=== PATIENT | male | born 1990 ===

== ENCOUNTER 2020-05-16 17:12 | Emergency (ER) | payer OTHER, MEDICAID, SELFPAY ==
[2020-05-16 18:59] VITALS: BP 130/73; PULSE 81; RESP 16; TEMP 37.1; O2SAT 98; BMI 21.0
--- NOTE | 2020-05-16 19:00 | XR_ITS ---
EXAMINATION: XR FOOT, RIGHT CLINICAL INFORMATION: Pain, injury COMPARISON: None TECHNIQUE: AP, lateral, and oblique views of the right foot. FINDINGS: No evidence for an acute fracture or dislocation. Alignment is within normal limits. XR/XR foot RT min 3V IMPRESSION: No acute fracture or dislocation.
--- NOTE | 2020-05-16 19:38 | PC.NURSE ---
patient a&ox3, rle 11/16 pain, + csm/pulses, will continue to monitor.
[2020-05-16 20:26] VITALS: BP 128/72; PULSE 83; RESP 17; TEMP 36.8; O2SAT 98
--- NOTE | 2020-05-16 20:30 | ED_ITS ---
HPI - Extremity Injury (Lower) General Chief Complaint: Extremity Injury, Lower Stated Complaint: LEG PAIN Time Seen by Provider: 05/16/20 19:00 Source: patient Mode of arrival: ambulatory Limitations: no limitations History of Present Illness HPI Narrative: States was helping another colleague at work and lifted got dropped on his right foot. He did have work boots on. States 7 pain to the dorsum of the distal right foot. Date of injury 05/16/2020 Occurred at work from [employer] Up-to-date on tetanus vaccination Walking with slight limp Onset (ago): minute(s) Type of Injury: other (Crushing like injury) Place: work Severity: mild Exacerbating factors: weight bearing Context: direct blow Associated symptoms: ambulatory Other symptoms: none Related Data Allergies Allergy/AdvReac Type Severity Reaction Status Date / Time No Known Allergies Allergy Unverified 01/25/20 19:48 [No Known Allergies*] Review of Systems Review of Systems: Constitutional: No Weight loss, No Fever, No Chills, No Night Sweats, No Fatigue, No Malaise ENT/Mouth: No Hearing loss, No Ear Pain, No Nasal Congestion, No Sinus Pain, No Hoarseness, No sore throat, No Rhinorrhea, No Swallowing Difficulty Eyes: No Eye Pain Cardiovascular: No Chest Pain Respiratory: No Cough Gastrointestinal: No abdominal pain Musculoskeletal: No joint pain, No Myalgias, No Joint Swelling, positive right foot pain Skin: No Skin Lesions, No rash Neuro: No Weakness, No Numbness, No Paresthesias, No Loss of Consciousness, No Dizziness, No Headache Psych: No Social Issues Heme/Lymph: No Bruising, No Bleeding,No Lymphadenopathy Endocrine: No Polyuria, No Polydipsia, No Temperature Intolerance Yes all other systems are reviewed and are negative [facility] Past Medical History Medical History (Updated 05/16/20 @ 20:32 by Joaquín Salcido NP) Anxiety Asthma Social History Social History Smoking Status: Current every day smoker Use of substances other than those prescribed or required for medical reasons: No Advance Directives: No Physical Exam Vital Signs: Vital Signs: Last Vital Signs Temp 98.3 F 05/16/20 20:26 Pulse 83 05/16/20 20:26 Resp 17 05/16/20 20:26 BP 128/72 05/16/20 20:26 Pulse Ox 98 05/16/20 20:26 Body Mass Index 21.0 Reviewed Const: General: cooperative and healthy appearing; No acute distress or intoxicated appearing Nutritional Appearance: average body habitus Orientation/consciousness: patient oriented x3 Resp: Effort & Inspection: normal respiratory effort Cardio: Jugular venous distension: no JVD Skin: General skin exam: no rashes or lesions noted Neuro: General: patient oriented x3 Extrem: Other: Dorsum right foot without any obvious ecchymoses, swelling, erythema or injury. Mild tender palpation over the distal dorsal aspect of the foot. General: Yes normal to inspection Course Course Course Narrative: X-ray no acute fracture. Willie wrap, comfort care and will follow-up with [facility]. Ambulatory steady gait with Willie wrap. MDM - Extremity Injury (Lower) Medical Records Attestation: I reviewed the patient's medical records. Lab Data Attestation: I reviewed the patient's lab results. Imaging Data Right foot x-ray: Radiologist's impression: [place] [id number] XRay Report Signed Patient: Yash Almaraz#: [id number] : 1990Acct:[id number] Age/Sex: 29 / MADM Date: 05/16/20 Loc: HO.ED Attending Dr: Ordering Physician: Joaquín Salcido NP Date of Service: 05/16/20 Procedure(s): XR foot RT min 3V Accession Number(s): [id number] cc: Joaquín Salcido NP~ EXAMINATION: XR FOOT, RIGHT CLINICAL INFORMATION: Pain, injury COMPARISON: None TECHNIQUE: AP, lateral, and oblique views of the right foot. FINDINGS: No evidence for an acute fracture or dislocation. Alignment is within normal limits. XR/XR foot RT min 3V IMPRESSION: No acute fracture or dislocation. Dictated By:GEORGI GARCIA MD Signed By:<Electronically signed by GEORGI GARCIA MD in OV>05/16/201956 DD/ 99 TD/TT: List Of First Job Ideas: GT Discharge Plan Discharge Clinical Impression: Contusion of foot, right Patient Disposition: Home, Self-Care Instructions: Foot Contusion (ED) Additional Instructions: You suffered a foot bruise The x-ray of your foot does not show any evidence of broken bones Ice, elevate, rest Willie wrap for comfort Tylenol or Motrin [id number] for pain discomfort Return if any concerns or worsening symptoms otherwise follow-[facility] as needed as this injury occurred at work Thank you Referrals: [facility] [Provider Group] - 2 days Stand Alone Forms: Work/School Release
== END 2020-05-16 20:55 | disposition home or self-care (01) ==
PROVIDERS: Emergency Provider Internal Medicine
DX: S90.32XA Contusion of left foot, initial encounter (principal); W20.8XXA Other cause of strike by thrown, projected or falling object, initial encounter; Y93.89 Activity, other specified; Y92.9 Unspecified place or not applicable; Y99.0 Civilian activity done for income or pay
CPT/HCPCS: 73630; 99283; 99284

== ENCOUNTER 2020-09-11 10:02 | Outpatient (REF) | payer MEDICAID, SELFPAY ==
--- NOTE | 2020-09-11 13:43 | MHC.AU.ANO ---
Adult Audiological Evaluation Date of Visit: 09/11/20 Import Specialist Used: Estonian- In Person Reason for Appointment: Patient recently had a hearing screening at his place of employment. He was found to have high frequency hearing loss, and a full evaluation was recommended. He reports that at his previous job, he was in loud noise for a majority of the day and used ear plugs. At his current job, he is in noise less often. He reports that occasionally, he will need to enter a room where loud machinery is still running, but it is not for long stretches of time. Patient reports that it is difficult to hear people who are behind him. It is also difficult to understand people when there is a lot of background noise. Patient has also been experiencing pain in his right ear. Hearing Handicap Inventory: HHIE SCORE: 8 Based on HHIE score, patient has: No perceived hearing handicap Ear History: Recent Ear Drainage: None Reported Recent Ear Pain: Right Ear Family History of Hearing Loss?: No Recent Ear Infections: None Reported History of Ear Wax Buildup: None Reported Previous Ear Surgery: None Reported Bothersome Tinnitus/Ringing/Noises in Ears: Both Ears Ear used on the phone: Both Ears Blocked/Full Sensation in Ear(s): None Reported History of occupational noise exposure?: Yes History: No Medical History: Medical History: Headache, High Blood Pressure, Tobacco Use, Asthma Otoscopy: Right Ear: Unremarkable Left Ear: Unremarkable Tympanometry: Tympanometry performed due to: To assess integrity of the middle ear system Right Ear: Normal Middle Ear System (Type A) Left Ear: Normal Middle Ear System (Type A) Otoacoustic Emissions Frequency Range Used: 1.6-8 kHz Right Ear Results: Present 1.6-3 kHz, Absent 4-8 kHz Analysis: Reduced/Absent emissions suggest cochlear dysfunction Results are consistent with degree and configuration of hearing loss Left Ear Results: Present 1.6-3 kHz, Absent 4-8 kHz Analysis: Reduced/Absent emissions suggest cochlear dysfunction Results are consistent with degree and configuration of hearing loss Hearing Evaluation: Transducer(s) Used: Insert Earphones Method: Conventional Audiometry Stimuli Used: Pure Tones Right Ear: Description of Hearing: Normal 250-4000 Hz, sloping to moderate sensorineural hearing loss at 6000 Hz and rising to mild at 8000 Hz Left Ear: Description of Hearing: Normal 250-3000 Hz, sloping to moderate sensorineural hearing loss at 1275-0707 Hz and rising to mild at 8000 Hz Speech Recognition Threshold (SRT): Method Used: Recorded Lists Right Ear: 20 dBHL Left Ear: 25 dBHL Word Discrimination: Method: Recorded Lists Word Lists Used: Lista Bisil?bica (Estonian) Right Ear: 96% at 60 dBHL Left Ear: 96% at 65 dBHL Interpretation of Results: Patient presents with normal low and mid frequency hearing. In both ears (worse in the left), there is a notch to moderate hearing loss around 6000 Hz that rises back to mild at 8000 Hz. In a quiet environment, it is likely that the patient is able to follow along well in conversation. If the speaker is not directly in front of him, or if he is in a noisy environment, he likely has increased difficulty understanding speech. Hearing aids are not warranted at this time. Recommendations: Audiological re-evaluation in one year. Hearing protection should be used when around loud noise. Hearing aids are not yet warranted. Follow-up with PCP or referral to Ear, Nose, and Throat may be warranted to discuss pain in right ear, as well as asymmetry at 4000 Hz (left ear worse). To help optimize the patient's hearing: -Minimize background noise whenever possible. -Speak in a clear voice, from a close distance, and [id number]. -Gain the patient's full attention before talking. -Patient may benefit from use of headphones, such as the Maria Esther Hearphones, that provide slight amplification while reducing background noise. These types of products would be most practical for situations where external noise cannot be controlled, such as a busy restaurant or at a gathering. They are not intended for use all day, and are not intended to be used as a hearing aid. Diagnosis: Primary Diagnosis: H90.3 Bilateral Sensorineural Hearing Loss Services Performed: Comprehensive Audiological Evaluation (CPT 92297), Limited Otoacoustic Emissions (CPT 04420), Tympanometry (CPT 64310) Signature: Provider: Eloise Arriola, [facility]
== END 2020-09-11 10:03 | disposition home or self-care (01) ==
LOC: HO.SH 10:02
PROVIDERS: Visit Provider Registered Nurse
DX: H90.3 Sensorineural hearing loss, bilateral (principal)
CPT/HCPCS: 92557; 92567; 92587

== ENCOUNTER 2020-11-10 04:14 | Emergency (ER) | payer MEDICAID, SELFPAY ==
[2020-11-10 04:30] VITALS: BP 126/70; PULSE 76; RESP 18; TEMP 36.8; O2SAT 97; BMI 24.4
--- NOTE | 2020-11-10 05:22 | ED.GENADULT ---
HPI - General Adult General Chief complaint: General Medical Stated complaint: multiple complaints Time Seen by Provider: 11/10/20 05:22 Source: patient and deaf interpreter Mode of arrival: ambulatory History of Present Illness HPI narrative: 29-year-old male with presentation for posterior left knee pain for 1 week that he states has worsened over time and associated with some mild pain when going up and down stairs. In addition, he states that he feels like his albuterol inhaler has not been working as well as usual. Otherwise, he denies any fevers, chills, cough, sore throat. Related Data Previous Rx's Medication Instructions Recorded cephalexin 500 mg PO Q12H 5 Days #10 cap 11/10/20 prednisone 40 mg PO DAILY 4 Days #8 tab 11/10/20 Allergies Allergy/AdvReac Type Severity Reaction Status Date / Time seafood Allergy Anaphylaxis Verified 11/10/20 04:36 Review of Systems Review of Systems: Pertinent positives and negatives as stated in HPI 10 point review of systems otherwise negative. [facility] Past Medical History Source: nursing notes reviewed Medical History Anxiety Asthma Depression Social History Social History Advance Directives: No Advance Directives Information Provided: No Physical Exam Vital Signs: Vital Signs: Last Vital Signs Temp 98.2 F 11/10/20 04:30 Pulse 66 11/10/20 05:59 Resp 18 11/10/20 04:30 BP 126/70 11/10/20 04:30 Pulse Ox 97 11/10/20 04:30 Body Mass Index 24.4 VITAL SIGNS: Reviewed. GENERAL: Well developed, well nourished, in no acute distress. HEAD: Normocephalic/atraumatic EYES: PERRLA, EOMI OROPHARYNX: no oral lesions noted, posterior pharynx clear NECK: Supple, no adenopathy LUNGS: Normal breath sounds , no tachypnea, no increased work of breathing, able to speak in full sentences. SpO2<97> CARDIOVASCULAR: Regular rate and rhythm without noted murmurs ABDOMEN: Soft, non-tender, non-distended with bowel sounds. MUSCULOSKELETAL: No tenderness, deformities, but mild swelling noted at the left posterior knee with surrounding erythema and apparent rash over this area EXTREMITIES: No cyanosis, clubbing or edema. SKIN: Inspection of the skin reveals but papular rash noted to the left posterior knee NEUROLOGIC: Alert and oriented x 4. Strength and sensation to light touch were grossly intact x 4. Course Course Course Narrative: 29-year-old male with history and clinical presentation suggestive of possible Matthews cyst to left posterior knee and will provide patient with an albuterol treatment and initiate a short course oral steroids. On re-evaluation patient states that he is feeling better after receiving the albuterol treatment and he will be discharged in stable condition with remaining course of antibiotics. Discharge Plan Discharge Clinical Impression: Asthma, Matthews's cyst of knee, Cellulitis Patient Disposition: Home, Self-Care Instructions: Asthma (ED), Bakers Cyst (ED) Additional Instructions: 1. Mantenga la envoltura Willie en [place] lugar siempre que est? caminando. 2. Complete todo el ciclo de antibi?ticos y elizabeth un seguimiento con lakhani proveedor de atenci?n primaria para serafin reevaluaci?n en 2-3 d?as. Regrese a la omid de emergencias si krsitel s?ntomas empeoran. Prescriptions: New cephalexin 500 mg capsule 500 mg PO Q12H 5 Days Qty: 10 RF: 0 prednisone 20 mg tablet 40 mg PO DAILY 4 Days Qty: 8 RF: 0 Referrals: [facility] [Primary Care Provider] - 2 days Print Language: Vincentian
[2020-11-10] MEDS: cephALEXin 500 MG CAPSULE PO (05:45)
[2020-11-10] MEDS: predniSONE 20 MG TABLET 40 MG PO (05:46)
[2020-11-10] MEDS: Albuterol Sulfate (0.083%) 2.5 MG/3 ML VIAL.NEB 5 MG INHALE (05:56)
[2020-11-10 05:59] VITALS: PULSE 66; O2SAT 100
== END 2020-11-10 07:08 | disposition home or self-care (01) ==
PROVIDERS: Emergency Provider Student in an Organized Health Care Education/Training Program
DX: L03.116 Cellulitis of left lower limb (principal); M71.22 Synovial cyst of popliteal space [Baker], left knee; J45.909 Unspecified asthma, uncomplicated
CPT/HCPCS: 94640; 99283; 99284

== ENCOUNTER 2022-07-14 14:28 | Emergency (ER) | payer MEDICAID, SELFPAY ==
--- NOTE | ~2022-07-14 | XR_ITS ---
EXAMINATION: XR CHEST CLINICAL INFORMATION: Left flank tenderness COMPARISON: None TECHNIQUE: 2 views of the chest were obtained. FINDINGS: No significant abnormality is noted involving the heart, lungs, mediastinum, bony thorax or soft tissues. XR/XR chest 2V IMPRESSION: Unremarkable examination.
--- NOTE | 2022-07-14 14:51 | ED_ITS ---
HPI - Abdominal Pain General Chief Complaint: Back Pain/Injury <Yaquelin Bahena CNP - Last Filed: 07/14/22 14:58> Stated Complaint: Lower back pain/LLQ pain <Yaquelin Bahena CNP - Last Filed: 07/14/22 14:58> Time Seen by Provider: 07/14/22 16:11 <Yaquelin Bahena CNP - Last Filed: 07/14/22 14:58> Source: patient <ALIREZA Pompa - Last Filed: 07/14/22 18:57> Mode of arrival: ambulatory <ALIREZA Pompa Last Filed: 07/14/22 18:57> History of Present Illness HPI narrative: 31-year-old male with a past medical history of anxiety, asthma, depression, presenting to the ED complaining of left sided back pain radiating to LLQ x4 days. Reports pain is intermittent, worse with deep breathing and movement. Admits to similar symptoms in the past with MSK strain. Also reports left calf pain last night which is resolved at present. Denies fever, chills, cough, SOB/CP, nausea, vomiting, dysuria/hematuria, testicular pain, recent travel, history of clots <ALIREZA Pompa Last Filed: 07/14/22 18:57> MD elicited complaint: abdominal pain and flank pain <ALIREZA Pompa Last Filed: 07/14/22 18:57> Related Data Home Medications: Previous Rx's Medication Instructions Recorded cephalexin 500 mg capsule 500 mg PO Q12H 5 days #10 caps 11/10/20 prednisone 20 mg tablet 40 mg PO DAILY 4 days #8 tabs 11/10/20 acetaminophen 500 mg tablet 500 mg PO Q6H PRN fever or pain 07/14/22 (Tylenol Extra Strength) #14 tabs cyclobenzaprine 5 mg tablet 5 mg PO Q8H PRN pain (scale score 07/14/22 7-10) 5 days #14 tabs lidocaine 5 % topical patch 1 patch topical DAILY PRN pain #30 07/14/22 (Lidoderm) ea naproxen 500 mg tablet 500 mg PO BID PRN pain 10 days #20 07/14/22 tabs <Yaquelin Bahena CNP - Last Filed: 07/14/22 14:58> Allergies/Adverse Reactions: Allergies Allergy/AdvReac Type Severity Reaction Status Date / Time seafood Allergy Anaphylaxis Verified 11/10/20 04:36 <Yaquelin Bahena CNP - Last Filed: 07/14/22 14:58> Review of Systems Review of Systems Constitutional: No Fever, No Chills, No Fatigue, No Malaise ENT/Mouth: No Ear Pain, No Hoarseness, No sore throat, No Rhinorrhea, No Swallowing Difficulty Eyes: No Eye Pain, No Swelling, No Redness Cardiovascular: No Chest Pain, No SOB, No Edema, No Palpitations Respiratory: No Cough, No Sputum, No Dyspnea Gastrointestinal: No Nausea, No Vomiting, No Diarrhea, No Constipation, + Abdominal pain Genitourinary: No irregular bleeding, No Dysuria, No Urinary Frequency, No Hematuria, No Urinary Incontinence/retention, No Urgency, +Flank Pain Musculoskeletal: +L calf pain, No Myalgias, No Joint Swelling Skin: No Skin Lesions, No rash Neuro: No Weakness, No Numbness, No Paresthesias, No Headache <ALIREZA Pompa - Last Filed: 07/14/22 18:57> Yes all other systems are reviewed and are negative <ALIREZA Pompa Last Filed: 07/14/22 18:57> Constitutional: Reports as per HPI <ALIREZA Pompa - Last Filed: 07/14/22 18:57> PMFSH Past Medical History Attestation statement: The following information was validated with the patient. <ALIREZA Pompa - Last Filed: 07/14/22 18:57> Medical History: Medical History Anxiety Asthma Depression <Yaquelin Bahena CNP - Last Filed: 07/14/22 14:58> Social History Social History: Social History Advance Directives: No Advance Directives Information Provided: No <Yaquelin Bahena CNP - Last Filed: 07/14/22 14:58> Physical Exam ED Vital Signs: Vital Signs - 24 hr 07/14/22 14:56 Temperature 98 F Pulse Rate 74 Respiratory Rate 18 Blood Pressure 109/79 Pulse Oximetry 99 Oxygen Delivery Method Room Air BMI result Body Mass Index 25.1 <Yaquelin Bahena CNP - Last Filed: 07/14/22 14:58> Vital Signs - 24 hr 07/14/22 14:56 Temperature 98 F Pulse Rate 74 Respiratory Rate 18 Blood Pressure 109/79 Pulse Oximetry 99 Oxygen Delivery Method Room Air BMI result Body Mass Index 25.1 <ALIREZA Pompa - Last Filed: 07/14/22 18:57> Const General: cooperative, healthy appearing and no acute distress <ALIREZA Pompa - Last Filed: 07/14/22 18:57> Orientation/consciousness: patient oriented x3 <ALIREZA Pompa - Last Filed: 07/14/22 18:57> Limitations: no limitations <ALIREZA Pompa - Last Filed: 07/14/22 18:57> HENMT Head: Yes normal to inspection and Yes atraumatic <ALIREZA Pompa - Last Filed: 07/14/22 18:57> Ears: hearing grossly normal bilaterally <ALIREZA Pompa - Last Filed: 07/14/22 18:57> General nose exam: Normal external nose present <ALIREZA Pompa Last Filed: 07/14/22 18:57> Face and sinus: Yes normal facial exam <ALIREZA Pompa - Last Filed: 07/14/22 18:57> Eyes General: appearance normal, both eyes and all related structures <ALIREZA Pompa - Last Filed: 07/14/22 18:57> EOM: EOMs intact bilaterally <ALIREZA Pompa - Last Filed: 07/14/22 18:57> Neck Neck: Yes normal visual inspection and Yes no meningeal signs <ALIREZA Pompa Last Filed: 07/14/22 18:57> Chest Chest palpation & inspection: normal inspection of the chest, no crepitus and tenderness (Left posterior lateral ribs. No flail chest) <ALIREZA Pompa Last Filed: 07/14/22 18:57> Resp Effort & Inspection: normal respiratory effort and no respiratory distress <ALIREZA Pompa Last Filed: 07/14/22 18:57> Auscultation: clear to auscultation bilaterally, no crackles, no rales and no rhonchi <Emerita Lezama PA - Last Filed: 07/14/22 18:57> Cardio Rate: regular rate <Emerita Lezama PA - Last Filed: 07/14/22 18:57> Heart sounds: S1 normal heart sound present and S2 normal heart sound present <Emerita Lezama PA - Last Filed: 07/14/22 18:57> GI Inspection: Yes normal to inspection <Emerita Lezama PA - Last Filed: 07/14/22 18:57> Palpation (GI): Soft to palpation, nontender, no guarding and not rigid <Emerita Lezama PA - Last Filed: 07/14/22 18:57> General: Yes CVA tenderness on the left <Emerita Lezama PA - Last Filed: 07/14/22 18:57> Back/Spine/Pelvis Other: No midline thoracic/lumbar spinous tenderness/step-off or deformity <Emerita Lezama PA - Last Filed: 07/14/22 18:57> Back: CVA tenderness <Emerita Lezama PA - Last Filed: 07/14/22 18:57> Skin Rashes: no rashes <Emerita Lezama PA - Last Filed: 07/14/22 18:57> Wounds: no wounds <Emerita Lezama PA - Last Filed: 07/14/22 18:57> Neuro General: patient oriented x3, tone normal and no meningeal signs <Emerita Lezama PA - Last Filed: 07/14/22 18:57> Gait exam (Neuro): Normal gait present <Emerita Lezama PA - Last Filed: 07/14/22 18:57> Extrem Other: Strength intact throughout. No saddle anesthesia. Sensation intact to light touch. Neurovascular intact distally <Emerita Lezama PA - Last Filed: 07/14/22 18:57> General: Yes normal to inspection, Yes no pedal edema and Yes no calf tenderness <Emerita Lezama PA - Last Filed: 07/14/22 18:57> Course Course Course Narrative: This is an RME: Additional HPI, ROS, PE not included below will be deferred to primary provider. Patient is a 31-year-old male presents emergency department for evaluation. He is reporting left lower back pain radiating into the left abdomen, pain intermittent with onset 3 days ago. Has trialed Advil and Tylenol without any improvement. Denies dysuria, hematuria, urinary frequency, nausea, vomiting, diarrhea. Pain is exacerbated with particular movements such as forward bending or twisting. Reports an episode of heavy lifting while at work 2-3 months ago but did not have any pain afterwards. Plan: Urinalysis. placed back in waiting room pending bed availability <Yaquelin Bahena CNP - Last Filed: 07/14/22 14:58> This is an RME: Additional HPI, ROS, PE not included below will be deferred to primary provider. Patient is a 31-year-old male presents emergency department for evaluation. He is reporting left lower back pain radiating into the left abdomen, pain intermittent with onset 3 days ago. Has trialed Advil and Tylenol without any improvement. Denies dysuria, hematuria, urinary frequency, nausea, vomiting, diarrhea. Pain is exacerbated with particular movements such as forward bending or twisting. Reports an episode of heavy lifting while at work 2-3 months ago but did not have any pain afterwards. Plan: Urinalysis. placed back in waiting room pending bed availability -UA without blood. Trace protein and ketones XR chest 2V IMPRESSION: Unremarkable examination. >1834--D-dimer negative. Results discussed with patient including worrisome signs and symptoms and strict return precautions, and when to return to the emergency department. They verbalized understanding and feel safe for discharge at this time. <ALIREZA Pompa - Last Filed: 07/14/22 18:57> Medical Decision Making Medical Decision Making MDM Narrative: 31-year-old male with a past medical history of anxiety, asthma, depression, presenting to the ED complaining of left sided back pain radiating to LLQ x4 days. On exam vital signs stable, NAD, nontoxic appearing, abdomen soft and nontender, no midline spinous tenderness to or red flag symptoms. Left posterior lateral rib tenderness/left CVA tenderness noted. Ambulating with steady gait. Concern for PE vs pneumonia vs pyelo/renal stone. Lower suspicion for diverticulitis/pancreatitis/cholecystitis or appendicitis. Unlikely testicular torsion Plan: CXR, UA, D-dimer Please refer to course for remaining clinical decision making, interpretation of labs/imaging results, and discussions with consultants and/or family members. <ALIREZA Pompa - Last Filed: 07/14/22 18:57> Differential Diagnosis Differential Diagnoses: The differential diagnosis associated with the presentation includes <ALIREZA Pompa - Last Filed: 07/14/22 18:57> as above <ALIREZA Pompa - Last Filed: 07/14/22 18:57> Admission/Observation Consideration of admission/observation: Escalation of care including admission/observation considered <ALIREZA Pompa - Last Filed: 07/14/22 18:57> Lab Data MDM Lab Attestation statement: I reviewed the patient's lab results. <ALIREZA Pompa - Last Filed: 07/14/22 18:57> Labs: Lab Results 07/14/22 07/14/22 Range/Units 15:10 17:35 D-Dimer High Sensitivty < 150 NG/ML Urine Color Dark Yellow Urine Appearance Clear Urine pH 5.5 (5.0-9.0) Ur Specific [place] >= 1.030 H (1.005-1.025) Urine Protein Trace (Neg-Trace) mg/dL Urine Glucose (UA) Negative (Negative) mg/dL Urine Ketones Trace (Negative) mg/dL Urine Blood Negative (Negative) Urine Nitrite Negative (Negative) Ur Leukocyte Esterase Negative (Negative) <Yaquelin Bahena CNP - Last Filed: 07/14/22 14:58> Lab Results 07/14/22 07/14/22 Range/Units 15:10 17:35 D-Dimer High Sensitivty < 150 NG/ML Urine Color Dark Yellow Urine Appearance Clear Urine pH 5.5 (5.0-9.0) Ur Specific [place] >= 1.030 H (1.005-1.025) Urine Protein Trace (Neg-Trace) mg/dL Urine Glucose (UA) Negative (Negative) mg/dL Urine Ketones Trace (Negative) mg/dL Urine Blood Negative (Negative) Urine Nitrite Negative (Negative) Ur Leukocyte Esterase Negative (Negative) <ALIREZA Pompa - Last Filed: 07/14/22 18:57> Radiology Impression Discussion of test interpretation with radiology: I have reviewed the radiologist's reading. <ALIREZA Pompa - Last Filed: 07/14/22 18:57> External Record Review External record reviewed: Office record, Outpatient record and Primary care record <ALIREZA Pompa - Last Filed: 07/14/22 18:57> Prescription Management I considered prescription management with: Pain Medication <ALIREZA Pompa - Last Filed: 07/14/22 18:57> Discharge Plan Discharge Clinical Impression: Thoracic back pain <Yaquelin Bahena CNP - Last Filed: 07/14/22 14:58> Patient Disposition: Home, Self-Care <Yaquelin Bahena CNP - Last Filed: 07/14/22 14:58> Instructions: Thoracic Pain (ED) <Yaquelin Bahena CNP - Last Filed: 07/14/22 14:58> Additional Instructions: Your pain is likely musculoskeletal Flexeril is a muscle relaxer, take at night as it makes you drowsy, do not drive, drink alcohol, or operate machinery while taking it Naproxen as an anti-inflammatory / pain medication, take with food Lidoderm patches are numbing patches, apply to painful area In addition take Tylenol at home If symptoms persist or worsen, pain becomes unbearable, you developed urinary retention or incontinence, or weakness return to the ED <Yaquelin Bahena CNP - Last Filed: 07/14/22 14:58> Prescriptions: New acetaminophen [Tylenol Extra Strength] 500 mg tablet 500 mg PO Q6H PRN (Reason: fever or pain) Qty: 14 0RF lidocaine [Lidoderm] 5 % adhesive patch,medicated 1 patch topical DAILY MDD remove after 12 hours PRN (Reason: pain) Qty: 30 0RF Rx Instructions: leave on most painful area for up to 12 hrs naproxen 500 mg tablet 500 mg PO BID PRN (Reason: pain) 10 Days Qty: 20 0RF cyclobenzaprine 5 mg tablet 5 mg PO Q8H PRN (Reason: pain (scale score 7-10)) 5 Days Qty: 14 0RF No Action cephalexin 500 mg capsule 500 mg PO Q12H 5 Days Qty: 10 0RF prednisone 20 mg tablet 40 mg PO DAILY 4 Days Qty: 8 0RF <Yaquelin Bahena CNP - Last Filed: 07/14/22 14:58> Referrals: [facility] [Primary Care Provider] - 5 days <Yaquelin Bahena CNP - Last Filed: 07/14/22 14:58> Stand Alone Forms: Work/School Release <Yaquelin Bahena CNP - Last Filed: 07/14/22 14:58>
[2022-07-14 14:56] VITALS: BP 109/79; PULSE 74; RESP 18; TEMP 36.6; O2SAT 99; BMI 25.1
[2022-07-14 15:17] LABS: Appearance Urine Clear; Color Urine Dark Yellow; Glucose Urine UA Negative (Negative); Leukocyte Esterase Urine Negative (Negative); Nitrite Urine Negative (Negative); PH 5.5 (5.0-9.0); Specific Gravity - Urine >= 1.030 (1.005-1.025); Urine Blood Negative (Negative); Urine Ketones Trace mg/dL (Negative); Urine Protein Trace mg/dL (Neg-Trace)
[2022-07-14 18:09] LABS: D Dimer High Sensitivity < 150 NG/ML
== END 2022-07-14 19:06 | disposition home or self-care (01) ==
PROVIDERS: Nurse Practitioner Family; Physician Assistant; Emergency Provider Emergency Medicine
DX: M54.50 Low back pain, unspecified (principal); R10.32 Left lower quadrant pain; M54.6 Pain in thoracic spine; R07.81 Pleurodynia; Z79.899 Other long term (current) drug therapy
CPT/HCPCS: 36415; 71046; 81003; 85379; 99282; 99283

== ENCOUNTER 2022-08-10 17:08 | Emergency (ER) | payer MEDICAID, SELFPAY ==
[2022-08-10 17:31] VITALS: BP 152/79; PULSE 85; RESP 18; TEMP 37.1; O2SAT 98; BMI 24.4
--- NOTE | 2022-08-10 17:32 | ED.ABDPAIN ---
HPI - Abdominal Pain General Chief Complaint: Abdominal Pain <ALIREZA Díaz - Last Filed: 08/10/22 17:34> Stated Complaint: abd pain/ diarrhea <ALIREZA Díaz - Last Filed: 08/10/22 17:34> Time Seen by Provider: 08/10/22 18:14 <ALIREZA Díaz - Last Filed: 08/10/22 17:34> Source: patient, RN notes reviewed and old records reviewed <Sarthak Peace - Last Filed: 08/10/22 19:04> Mode of arrival: ambulatory <Sarthak Peace - Last Filed: 08/10/22 19:04> Limitations: no limitations <Sarthak Peace - Last Filed: 08/10/22 19:04> History of Present Illness HPI narrative: 30-year-old male presents for evaluation of abdominal pain. patient reports that he vomited once 3 days ago on Wednesday. He has not vomited since. However he has had mid upper abdominal pain for last 3 days. Also had diarrhea several times per day denies any blood in the stool rates discomfort as 6/10. Denies any fevers, chills. Denies any history of abdominal surgeries Denies any burning urination or urinary complaints <Sarthak Peace - Last Filed: 08/10/22 19:04> Related Data Home Medications: Previous Rx's Medication Instructions Recorded cephalexin 500 mg capsule 500 mg PO Q12H 5 days #10 caps 11/10/20 prednisone 20 mg tablet 40 mg PO DAILY 4 days #8 tabs 11/10/20 acetaminophen 500 mg tablet 500 mg PO Q6H PRN fever or pain 07/14/22 (Tylenol Extra Strength) #14 tabs cyclobenzaprine 5 mg tablet 5 mg PO Q8H PRN pain (scale score 07/14/22 7-10) 5 days #14 tabs lidocaine 5 % topical patch 1 patch topical DAILY PRN pain #30 07/14/22 (Lidoderm) ea naproxen 500 mg tablet 500 mg PO BID PRN pain 10 days #20 07/14/22 tabs loperamide 2 mg capsule (Imodium 2 mg PO Q4H PRN loose stool #20 08/10/22 A-D) caps ondansetron 4 mg disintegrating 4 mg PO Q8H PRN nausea and 08/10/22 tablet vomiting #20 tabs <ALIREZA Díaz - Last Filed: 08/10/22 17:34> Allergies/Adverse Reactions: Allergies Allergy/AdvReac Type Severity Reaction Status Date / Time seafood Allergy Anaphylaxis Verified 11/10/20 04:36 <ALIREZA Díaz - Last Filed: 08/10/22 17:34> Review of Systems Constitutional: Reports as per HPI, Denies chills, Denies fatigue, Denies fever(s) and Denies headache(s) <Sarthak Peace - Last Filed: 08/10/22 19:04> Denies headache(s) <Sarthak Peace - Last Filed: 08/10/22 19:04> Cardiovascular: Denies chest pain and Denies dyspnea <Sarthak Peace - Last Filed: 08/10/22 19:04> Respiratory: Denies cough and Denies dyspnea <Sarthak Peace - Last Filed: 08/10/22 19:04> Gastrointestinal: Reports abdominal pain, Denies constipation and Reports diarrhea <Sarthak Peace - Last Filed: 08/10/22 19:04> Genitourinary: Denies difficulty urinating and Denies dysuria <Sarthak Peace - Last Filed: 08/10/22 19:04> Denies headache(s) and Denies focal weakness <Sarthak Peace - Last Filed: 08/10/22 19:04> Endocrine: Denies fatigue <Sarthak Peace - Last Filed: 08/10/22 19:04> [facility] Past Medical History Medical History: Medical History Anxiety Asthma Depression <ALIREZA Díaz - Last Filed: 08/10/22 17:34> Social History Social History: Social History Advance Directives: No Advance Directives Information Provided: No <ALIREZA Díaz - Last Filed: 08/10/22 17:34> Physical Exam ED Vital Signs: Vital Signs - 24 hr 08/10/22 17:31 Temperature 98.8 F Pulse Rate 85 Respiratory Rate 18 Blood Pressure 152/79 H Pulse Oximetry 98 Oxygen Delivery Method Room Air BMI result Body Mass Index 24.4 <ALIREZA Díaz - Last Filed: 08/10/22 17:34> Vital Signs - 24 hr 08/10/22 17:31 Temperature 98.8 F Pulse Rate 85 Respiratory Rate 18 Blood Pressure 152/79 H Pulse Oximetry 98 Oxygen Delivery Method Room Air BMI result Body Mass Index 24.4 <Sarthak FooteLafitte - Last Filed: 08/10/22 19:04> Const General: healthy appearing, comfortable, no acute distress, alert and awake <Sarthak O - Last Filed: 08/10/22 19:04> Nutritional Appearance: well nourished <Sarthak Last Filed: 08/10/22 19:04> Orientation/consciousness: patient oriented x3 <Sarthak - Last Filed: 08/10/22 19:04> HENMT Head: Yes normocephalic and Yes atraumatic <Sarthak - Last Filed: 08/10/22 19:04> Throat: Yes posterior oropharynx normal <Sarthak Last Filed: 08/10/22 19:04> Eyes Eyelids: Yes eyelids normal <Sarthak Last Filed: 08/10/22 19:04> Conjunctivae: conjunctivae normal <Sarthak - Last Filed: 08/10/22 19:04> Sclerae: sclerae normal <Sarthak Qamar Last Filed: 08/10/22 19:04> Corneas: corneas normal < - Last Filed: 08/10/22 19:04> Pupils: Equal, round and reactive pupils present <Sarthak Last Filed: 08/10/22 19:04> EOM: EOMs intact bilaterally <Sarthak Last Filed: 08/10/22 19:04> Neck Neck: Yes full ROM <Sarthak O Last Filed: 08/10/22 19:04> Resp Effort & Inspection: normal respiratory effort, able to speak in complete sentences, no audible wheezes and not labored <Sarthak Somersy - Last Filed: 08/10/22 19:04> Auscultation: clear to auscultation bilaterally <Sarthak FooteLafitte - Last Filed: 08/10/22 19:04> Cardio Rate: regular rate <Sarthak OLafitte - Last Filed: 08/10/22 19:04> Rhythm: regular rhythm <Sarthak OLafitte - Last Filed: 08/10/22 19:04> GI Inspection: No distended <Sarthak OLafitte - Last Filed: 08/10/22 19:04> Palpation (GI): Soft to palpation, not firm, Tenderness to palpation present (GI) in the epigastrum and in the LUQ; not in the LLQ, not in the RLQ and not in the RUQ, no guarding and not rigid <Sarthak FooteLafitte - Last Filed: 08/10/22 19:04> Auscultation: normoactive bowel sounds <Sarthak OLafitte - Last Filed: 08/10/22 19:04> Skin General skin exam: no rashes or lesions noted and elasticity normal <Sarthak OLafitte - Last Filed: 08/10/22 19:04> Neuro General: patient oriented x3 <Sarthak OEleazar - Last Filed: 08/10/22 19:04> Cranial nerves: Yes CN's II-XII intact bilaterally, Yes Equal, round and reactive pupils present and Yes Bilaterally intact EOM present <Sarthak FooteLafitte - Last Filed: 08/10/22 19:04> Cognition (Neuro): normal cognition <Sarthak Somersy - Last Filed: 08/10/22 19:04> Extrem Other: Moving all extremities well without any obvious deformities <Sarthakoscar Somersy - Last Filed: 08/10/22 19:04> Course Course Course Narrative: RME - 31 yo [place] speaking male presents to the ER for evaluation of 3 days of epigastric abdominal pain and diarrhea, 2-3 episodes per day. Had nausea and vomited once when the pain started 3 days ago. No improvement with Pepto. Only has mild epigastric tenderness on exam, no RUQ tenderness. Plan: lab workup, GI cocktail. hold off on imaging <ALIREZA Díaz - Last Filed: 08/10/22 17:34> Medical Decision Making Medical Decision Making MDM Narrative: 31-year-old male presents for evaluation of abdominal pain with vomiting x1 3 days ago and diarrhea since. He has no right upper quadrant or right lower quadrant tenderness. The symptoms are not related to eating per his report. Vital signs are stable. Symptoms most likely viral in etiology. Will treat with a GI cocktail and await labs. patient has no risk factors for C diff <Sarthak Peace - Last Filed: 08/10/22 19:04> Differential Diagnosis Gastroenteritis Peptic ulcer disease Pancreatitis Cholelithiasis Acute cholecystitis abdominal pain diarrhea <Sarthak Peace - Last Filed: 08/10/22 19:04> Lab Data Result Diagrams: 08/10/22 18:18 08/10/22 18:18 <ALIREZA Díaz - Last Filed: 08/10/22 17:34> Labs: Lab Results 08/10/22 08/10/22 Range/Units 18:18 18:18 WBC 4.3 L (4.8-10.8) X10*3/uL RBC 5.01 (4.60-5.80) X10*6/uL Hgb 15.4 (14.0-18.0) g/dl Hct 44.5 (42.0-52.0) % MCV 88.8 (80.0-98.0) fL MCH 30.7 (27.0-33.0) pg MCHC 34.6 (31.0-36.0) g/dl RDW 11.5 (11.0-16.0) % Plt Count 292 (160-400) X10*3/uL MPV 10.7 (9.4-12.4) fL Immature Gran % (Auto) 0.2 (0.0-0.4) % Neut % (Auto) 40.7 L (45-73) % Lymph % (Auto) 41.9 H (20-40) % [place] % (Auto) 13.5 H (2-11) % Eos % (Auto) 3.0 (0-4) % Baso % (Auto) 0.7 (0-2) % Lymph # (Auto) 1.8 (1.2-4.9) X10*3/uL [place] # (Auto) 0.6 (0.1-1.2) X10*3/uL Eos # (Auto) 0.1 (0.0-0.4) X10*3/uL Baso # (Auto) 0.0 (0.0-0.2) X10*3/uL Abs Immat Gran (auto) 0.01 (0.00-0.03) X10*3/uL Absolute Neuts (auto) 1.8 L (2.0-8.3) x10*3/uL Absolute Nucleated RBC 0.000 (0.0-0.012) X10*3/uL Nucleated RBC % (auto) 0.0 (0.0-0.2) /100WBC Sodium 140 (135-145) mmol/L Potassium 4.2 (3.3-5.1) mmol/L Chloride 105 (96-108) mmol/L Carbon Dioxide 25 (22-29) mmol/L Anion Gap 14 (12-20) BUN 17 H (9-16) mg/dL Creatinine 0.98 (0.5-1.4) mg/dL Estim Creat Clear Calc 114.1 Estimated GFR > 60 Random Glucose 87 (60-115) mg/dL Calcium 9.3 (8.4-10.2) mg/dL Magnesium 2.2 (1.6-2.6) mg/dL Total Bilirubin 0.6 (0.0-1.0) mg/dL Direct Bilirubin 0.2 (0.0-0.5) mg/dL AST 19 (5-37) U/L ALT 30 (0-40) U/L Alkaline Phosphatase 72 (39-117) U/L Total Protein 7.4 (6.5-8.0) g/dL Albumin 4.9 (3.5-5.0) g/dL Lipase 38 (8-78) U/L <ALIREZA Díaz - Last Filed: 08/10/22 17:34> Lab Results 08/10/22 08/10/22 Range/Units 18:18 18:18 WBC 4.3 L (4.8-10.8) X10*3/uL RBC 5.01 (4.60-5.80) X10*6/uL Hgb 15.4 (14.0-18.0) g/dl Hct 44.5 (42.0-52.0) % MCV 88.8 (80.0-98.0) fL MCH 30.7 (27.0-33.0) pg MCHC 34.6 (31.0-36.0) g/dl RDW 11.5 (11.0-16.0) % Plt Count 292 (160-400) X10*3/uL MPV 10.7 (9.4-12.4) fL Immature Gran % (Auto) 0.2 (0.0-0.4) % Neut % (Auto) 40.7 L (45-73) % Lymph % (Auto) 41.9 H (20-40) % [place] % (Auto) 13.5 H (2-11) % Eos % (Auto) 3.0 (0-4) % Baso % (Auto) 0.7 (0-2) % Lymph # (Auto) 1.8 (1.2-4.9) X10*3/uL [place] # (Auto) 0.6 (0.1-1.2) X10*3/uL Eos # (Auto) 0.1 (0.0-0.4) X10*3/uL Baso # (Auto) 0.0 (0.0-0.2) X10*3/uL Abs Immat Gran (auto) 0.01 (0.00-0.03) X10*3/uL Absolute Neuts (auto) 1.8 L (2.0-8.3) x10*3/uL Absolute Nucleated RBC 0.000 (0.0-0.012) X10*3/uL Nucleated RBC % (auto) 0.0 (0.0-0.2) /100WBC Sodium 140 (135-145) mmol/L Potassium 4.2 (3.3-5.1) mmol/L Chloride 105 (96-108) mmol/L Carbon Dioxide 25 (22-29) mmol/L Anion Gap 14 (12-20) BUN 17 H (9-16) mg/dL Creatinine 0.98 (0.5-1.4) mg/dL Estim Creat Clear Calc 114.1 Estimated GFR > 60 Random Glucose 87 (60-115) mg/dL Calcium 9.3 (8.4-10.2) mg/dL Magnesium 2.2 (1.6-2.6) mg/dL Total Bilirubin 0.6 (0.0-1.0) mg/dL Direct Bilirubin 0.2 (0.0-0.5) mg/dL AST 19 (5-37) U/L ALT 30 (0-40) U/L Alkaline Phosphatase 72 (39-117) U/L Total Protein 7.4 (6.5-8.0) g/dL Albumin 4.9 (3.5-5.0) g/dL Lipase 38 (8-78) U/L <Sarthak Peace - Last Filed: 08/10/22 19:04> Medications Administered Discontinued Medications Generic Name Dose Route Start Last Admin Trade Name Freq PRN Reason Stop Dose Admin Al Hydroxide/Mg Hydroxide 30 ml 08/10/22 18:24 08/10/22 18:46 Magnesium Hydrox/Alum Hydrox 30 Ml Oral.Susp PO 08/10/22 18:25 30 ml ONCE ONE Administration Lidocaine HCl 15 ml 08/10/22 18:24 08/10/22 18:46 Lidocaine Hcl Viscous 2 % 15 Ml Solution MUCOUS MEM 08/10/22 18:25 15 ml ONCE ONE Administration Ondansetron HCl 4 mg 08/10/22 18:24 08/10/22 18:46 Ondansetron Odt 4 Mg Tab.Rapdis TRANSLINGU 08/10/22 18:25 4 mg ONCE ONE Administration <ALIREZA Díaz - Last Filed: 08/10/22 17:34> Medications Administered Discontinued Medications Generic Name Dose Route Start Last Admin Trade Name Freq PRN Reason Stop Dose Admin Al Hydroxide/Mg Hydroxide 30 ml 08/10/22 18:24 08/10/22 18:46 Magnesium Hydrox/Alum Hydrox 30 Ml Oral.Susp PO 08/10/22 18:25 30 ml ONCE ONE Administration Lidocaine HCl 15 ml 08/10/22 18:24 08/10/22 18:46 Lidocaine Hcl Viscous 2 % 15 Ml Solution MUCOUS MEM 08/10/22 18:25 15 ml ONCE ONE Administration Ondansetron HCl 4 mg 08/10/22 18:24 08/10/22 18:46 Ondansetron Odt 4 Mg Tab.Rapdis TRANSLINGU 08/10/22 18:25 4 mg ONCE ONE Administration <Sarthak Peace - Last Filed: 08/10/22 19:04> Discharge Plan Discharge Clinical Impression: Abdominal pain <ALIREZA Díaz - Last Filed: 08/10/22 17:34> Patient Disposition: Home, Self-Care <ALIREZA Díaz - Last Filed: 08/10/22 17:34> Instructions: Acute Diarrhea (ED) <ALIREZA Díaz - Last Filed: 08/10/22 17:34> Prescriptions: New ondansetron 4 mg tablet,disintegrating 4 mg PO Q8H PRN (Reason: nausea and vomiting) Qty: 20 0RF loperamide [Imodium A-D] 2 mg capsule 2 mg PO Q4H PRN (Reason: loose stool) Qty: 20 0RF Rx Instructions: administer after each loose stool until symptoms controlled; do not exceed 8 mg per 24 hrs No Action cephalexin 500 mg capsule 500 mg PO Q12H 5 Days Qty: 10 0RF prednisone 20 mg tablet 40 mg PO DAILY 4 Days Qty: 8 0RF acetaminophen [Tylenol Extra Strength] 500 mg tablet 500 mg PO Q6H PRN (Reason: fever or pain) Qty: 14 0RF lidocaine [Lidoderm] 5 % adhesive patch,medicated 1 patch topical DAILY MDD remove after 12 hours PRN (Reason: pain) Qty: 30 0RF Rx Instructions: leave on most painful area for up to 12 hrs naproxen 500 mg tablet 500 mg PO BID PRN (Reason: pain) 10 Days Qty: 20 0RF cyclobenzaprine 5 mg tablet 5 mg PO Q8H PRN (Reason: pain (scale score 7-10)) 5 Days Qty: 14 0RF <ALIREZA Díaz - Last Filed: 08/10/22 17:34> Stand Alone Forms: Work/School Release <ALIREZA Díaz - Last Filed: 08/10/22 17:34>
[2022-08-10 18:23] LABS: MANUAL DIFF FLAG NO
[2022-08-10 18:41] LABS: Basophils Percent Auto 0.7 % (0-2); Eosinophils Absolute Auto 0.1 X10*3/uL (0.0-0.4); Hematocrit 44.5 % (42.0-52.0); Hemoglobin 15.4 g/dl (14.0-18.0); Imm Gran Abs Auto 0.01 X10*3/uL (0.00-0.03); Imm Gran Pct Auto 0.2 % (0.0-0.4); Lymphocytes Absolute Auto 1.8 X10*3/uL (1.2-4.9); Lymphocytes Percent Auto 41.9 % (20-40); Mean Corpuscular HGB Conc 34.6 g/dl (31.0-36.0); Mean Corpuscular Hemoglobin 30.7 pg (27.0-33.0); Mean Corpuscular Volume 88.8 fL (80.0-98.0); Mean Platelet Volume 10.7 fL (9.4-12.4); Monocytes Absolute Auto 0.6 X10*3/uL (0.1-1.2); Monocytes Percent Auto 13.5 % (2-11); Neutrophils Absolute Auto 1.8 x10*3/uL (2.0-8.3); Neutrophils Percent Auto 40.7 % (45-73); Platelet Count 292 X10*3/uL (160-400); Red Blood Count 5.01 X10*6/uL (4.60-5.80); Red Cell Distribution Width 11.5 % (11.0-16.0); White Blood Count 4.3 X10*3/uL (4.8-10.8)
[2022-08-10] MEDS: Lidocaine HCl Viscous 2 % 15 ML SOLUTION MUCOUS MEM (18:46)
[2022-08-10] MEDS: Magnesium Hydrox/Alum Hydrox 30 ML ORAL.SUSP PO (18:46)
[2022-08-10] MEDS: Ondansetron ODT 4 MG TAB.RAPDIS TRANSLINGU (18:46)
[2022-08-10 19:01] LABS: Alanine Aminotransferase 30 U/L (0-40); Albumin Level 4.9 g/dL (3.5-5.0); Alkaline Phosphatase 72 U/L (39-117); Anion Gap 14 (12-20); Aspartate Amino Transferase 19 U/L (5-37); Bilirubin Direct 0.2 mg/dL (0.0-0.5); Bilirubin Total 0.6 mg/dL (0.0-1.0); Blood Urea Nitrogen 17 mg/dL (9-16); Calcium 9.3 mg/dL (8.4-10.2); Carbon Dioxide 25 mmol/L (22-29); Chloride 105 mmol/L (96-108); Creatinine Clr Calc Pharmacy 114.1; Estimated Glomerular Filt Rate > 60; Glucose Random 87 mg/dL (60-115); Lipase 38 U/L (8-78); Magnesium 2.2 mg/dL (1.6-2.6); Potassium 4.2 mmol/L (3.3-5.1); Sodium 140 mmol/L (135-145); Total Protein 7.4 g/dL (6.5-8.0)
== END 2022-08-10 19:12 | disposition home or self-care (01) ==
PROVIDERS: Physician Assistant; Emergency Provider Emergency Medicine
DX: R10.9 Unspecified abdominal pain (principal); R19.7 Diarrhea, unspecified; Z79.899 Other long term (current) drug therapy
CPT/HCPCS: 36415; 80048; 80076; 83690; 83735; 85025; 99283

== ENCOUNTER 2022-11-23 10:01 | Outpatient (REF) | payer MEDICAID, SELFPAY ==
[2022-11-23 11:58] LABS: MANUAL DIFF FLAG NO
[2022-11-23 12:10] LABS: Basophils Absolute Auto 0.1 X10*3/uL (0.0-0.2); Basophils Percent Auto 1.2 % (0-2); Eosinophils Absolute Auto 0.3 X10*3/uL (0.0-0.4); Eosinophils Percent Auto 7.5 % (0-4); Hematocrit 41.7 % (42.0-52.0); Hemoglobin 14.3 g/dl (14.0-18.0); Imm Gran Abs Auto 0.01 X10*3/uL (0.00-0.03); Imm Gran Pct Auto 0.2 % (0.0-0.4); Lymphocytes Absolute Auto 1.6 X10*3/uL (1.2-4.9); Lymphocytes Percent Auto 37.7 % (20-40); Mean Corpuscular HGB Conc 34.3 g/dl (31.0-36.0); Mean Corpuscular Volume 90.5 fL (80.0-98.0); Monocytes Absolute Auto 0.5 X10*3/uL (0.1-1.2); Neutrophils Absolute Auto 1.7 x10*3/uL (2.0-8.3); Neutrophils Percent Auto 40.4 % (45-73); Platelet Count 269 X10*3/uL (160-400); Red Blood Count 4.61 X10*6/uL (4.60-5.80); Red Cell Distribution Width 11.4 % (11.0-16.0); White Blood Count 4.1 X10*3/uL (4.8-10.8)
[2022-11-23 12:28] LABS: Estimated Average Glucose 77 mg/dL; Hemoglobin A1c % 4.3 %
[2022-11-23 12:45] LABS: Alanine Aminotransferase 30 U/L (0-40); Albumin Level 4.7 g/dL (3.5-5.0); Alkaline Phosphatase 75 U/L (39-117); Anion Gap 14 (12-20); Aspartate Amino Transferase 21 U/L (5-37); Bilirubin Total 0.8 mg/dL (0.0-1.0); Blood Urea Nitrogen 13 mg/dL (9-16); Calcium 9.8 mg/dL (8.4-10.2); Carbon Dioxide 28 mmol/L (22-29); Chloride 104 mmol/L (96-108); Cholesterol 188 mg/dL; Estimated Glomerular Filt Rate > 60; Glucose Random 85 mg/dL (60-115); HDL Cholesterol 28 mg/dL; LDL Cholesterol Calculated 133 mg/dl; Potassium 4.1 mmol/L (3.3-5.1); Sodium 142 mmol/L (135-145); Total Protein 7.4 g/dL (6.5-8.0); Triglycerides 138 mg/dL
[2022-11-23 13:04] LABS: HBS Num1 1.58 mIU/mL (0-7.99); HBc Num1 0.12 S/CO (0.00-0.79); HIV AB/AG Nonreactive (Nonreactive); HIV Num 1 0.04 S/CO (0.00-0.99); Hepatitis B Core Antibody Nonreactive (Nonreactive); Hepatitis B Surface Antigen Negative (Negative); Syphilis Screen Nonreactive (Nonreactive); ~Hepatitis B Surface Antibody NONREACTIVE (Nonreactive)
[2022-11-23 13:10] LABS: ~HepC Num1 0.25 S/CO (0.00-0.79); ~Hepatitis C Antibody Nonreactive (Nonreactive)
[2022-11-28 16:59] LABS: VITAMIN D (1,25 OH) D3 39 pg/mL; Vit D (1,25-Dihydroxy) Total 39 pg/mL (18-72); Vitamin D (1,25 OH) D2 <8 pg/mL
== END 2022-11-23 10:02 | disposition home or self-care (01) ==
LOC: HO.HHCL 10:01
PROVIDERS: Visit Provider Student in an Organized Health Care Education/Training Program
DX: Z00.00 Encounter for general adult medical examination without abnormal findings (principal); Z11.4 Encounter for screening for human immunodeficiency virus [HIV]; Z11.3 Encounter for screening for infections with a predominantly sexual mode of transmission
CPT/HCPCS: 36415; 80053; 80061; 82652; 83036; 84443; 85025; 86704; 86706; 86780; 86803; 87340; 87389

== ENCOUNTER 2022-11-24 11:45 | Outpatient (REF) | payer MEDICAID, SELFPAY ==
[2022-11-24 14:50] LABS: CT PCR NOT DETECTED (Not Detect.); NG PCR NOT DETECTED (Not Detect.)
== END 2022-11-24 11:46 | disposition home or self-care (01) ==
LOC: HO.HHCLNP 11:45
PROVIDERS: Visit Provider Student in an Organized Health Care Education/Training Program
DX: Z00.00 Encounter for general adult medical examination without abnormal findings (principal)
CPT/HCPCS: 0353U

== ENCOUNTER 2023-01-19 20:20 | Emergency (ER) | payer MEDICAID, SELFPAY ==
--- NOTE | ~2023-01-19 | XR_ITS ---
EXAMINATION: XR CHEST CLINICAL INFORMATION: Asthma. COMPARISON: Chest radiographs dated 07/14/2022. TECHNIQUE: Frontal and lateral views of the chest were obtained. FINDINGS: The heart, great vessels, pulmonary vasculature and mediastinum are normal. The lungs show no focal infiltrate, effusion or pneumothorax. There is no acute osseous abnormality. XR/XR chest 2V IMPRESSION: No active cardiopulmonary disease.
[2023-01-19 20:30] VITALS: BP 142/70; PULSE 95; RESP 18; TEMP 37.2; O2SAT 96; BMI 23.7
--- NOTE | 2023-01-19 20:30 | ED.URI ---
HPI - URI/Sore Throat General Chief Complaint: General Medical Stated Complaint: asthma/ runny nose Time Seen by Provider: 01/19/23 21:33 Source: patient Mode of arrival: ambulatory Limitations: no limitations History of Present Illness HPI Narrative: Patient comes to the emergency room complaining of headache, runny nose, asthma exacerbation. Patient states that he ran out of his albuterol for neb treatments. Patient still has albuterol on his pump. Patient complaining of nasal congestion Related Data Previous Rx's Medication Instructions Recorded cephalexin 500 mg capsule 500 mg PO Q12H 5 days #10 caps 11/10/20 prednisone 20 mg tablet 40 mg (2 x 20 mg) PO DAILY 4 days 11/10/20 #8 tabs acetaminophen 500 mg tablet 500 mg PO Q6H PRN fever or pain 07/14/22 (Tylenol Extra Strength) #14 tabs cyclobenzaprine 5 mg tablet 5 mg PO Q8H PRN pain (scale score 07/14/22 7-10) 5 days #14 tabs lidocaine 5 % topical patch 1 patch topical DAILY PRN pain #30 07/14/22 (Lidoderm) ea naproxen 500 mg tablet 500 mg PO BID PRN pain 10 days #20 07/14/22 tabs loperamide 2 mg capsule (Imodium 2 mg PO Q4H PRN loose stool #20 08/10/22 A-D) caps ondansetron 4 mg disintegrating 4 mg PO Q8H PRN nausea and 08/10/22 tablet vomiting #20 tabs albuterol sulfate 2.5 mg/3 mL 2.5 mg (3 mL) inhalation Q4-6H PRN 01/19/23 (0.083 %) solution for nebulization shortness of breath or wheezing #75 mL prednisone 50 mg tablet 50 mg PO DAILY #5 tabs 01/19/23 Allergies Allergy/AdvReac Type Severity Reaction Status Date / Time seafood Allergy Anaphylaxis Verified 11/10/20 04:36 Review of Systems Review of Systems: Constitutional : No Weight loss, No Fever, No Chills, No Night Sweats, No Fatigue, No Malaise ENT/Mouth : No Hearing loss, No Ear Pain, complaining of Nasal Congestion, No Sinus Pain, No Hoarseness, No sore throat, No Rhinorrhea, No Swallowing Difficulty Eyes: No Eye Pain, No Swelling, No Redness, No Foreign Body, No Discharge, No Vision Changes Cardiovascular : No Chest Pain, No SOB, No Dyspnea on Exertion, No Orthopnea, No Edema, No Palpitations Respiratory : Denies cough, complaining of wheezing Gastrointestinal : No Nausea, No Vomiting, No Diarrhea, No Constipation, No abdominal Pain, No Hematochezia, No Melena Genitourinary : no irregular bleeding, No Dysuria, No Urinary Frequency, No Hematuria, No Urinary Incontinence, No Urgency, No Flank Pain, No Urinary Flow Changes, No Hesitancy Musculoskeletal : No joint pain, No Myalgias, No Joint Swelling Skin : No Skin Lesions, No rash Neuro : No Weakness, No Numbness, No Paresthesias, No Loss of Consciousness, No Dizziness, No Headache Psych : No Anxiety/Panic, No Depression, No SI/HI/AH/VH, No Social Issues, Heme/Lymph: No Bruising, No Bleeding,No Lymphadenopathy Endocrine : No Polyuria, No Polydipsia, No Temperature Intolerance PMFSH Past Medical History Medical History Depression Anxiety Asthma Social History Social History Advance Directives: No Advance Directives Information Provided: No Physical Exam Vital Signs: Vital Signs: Last Vital Signs Temp 98.9 F 01/19/23 20:30 Pulse 95 01/19/23 20:30 Resp 18 01/19/23 20:30 BP 142/70 H 01/19/23 20:30 Pulse Ox 96 01/19/23 20:30 O2 Del Method Room Air 01/19/23 20:30 BMI result Body Mass Index 23.7 Const: Other: Appearance: Alert. Oriented X3. No acute distress. Eyes: Pupils equal, round and reactive to light. ENT: Pharynx normal. Seems to be congested, no pain with sinus pressure Neck: Normal inspection. Neck supple. No lymph nodes noted. No crepitus CVS: Normal heart rate and rhythm. Pulses normal. Normal S1 and S2 Respiratory: No respiratory distress. Breath sounds normal. No Wheezing. No rales Abdomen: Soft and nontender. No rigidity. No distention. Skin: Skin warm and dry. Normal skin color. Normal skin turgor. Extremities: No lower extremity edema. No Lacerations. No Rash Neuro: Oriented X 3. No motor deficit. No sensory deficit. Moving all extremities. No slurred speech. CN 2 through 12 grossly intact Psych: calm, cooperative, normal affect Course Course Course Narrative: RME: 32yo M w/PMHx asthma c/o cough, nausea, BRANDON, rhinorrhea, w/ asthma exacerbation x today. Denies SOB at present, fever, chills Lungs CTA Viral testing, CXR, albuterol inhaler ordered Full HPI, ROS and PE to be performed by primary ED provider. Medications Administered Discontinued Medications Generic Name Dose Route Start Last Admin Trade Name Freq PRN Reason Stop Dose Admin Albuterol Sulfate 4 puff 01/19/23 20:33 01/19/23 22:00 Albuterol Sulfate 90 Mcg 8 Gm Inhaler INHALE 01/19/23 20:34 4 puff ONCE ONE Administration Medical Decision Making Medical Decision Making [facility] Narrative: -I discussed the physical exam with the patient, patient likely has a viral URI, patient not wheezing. -interpretation of labs: Negative for COVID and influenza. Lab Data Labs: Lab Results 01/19/23 Range/Units 20:49 COVID-19 (MARIN) Negative (Negative) COVID-19 Clin Com See Note Influenza Type A (JILLIAN) Negative (Negative) Influenza Type B (JILLIAN) Negative (Negative) Influenza A & B Note See Note Discharge Plan Discharge Clinical Impression: Viral URI Patient Disposition: Home, Self-Care Instructions: Viral Syndrome (ED) Additional Instructions: Please follow-up with your primary care physician tomorrow. If you have any worsening or new symptoms, please return to the emergency room or call 911 Prescriptions: New albuterol sulfate 2.5 mg /3 mL (0.083 %) solution for nebulization 2.5 mg inhalation Q4-6H PRN (Reason: shortness of breath or wheezing) Qty: 75 0RF prednisone 50 mg tablet 50 mg PO DAILY Qty: 5 0RF No Action cephalexin 500 mg capsule 500 mg PO Q12H 5 Days Qty: 10 0RF prednisone 20 mg tablet 40 mg PO DAILY 4 Days Qty: 8 0RF acetaminophen [Tylenol Extra Strength] 500 mg tablet 500 mg PO Q6H PRN (Reason: fever or pain) Qty: 14 0RF lidocaine [Lidoderm] 5 % adhesive patch,medicated 1 patch topical DAILY MDD remove after 12 hours PRN (Reason: pain) Qty: 30 0RF Rx Instructions: leave on most painful area for up to 12 hrs naproxen 500 mg tablet 500 mg PO BID PRN (Reason: pain) 10 Days Qty: 20 0RF cyclobenzaprine 5 mg tablet 5 mg PO Q8H PRN (Reason: pain (scale score 7-10)) 5 Days Qty: 14 0RF ondansetron 4 mg tablet,disintegrating 4 mg PO Q8H PRN (Reason: nausea and vomiting) Qty: 20 0RF loperamide [Imodium A-D] 2 mg capsule 2 mg PO Q4H PRN (Reason: loose stool) Qty: 20 0RF Rx Instructions: administer after each loose stool until symptoms controlled; do not exceed 8 mg per 24 hrs
[2023-01-19 21:09] LABS: COVID-19 Test Negative (Negative); IDNOW Serial# 08D9AD1C; IDNOW Serial# BCCEAD1C; Influenza A Negative (Negative); Influenza B2 Negative (Negative)
[2023-01-19] MEDS: Albuterol Sulfate 90 MCG 8 GM INHALER 4 PUFF INHALE (22:00)
--- NOTE | 2023-01-19 22:05 | PC.NURSE ---
pt medicated per MAR.
== END 2023-01-19 22:16 | disposition home or self-care (01) ==
PROVIDERS: Physician Assistant; Emergency Provider Emergency Medicine; PCP Student in an Organized Health Care Education/Training Program
DX: J06.9 Acute upper respiratory infection, unspecified (principal); R51.9 Headache, unspecified; Z20.822 Contact with and (suspected) exposure to COVID-19; J45.909 Unspecified asthma, uncomplicated; Z79.899 Other long term (current) drug therapy
CPT/HCPCS: 71046; 87502; 87635; 99282; 99284

== ENCOUNTER 2023-04-03 10:04 | Emergency (ER) | payer MEDICAID, SELFPAY ==
[2023-04-03 10:09] VITALS: BP 131/78; PULSE 72; RESP 16; TEMP 37.2; O2SAT 97; BMI 24.7
--- NOTE | 2023-04-03 10:52 | PC.NURSE ---
swabbed for flu/covid.
[2023-04-03 11:06] LABS: COVID-19 Test Positive (Negative); IDNOW Serial# 08D9AD1C; IDNOW Serial# BCCEAD1C; Influenza A Negative (Negative); Influenza B2 Negative (Negative)
--- NOTE | 2023-04-03 11:09 | ED.URI ---
HPI - URI/Sore Throat General Chief Complaint: Upper Respiratory Symptoms Stated Complaint: cough running nose fever +covid Time Seen by Provider: 04/03/23 10:17 Source: patient, RN notes reviewed and old records reviewed Mode of arrival: ambulatory History of Present Illness HPI Narrative: 32-year-old male with no significant past medical history presenting to the ED complaining of dry cough, intermittent fevers T-max 103.1 degrees, myalgias, nasal congestion x 3 days. Admits to two home COVID tests which were positive today. Reports overall symptoms have improved since onset. Denies taking any antipyretics today or fever today. Denies sore throat, difficulty/inability to swallow, recent travel, CP/SOB. Related Data Previous Rx's Medication Instructions Recorded cephalexin 500 mg capsule 500 mg PO Q12H 5 days #10 caps 11/10/20 prednisone 20 mg tablet 40 mg (2 x 20 mg) PO DAILY 4 days 11/10/20 #8 tabs acetaminophen 500 mg tablet 500 mg PO Q6H PRN fever or pain 07/14/22 (Tylenol Extra Strength) #14 tabs cyclobenzaprine 5 mg tablet 5 mg PO Q8H PRN pain (scale score 07/14/22 7-10) 5 days #14 tabs lidocaine 5 % topical patch 1 patch topical DAILY PRN pain #30 07/14/22 (Lidoderm) ea naproxen 500 mg tablet 500 mg PO BID PRN pain 10 days #20 07/14/22 tabs loperamide 2 mg capsule (Imodium 2 mg PO Q4H PRN loose stool #20 08/10/22 A-D) caps ondansetron 4 mg disintegrating 4 mg PO Q8H PRN nausea and 08/10/22 tablet vomiting #20 tabs albuterol sulfate 2.5 mg/3 mL 2.5 mg (3 mL) inhalation Q4-6H PRN 01/19/23 (0.083 %) solution for nebulization shortness of breath or wheezing #75 mL prednisone 50 mg tablet 50 mg PO DAILY #5 tabs 01/19/23 Allergies Allergy/AdvReac Type Severity Reaction Status Date / Time seafood Allergy Anaphylaxis Verified 04/03/23 10:09 Review of Systems Review of Systems: Constitutional: +Fever, No Chills ENT/Mouth: No Ear Pain, + Nasal Congestion, No Sinus Pain, No Hoarseness, No sore throat, + Rhinorrhea, No Swallowing Difficulty Cardiovascular: No Chest Pain, No SOB Respiratory: + Cough, No Sputum, No Wheezing Gastrointestinal: No Nausea, No Vomiting, No Diarrhea, No Constipation, No Abdominal pain Musculoskeletal: No joint pain, + Myalgias, No Joint Swelling Skin: No Skin Lesions, No rash Neuro: No Weakness Yes all other systems are reviewed and are negative Constitutional: Constitutional: Reports as per [facility] Past Medical History Attestation statement: The following information was validated with the patient. Source: old records reviewed Medical History Depression Anxiety Asthma Social History Advance Directives: No Advance Directives Information Provided: No Physical Exam Vital Signs: Vital Signs: Last Vital Signs Temp 98.9 F 04/03/23 10:09 Pulse 72 04/03/23 10:09 Resp 16 04/03/23 10:09 BP 131/78 04/03/23 10:09 Pulse Ox 97 04/03/23 10:09 O2 Del Method Room Air 04/03/23 10:09 BMI result Body Mass Index 24.7 Const: General: cooperative, healthy appearing and no acute distress Orientation/consciousness: patient oriented x3 Limitations: no limitations HEENT: Head: Yes normal to inspection and Yes atraumatic Ears: hearing grossly normal bilaterally General nose exam: Normal external nose present Face and sinus: Yes normal facial exam Eyes: General: appearance normal, both eyes and all related structures EOM: EOMs intact bilaterally Neck: Neck: Yes normal visual inspection and Yes no meningeal signs Resp: Effort & Inspection: normal respiratory effort, no respiratory distress, no stridor and not tachypneic Cardio: Rate: regular rate Heart sounds: S1 normal heart sound present and S2 normal heart sound present Skin: Rashes: no rashes Wounds: no wounds Neuro: General: patient oriented x3, tone normal and no meningeal signs Cranial nerves: Yes CN's II-XII intact bilaterally Gait exam (Neuro): Normal gait present Extrem: General: Yes normal to inspection Course Course Course Narrative: -COVID positive Results discussed with patient including worrisome signs and symptoms and strict return precautions, and when to return to the emergency department. They verbalized understanding and feel safe for discharge at this time. Medical Decision Making Medical Decision Making [facility] Narrative: 32-year-old male with no significant past medical history presenting to the ED complaining of dry cough, intermittent fevers T-max 103.1 degrees, myalgias, nasal congestion x 3 days. On exam vital signs stable, NAD, nontoxic appearing, physical exam benign. Concern for viral illness including COVID-19. Lower suspicion for pneumonia, ACS/PE Plan: COVID/flu testing Please refer to course for remaining clinical decision making, interpretation of labs/imaging results, and discussions with consultants and/or family members. Differential Diagnosis Differential Diagnoses: The differential diagnosis associated with the presentation includes As above Lab Data [facility] Lab Attestation statement: I reviewed the patient's lab results. Labs: Lab Results 04/03/23 Range/Units 10:44 COVID-19 (MARIN) Positive A (Negative) COVID-19 Clin Com See Note Influenza Type A (JILLIAN) Negative (Negative) Influenza Type B (JILLIAN) Negative (Negative) Influenza A & B Note See Note External Record Review External record reviewed: Inpatient record, Office record, Outpatient record, Prior outpatient labs, Prior outpatient radiology, Primary care record and Outside ED record Tests considered The following testing was considered but not selected: As above Prescription Management I considered prescription management with: Pain Medication Discharge Plan Discharge Clinical Impression: COVID-19 Patient Disposition: Home, Self-Care Instructions: COVID-19 (Coronavirus Disease 2019) (ED) Additional Instructions: You have COVID-19 At this time you will be okay for discharge. Please self isolate for 5 days. Do not expose yourself to others. You may not go to work or school. Please continue to follow cold instructions and wash your hands frequently. You may take Tylenol / Motrin as directed on the bottle for pain or fever. If you have constant or persistent shortness of breath, fever unresolved with medications, chest pain, or your unable to eat or drink please return to the ED CDC Guidelines for home isolation: - Stay away from others - WEAR A MASK if you are sick AND STAY HOME - Cover your mouth and nose with a tissue when you cough or sneeze. Dispose of tissues in a lined trash can and wash your hands immediately with soap and water for at least 20 seconds. If soap and water are not available, clean hands with alcohol-based hand drying machine operator package yarns that contains at least 60% alcohol. - Clean your hands often with soap and water for at least 20 seconds - Avoid touching your eyes, nose and mouth with unwashed hands - Do not share dishes, drinking glasses, cups, eating utensils, towels, or bedding with other people in your home. After using these items, wash them thoroughly with soap and water or put in the board certified arts therapist. - Clean high-touch surfaces in your isolation area ( sick room and bathroom) every day; let a caregiver clean and disinfect high-touch surfaces in other areas of the home. Clean the area or item with soap and water or another detergent if it is dirty. Then, use a household disinfectant. - Limit contact with pets and animals: If you must care for a pet, wash your hands before and after interacting with them) Prescriptions: No Action cephalexin 500 mg capsule 500 mg PO Q12H 5 Days Qty: 10 0RF prednisone 20 mg tablet 40 mg PO DAILY 4 Days Qty: 8 0RF acetaminophen [Tylenol Extra Strength] 500 mg tablet 500 mg PO Q6H PRN (Reason: fever or pain) Qty: 14 0RF lidocaine [Lidoderm] 5 % adhesive patch,medicated 1 patch topical DAILY MDD remove after 12 hours PRN (Reason: pain) Qty: 30 0RF Rx Instructions: leave on most painful area for up to 12 hrs naproxen 500 mg tablet 500 mg PO BID PRN (Reason: pain) 10 Days Qty: 20 0RF cyclobenzaprine 5 mg tablet 5 mg PO Q8H PRN (Reason: pain (scale score 7-10)) 5 Days Qty: 14 0RF ondansetron 4 mg tablet,disintegrating 4 mg PO Q8H PRN (Reason: nausea and vomiting) Qty: 20 0RF loperamide [Imodium A-D] 2 mg capsule 2 mg PO Q4H PRN (Reason: loose stool) Qty: 20 0RF Rx Instructions: administer after each loose stool until symptoms controlled; do not exceed 8 mg per 24 hrs albuterol sulfate 2.5 mg /3 mL (0.083 %) solution for nebulization 2.5 mg inhalation Q4-6H PRN (Reason: shortness of breath or wheezing) Qty: 75 0RF prednisone 50 mg tablet 50 mg PO DAILY Qty: 5 0RF Referrals: Martina Chowdhury MD [Primary Care Provider] - 1 week Stand Alone Forms: Work/School Release Interventions: ED Discharge Assessment Last Done: 04/03/23 11:42 Discharge Date/Time: 04/03/23 11:43
== END 2023-04-03 11:43 | disposition home or self-care (01) ==
PROVIDERS: Physician Assistant; Emergency Provider Emergency Medicine; PCP Student in an Organized Health Care Education/Training Program
DX: U07.1 COVID-19 (principal)
CPT/HCPCS: 87502; 87635; 99282; 99283

== ENCOUNTER 2023-05-07 11:03 | Outpatient (REF) | payer MEDICAID, SELFPAY ==
[2023-05-07 11:34] LABS: MANUAL DIFF FLAG NO
[2023-05-07 11:36] LABS: Basophils Absolute Auto 0.1 X10*3/uL (0.0-0.2); Basophils Percent Auto 1.6 % (0-2); Eosinophils Absolute Auto 0.2 X10*3/uL (0.0-0.4); Eosinophils Percent Auto 4.1 % (0-4); Hematocrit 43.4 % (42.0-52.0); Hemoglobin 14.6 g/dl (14.0-18.0); Imm Gran Abs Auto 0.01 X10*3/uL (0.00-0.03); Imm Gran Pct Auto 0.2 % (0.0-0.4); Lymphocytes Percent Auto 38.9 % (20-40); Mean Corpuscular HGB Conc 33.6 g/dl (31.0-36.0); Mean Corpuscular Hemoglobin 31.1 pg (27.0-33.0); Mean Corpuscular Volume 92.5 fL (80.0-98.0); Mean Platelet Volume 10.6 fL (9.4-12.4); Monocytes Absolute Auto 0.5 X10*3/uL (0.1-1.2); Monocytes Percent Auto 10.5 % (2-11); Neutrophils Absolute Auto 2.3 x10*3/uL (2.0-8.3); Neutrophils Percent Auto 44.7 % (45-73); Platelet Count 248 X10*3/uL (160-400); Red Blood Count 4.69 X10*6/uL (4.60-5.80); Red Cell Distribution Width 11.7 % (11.0-16.0); White Blood Count 5.1 X10*3/uL (4.8-10.8)
== END 2023-05-07 11:04 | disposition home or self-care (01) ==
LOC: HO.HHCL 11:03
PROVIDERS: Visit Provider Student in an Organized Health Care Education/Training Program
DX: D72.819 Decreased white blood cell count, unspecified (principal)
CPT/HCPCS: 36415; 85025

== ENCOUNTER 2023-07-16 08:14 | Outpatient (REF) | payer MEDICAID, SELFPAY | END 2023-07-16 08:15 | disposition home or self-care (01) | LOC: HO.SH 08:14 | PROVIDERS: Visit Provider Student in an Organized Health Care Education/Training Program | DX: Z01.118 Encounter for examination of ears and hearing with other abnormal findings (principal); H91.93 Unspecified hearing loss, bilateral | CPT/HCPCS: 92557; 92567 ==

== ENCOUNTER 2023-12-10 00:17 | Emergency (ER) | payer MEDICAID, SELFPAY ==
--- NOTE | 2023-12-10 | ECG_ITS ---
Test Reason : heart racing Blood Pressure : / mmHG Vent. Rate : 090 BPM Atrial Rate : 090 BPM P-R Int : 134 ms QRS Dur : 080 ms QT Int : 346 ms P-R-T Axes : 064 057 050 degrees QTc Int : 423 ms Normal sinus rhythm Normal ECG When compared with ECG of 09-NOV-2019 10:58, No significant change was found Referred By: Generic ED Physician Electronically Signed By:Nic Gaytan
[2023-12-10 00:20] VITALS: BP 128/92; PULSE 93; RESP 19; TEMP 36.9; O2SAT 98; BMI 24.5
[2023-12-10 00:35] LABS: MANUAL DIFF FLAG NO
[2023-12-10 00:41] LABS: Basophils Absolute Auto 0.1 X10*3/uL (0.0-0.2); Basophils Percent Auto 1.2 % (0-2); Eosinophils Absolute Auto 0.3 X10*3/uL (0.0-0.4); Eosinophils Percent Auto 3.5 % (0-4); Hematocrit 44.5 % (42.0-52.0); Hemoglobin 15.8 g/dl (14.0-18.0); Imm Gran Abs Auto 0.01 X10*3/uL (0.00-0.03); Imm Gran Pct Auto 0.1 % (0.0-0.4); Lymphocytes Absolute Auto 3.8 X10*3/uL (1.2-4.9); Lymphocytes Percent Auto 41.3 % (20-40); Mean Corpuscular HGB Conc 35.5 g/dl (31.0-36.0); Mean Corpuscular Hemoglobin 31.3 pg (27.0-33.0); Mean Corpuscular Volume 88.1 fL (80.0-98.0); Mean Platelet Volume 10.1 fL (9.4-12.4); Monocytes Absolute Auto 1.2 X10*3/uL (0.1-1.2); Monocytes Percent Auto 12.8 % (2-11); Neutrophils Absolute Auto 3.7 x10*3/uL (2.0-8.3); Neutrophils Percent Auto 41.1 % (45-73); Platelet Count 304 X10*3/uL (160-400); Red Blood Count 5.05 X10*6/uL (4.60-5.80); Red Cell Distribution Width 11.4 % (11.0-16.0); White Blood Count 9.1 X10*3/uL (4.8-10.8)
[2023-12-10 00:50] LABS: Alanine Aminotransferase 48 U/L (0-40); Albumin Level 5.2 g/dL (3.5-5.0); Alkaline Phosphatase 91 U/L (39-117); Anion Gap 15 (12-20); Aspartate Amino Transferase 25 U/L (5-37); Bilirubin Total 0.4 mg/dL (0.0-1.0); Blood Urea Nitrogen 18 mg/dL (9-16); Calcium 10.2 mg/dL (8.4-10.2); Carbon Dioxide 26 mmol/L (22-29); Chloride 103 mmol/L (96-108); Estimated Glomerular Filt Rate > 60; Glucose Random 81 mg/dL (60-115); Potassium 3.6 mmol/L (3.3-5.1); Sodium 140 mmol/L (135-145); Total Protein 8.4 g/dL (6.5-8.0)
--- NOTE | 2023-12-10 01:19 | ED_ITS ---
HPI - Anxiety General Chief Complaint: Anxiety Stated Complaint: fast heart rate, bp high, anxiety, no meds Time Seen by Provider: 12/10/23 01:08 Source: patient and old records reviewed Mode of arrival: ambulatory Limitations: no limitations History of Present Illness ED Provider: EDGARD HERNANDEZ narrative: 33 yo male with PMH of anxiety ran out of hydroxyzine tonight 50mg here with anxiety and feels his heart racing. No SI/HI. Just wants his pill. Is going to call his doctor in AM complaint: anxiety Onset (ago): hour(s) (few) Symptoms: palpitations Severity: moderate Quality: intermittent Place: home History of similar episodes: Yes Provoking factors: other Relieving factors: nothing Exacerbating factors: nothing Associated symptoms: denies other symptoms Related Data Previous Rx's ?Medication ?Instructions ?Recorded cephalexin 500 mg capsule 500 mg PO Q12H 5 days #10 caps 11/10/20 prednisone 20 mg tablet 40 mg (2 x 20 mg) PO DAILY 4 days 11/10/20 #8 tabs acetaminophen 500 mg tablet 500 mg PO Q6H PRN fever or pain 07/14/22 (Tylenol Extra Strength) #14 tabs cyclobenzaprine 5 mg tablet 5 mg PO Q8H PRN pain (scale score 07/14/22 7-10) 5 days #14 tabs lidocaine 5 % topical patch 1 patch topical DAILY PRN pain #30 07/14/22 (Lidoderm) ea naproxen 500 mg tablet 500 mg PO BID PRN pain 10 days #20 07/14/22 tabs loperamide 2 mg capsule (Imodium 2 mg PO Q4H PRN loose stool #20 08/10/22 A-D) caps ondansetron 4 mg disintegrating 4 mg PO Q8H PRN nausea and 08/10/22 tablet vomiting #20 tabs albuterol sulfate 2.5 mg/3 mL 2.5 mg (3 mL) inhalation Q4-6H PRN 01/19/23 (0.083 %) solution for nebulization shortness of breath or wheezing #75 mL prednisone 50 mg tablet 50 mg PO DAILY #5 tabs 01/19/23 Allergies Allergy/AdvReac Type Severity Reaction Status Date / Time seafood Allergy Anaphylaxis Verified 12/10/23 00:21 Review of Systems 2 Review of Systems: Constitutional : No Fever, No Chills ENT/Mouth : No Ear Pain, No Nasal Congestion, No sore throat Eyes: No Eye Pain, No Swelling, No Redness Cardiovascular : No Chest Pain, No SOB Respiratory : No Cough, No Sputum, No Dyspnea Gastrointestinal : No Nausea, No Vomiting, No Diarrhea, No Hematochezia, No Melena Genitourinary : No Dysuria, No Urinary Frequency, No Hematuria Musculoskeletal : No Myalgias Skin : No Skin Lesions, No rash Neuro : No Weakness, No Numbness, No Paresthesias, No Dizziness, No Headache Psych : positive Anxiety, no Depression, no SI/HI All other systems reviewed and are negative [facility] Past Medical History Attestation statement: The following information was validated with the patient. Source: old records reviewed Medical History Depression Anxiety Asthma Social History Social History (Updated 12/10/23 @ 01:31 by Patrizia Longoria DO) Patient Tobacco Use Status: Tobacco use Unknown Advance Directives: No Advance Directives Information Provided: Yes Do you have a plan to hurt others: No Plan Physical Exam 2 Vital Signs: Vital Signs: Last Vital Signs Temp 98.4 F 12/10/23 01:28 Pulse 93 12/10/23 01:28 Resp 19 12/10/23 01:28 BP 128/92 H 12/10/23 01:28 Pulse Ox 98 12/10/23 01:28 O2 Del Method Room Air 12/10/23 00:20 BMI result Body Mass Index 24.5 Appearance: Alert. Oriented X3. No acute distress. Eyes: Pupils equal, round and reactive to light. ENT: Pharynx normal. Neck: Normal inspection. Neck supple. CVS: Normal heart rate and rhythm. Pulses normal. Respiratory: No respiratory distress. Breath sounds normal. Abdomen: Soft and nontender. Skin: Skin warm and dry. Normal skin color. Normal skin turgor. Extremities: No lower extremity edema. No calf ttp Neuro: Oriented X 3. No motor deficit. No sensory deficit. Medications Administered Discontinued Medications Generic Name Dose Route Start Last Admin Trade Name Freq PRN Reason Stop Dose Admin Hydroxyzine HCl 50 mg 12/10/23 01:11 12/10/23 01:27 Hydroxyzine Hcl 50 Mg Tablet PO 12/10/23 01:12 50 mg ONCE ONE Administration Medical Decision Making Medical Decision Making [facility] Narrative: 33 yo male with chronic anxiety here with c/o needing his hydroxyzine he denies SI/HI at this time will dose with hydroxyzine - doubt ACS or VTE has had these symptoms multiple times. He is not toxic. Can call PCP in AM Differential Diagnosis Differential Diagnoses: The differential diagnosis associated with the presentation includes anxiety, lack of meds Lab Data [facility] Lab Attestation statement: I reviewed the patient's lab results. 12/10/23 00:31 12/10/23 00:31 Labs: Lab Results 12/10/23 Range/Units 00:31 WBC 9.1 (4.8-10.8) X10*3/uL RBC 5.05 (4.60-5.80) X10*6/uL Hgb 15.8 (14.0-18.0) g/dl Hct 44.5 (42.0-52.0) % MCV 88.1 (80.0-98.0) fL MCH 31.3 (27.0-33.0) pg MCHC 35.5 (31.0-36.0) g/dl RDW 11.4 (11.0-16.0) % Plt Count 304 (160-400) X10*3/uL MPV 10.1 (9.4-12.4) fL Immature Gran % (Auto) 0.1 (0.0-0.4) % Neut % (Auto) 41.1 L (45-73) % Lymph % (Auto) 41.3 H (20-40) % Wilkinson % (Auto) 12.8 H (2-11) % Eos % (Auto) 3.5 (0-4) % Baso % (Auto) 1.2 (0-2) % Lymph # (Auto) 3.8 (1.2-4.9) X10*3/uL Wilkinson # (Auto) 1.2 (0.1-1.2) X10*3/uL Eos # (Auto) 0.3 (0.0-0.4) X10*3/uL Baso # (Auto) 0.1 (0.0-0.2) X10*3/uL Abs Immat Gran (auto) 0.01 (0.00-0.03) X10*3/uL Absolute Neuts (auto) 3.7 (2.0-8.3) x10*3/uL Absolute Nucleated RBC 0.000 (0.0-0.012) X10*3/uL Nucleated RBC % (auto) 0.0 (0.0-0.2) /100WBC Sodium 140 (135-145) mmol/L Potassium 3.6 (3.3-5.1) mmol/L Chloride 103 (96-108) mmol/L Carbon Dioxide 26 (22-29) mmol/L Anion Gap 15 (12-20) BUN 18 H (9-16) mg/dL Creatinine 1.18 (0.5-1.4) mg/dL Estim Creat Clear Calc 93.0 Estimated GFR > 60 Random Glucose 81 (60-115) mg/dL Calcium 10.2 (8.4-10.2) mg/dL Total Bilirubin 0.4 (0.0-1.0) mg/dL AST 25 (5-37) U/L ALT 48 H (0-40) U/L Alkaline Phosphatase 91 (39-117) U/L Total Protein 8.4 H (6.5-8.0) g/dL Albumin 5.2 H (3.5-5.0) g/dL Independent Interpretation I performed an independent interpretation of an: EKG Interpretation: Rate: 90 Rhythm: NSR [place]: normal Normal P waves. Normal ISSA. Normal QRS complex. ST T wave : normal no ASHLEY qTC: 423 prior studies: no acute ischemia The study has been interpreted contemporaneously by me. . External Record Review External record reviewed: Inpatient record Prescription Management I considered prescription management with: Other Discharge Plan Discharge Clinical Impression: Acute anxiety Patient Disposition: Home, Self-Care Instructions: Anxiety (ED) Additional Instructions: follow up with doctor tomorrow return for any worsening symptoms or concerns. Prescriptions: No Action cephalexin 500 mg capsule 500 mg PO Q12H 5 Days Qty: 10 0RF prednisone 20 mg tablet 40 mg PO DAILY 4 Days Qty: 8 0RF acetaminophen [Tylenol Extra Strength] 500 mg tablet 500 mg PO Q6H PRN (Reason: fever or pain) Qty: 14 0RF lidocaine [Lidoderm] 5 % adhesive patch,medicated 1 patch topical DAILY MDD remove after 12 hours PRN (Reason: pain) Qty: 30 0RF Rx Instructions: leave on most painful area for up to 12 hrs naproxen 500 mg tablet 500 mg PO BID PRN (Reason: pain) 10 Days Qty: 20 0RF cyclobenzaprine 5 mg tablet 5 mg PO Q8H PRN (Reason: pain (scale score 7-10)) 5 Days Qty: 14 0RF ondansetron 4 mg tablet,disintegrating 4 mg PO Q8H PRN (Reason: nausea and vomiting) Qty: 20 0RF loperamide [Imodium A-D] 2 mg capsule 2 mg PO Q4H PRN (Reason: loose stool) Qty: 20 0RF Rx Instructions: administer after each loose stool until symptoms controlled; do not exceed 8 mg per 24 hrs albuterol sulfate 2.5 mg /3 mL (0.083 %) solution for nebulization 2.5 mg inhalation Q4-6H PRN (Reason: shortness of breath or wheezing) Qty: 75 0RF prednisone 50 mg tablet 50 mg PO DAILY Qty: 5 0RF Interventions: ED Discharge Assessment Last Done: 12/10/23 01:28 Discharge Date/Time: 12/10/23 01:29 Print Language: Mohawk
[2023-12-10] MEDS: hydrOXYzine HCL 50 MG TABLET PO (01:27)
[2023-12-10 01:28] VITALS: BP 128/92; PULSE 93; RESP 19; TEMP 36.9; O2SAT 98
== END 2023-12-10 01:29 | disposition home or self-care (01) ==
PROVIDERS: Emergency Provider Emergency Medicine; PCP Student in an Organized Health Care Education/Training Program
DX: F41.9 Anxiety disorder, unspecified (principal); J45.909 Unspecified asthma, uncomplicated; Z79.899 Other long term (current) drug therapy
CPT/HCPCS: 36415; 80053; 85025; 93005; 99283

== ENCOUNTER → 2023-12-10 00:22 | Outpatient (BNV) | payer MEDICAID, SELFPAY | PROVIDERS: Emergency Provider Emergency Medicine; PCP Student in an Organized Health Care Education/Training Program; Visit Provider Internal Medicine Cardiovascular Disease | DX: R00.2 Palpitations (principal) | CPT/HCPCS: 93010 ==

== ENCOUNTER 2024-08-08 10:41 | Outpatient (REF) | payer MEDICAID, SELFPAY ==
[2024-08-08 11:35] LABS: Hematocrit 40.8 % (42.0-52.0); Hemoglobin 14.3 g/dl (14.0-18.0); Mean Corpuscular Volume 88.5 fL (80.0-98.0); Mean Platelet Volume 10.6 fL (9.4-12.4); Platelet Count 276 X10*3/uL (160-400); Red Blood Count 4.61 X10*6/uL (4.60-5.80); Red Cell Distribution Width 11.8 % (11.0-16.0); White Blood Count 5.1 X10*3/uL (4.8-10.8)
[2024-08-08 11:44] LABS: Estimated Average Glucose 88 mg/dL; Hemoglobin A1C 103.4044 umol/L; Hemoglobin A1c % 4.7 % (<6.0); Total Hemoglobin (HGBA1C) 3730.8969 umol/L
[2024-08-08 11:59] LABS: Alanine Aminotransferase 60 U/L (0-40); Albumin Level 4.5 g/dL (3.5-5.0); Alkaline Phosphatase 72 U/L (39-117); Anion Gap 7 (12-20); Aspartate Amino Transferase 27 U/L (5-37); Bilirubin Total 0.9 mg/dL (0.0-1.0); Blood Urea Nitrogen 14 mg/dL (9-16); Calcium 9.2 mg/dL (8.4-10.2); Carbon Dioxide 29 mmol/L (22-29); Chloride 108 mmol/L (96-108); Cholesterol 189 mg/dL (<200); Estimated Glomerular Filt Rate > 60; Glucose Random 93 mg/dL (60-115); HDL Cholesterol 26 mg/dL (>40); LDL Cholesterol Calculated 134 mg/dL (<100); Potassium 3.9 mmol/L (3.3-5.1); Sodium 140 mmol/L (135-145); Total Protein 7.2 g/dL (6.5-8.0); Triglycerides 145 mg/dL (<150)
[2024-08-08 12:13] LABS: TSH reflex Free T4 1.84 uIU/mL (0.32-4.0)
[2024-08-08 12:18] LABS: HBS Num1 71.82 mIU/mL (0-7.99); HBc Num1 0.05 S/CO (0.00-0.79); HBsAGNum1 0.32 S/CO (0.00-0.99); HIV AB/AG Nonreactive (Nonreactive); HIV Num 1 0.05 S/CO (0.00-0.99); Hepatitis B Core Antibody Nonreactive (Nonreactive); Hepatitis B Surface Antigen Negative (Negative); ~HepC Num1 0.07 S/CO (0.00-0.79); ~Hepatitis B Surface Antibody REACTIVE (Nonreactive); ~Hepatitis C Antibody Nonreactive (Nonreactive)
[2024-08-08 12:19] LABS: Syphilis Screen Nonreactive (Nonreactive)
--- OUTSIDE RECORDS SUMMARY | 2024-08-08 12:49 | XMS_ITS | Encounter Summary ---
Author Organization [employer] Address [address] [place] [address] Care Team Providers Care [employer]icon[employer] Packages Tester Name Role Phone Martina Chowdhury MD Primary Care Pro vider Reason for Visit * Reason Comments Pre-visit Planning SDOH Screening negat pilar and Tobacco screening positive Encounter Details Date Type Department Care Team ([facility] st Contact Info) Description 08/04/2024 Patient Outreach [facility] [address], [place] [phone] Martina Chowdhury MD [address] [place] [phone] Pre-visit Planning (SDOH Screening negative and Tobacco screening positive) Social History Tobacco Use Types Packs/Day Years Used Date Smoking Tobacco: Every Day Cigarettes Passive Smoke Exposure: Current Smokeless Tobacco: Never Comments:Started smoking sin ce 16 years until now -no daily use ---1PQT a week - aprox 2-3 cigarettes a day- not smoked x 3 years -so far smoking 14 years / PQT year calc 2.1 Alcohol Use Standard Drinks/Week Comments Not Currently 0 (1 standard drink = 0.6 oz pur e alcohol) social Depression Answer Date Recorded Patient Health Questionnaire-9 Score 7 07/17/2024 Patient Health Questionnaire-9 Score 7 07/17/2024 Last PHQ-9: Questionnaire Data Not on file 0 07/17/2024 Housing Stability Answer Date Recorded What is your housing situation today? I have adrian potter 01/17/[address] you li ve. Do you have problems with any of the following? None of the above 01/17/2024 Food Insecurity Answer Date Recorded Within the past 12 months, y ou worried that your food would run out before you got money to buy more: Never True 01/17/2024 Within the past 12 months,th e food you bought just didn't last and you didn't have enough money to get more: Never True 01/2024 Transportation Answer Date Recorded In the past 12 months, has l ack of transportation kept you from medical appts, meetings, work or from getting things needed for daily living? No 01/17/2024 Utilities Answer Date Recorded In the past 12 months, has t he electric, gas, oil or water company threatened to shut off services in your home? No 01/17/2024 Depression Answer Date Recorded Patient Health Questionnaire-2 Score 3 07/17/2024 Internet Access Answer Date Recorded Internet Access Q1 Yes 01/17/2024 Internet Access Q2 Not on file 01/17/2024 Sex and Gender Information Value Date Recorded Sex Assigned at Male 03/09/2022 10:36 AM EDT Legal Sex Male 10:36 AM EDT Gender Identity Male 03/09/2022 10:36 AM EDT Sexual Orientation Straight 03/09/2022 10 :36 AM EDT documented as of this encounter Progress Notes * Kerrie Gonzalez - 08/04/2024 10:28 AM EDT KING Coulter placed successful outbound call to patient for pre-visit planning. Patient name and confirmed. Patient confirms appt date and time, and has transportation arrangements. Biggest concern for appointment at this time is no concerns. Patient advised to bring to appointment a photo id and insurance card. Appropriate screenings completed in anticipation of appointment. Tobacco screening positive. Will need counseling. documented in this encounter Plan of Treatment Upcoming Encounters Date Type Department Care Team (Late st Contact Info) Description 08/15/2024 11:15 AM EDT Office Visit [facility] [address], [place] [phone] Martina Chowdhury MD [address], [place] [phone] documented as of this encounter Goals Goal Patient Goal Type Associated Problems Recent Progress Patient-Stated? Author Smoking cessation General No Federico Dow Note: Utilize NRT to achieve smoking cessation. documented as of this encounter Visit Diagnoses Not on filedocumented in this encounter Additional Health Concerns Assessment Noted Time PHQ-9 Depression Total Score: 7 07/18/19 25 1:53 PM EDT documented as of this encounter Care Teams [employer] Tester Relationship Specialty Start Date End Date Martina Chowdhury MD [address] [place] [phone] PCP - General Internal Medicine 08/25/22 documented as of this encounter
--- OUTSIDE RECORDS SUMMARY | 2024-08-08 12:50 | XMS_ITS | Data Portability ---
Author Organization [place] - [facility], Allergy Address [address] [address] Care Team Providers Care Change Management Lead Name Role Phone KELSIE ELIAS Primary Care Provider Assessment Encounter Date Assessment Date Assessment LastModified by Organization Details LastModified Time 12/24/2023 12/24/2023 33-year-old male presents for evaluation of hearing loss and tinnitus. Updated audiometric testing was obtained today showing sensorineural hearing loss bilaterally which is indeed worse on the left than in the right. His hearing loss is high-frequency in nature. He would not be a candidate for amplification. This is certainly the cause of his tinnitus however. Tinnitus masking techniques and pathophysiology were discussed in detail. Given the asymmetry I would recommend an MRI of the IAC to rule out retrocochlear pathology. He will follow-up after MRI for review and further planning if necessary. All questions were answered. veronica Not available 12/24/2023 11:34:50 02/29/2024 02/29/2024 33-year-old male presents for MRI review. MRI negative for retrocochlear pathology. Recommended continued tinnitus masking techniques and hearing protection in loud environment. Follow-up audiogram scheduled for 6 months from now. Call for sooner evaluation with hearing loss or worsening tinnitus. All questions answered. [email or web address] Not available 02/29/2024 13:50:11 Plan of Treatment Reminders Order Date Submit Date Provider Last Modified By Organization Details Last Modified Time Details Appointments Hearing Test 2024 01:00P M Hearing Test Not available Not available Not available Establish ed 15 2024 01:30P M MATT FRANCISCO PA-C Not available Not available Not available Lab None recorded. Referral None recorded. Procedures None recorded. Surgeries None recorded. Imaging MRI, internal auditory canal, w/wo contrast 2023 024 [facility] ([facility]), [address], [place], [address], 02/02/2024 10:50:15 Medication Orders None recorded. Patient TargetsNo targets recorded. Patient InstructionsNo instructions recorded. Reason for Referral None Reported. Results Created Date Observation Date Name Description Value Unit Range Abnormal Flag Note LastModifiedBy Organization Detail LastModifiedTime 12/27/19 audio gram No observ ation record ed. BARCODE Not Available 2023 14:05:54 02/08/2002/05/2024 [facility] Access ion Number : [id number] Juan neal Name: Yash Solis Record Number : [id number] Date of : 1990 Date of Exam: 2023 Referr ing Physic daniel: Matt Pabon [facility] [address], [address] [facility], [place] [address] Exam: MR Brain (C-/C+ ) CPT 86348 [facility] ([facility]-/C+ ) CPT 32512 INDICA TION / CLINIC AL QUESTI ON: Asymme trical sensor ineura l hearin g loss. Per techno logist interv iew: Juan ángel report s left-s ided hearin g loss. TECHNI QUE: Multip lanar, multis equenc e MRI of the brain was perfor med with and withou t intrav enous contra st. 17 mL Dotare m intrav enous contra st was admini stered . COMPAR NERY: None. FINDIN GS: IAC: There is no mass or abnorm al enhanc ement in the international coordinator al audito ry canals or cerebe llopon oscar angles . Course and calibe r of the 7th and 8th crania l nerves is normal bilate rally. Fluid signal is preser philip in the inner ear struct ures bilate rally. Brains tem demons trates normal signal . BRAIN and EXTRA- AXIAL SPACES : No signif icant abnorm ality of the visual ized portio ns of the brain and extra- axial spaces . EXTRAC RANIAL SOFT TISSUE S: Visual ized portio ns of the extrac ranial soft tissue s are unrema rkable . BONES: Visual ized marrow signal is preser philip. IMPRES DAYNE: No retroc ochlea r abnorm ality to explai n the patien t?s sympto ms. Electr onical ly Signed By: Clair Contreras MD [email or web address] [facility] ([facility]) [address], [place], [address], 02/09/2024 12:48:33 02/08/2002/05/2024 MRI, inter nal audit ory canal , w/wo contr ast No observ ation record ed. [email or web address] [facility] [address], [place], [address], 02/09/2024 12:48:43 02/10/20 24 02/05/2024 MRI, brain + brain stem, w/wo contr [facility] Access ion Number : [id number] Juan neal Name: Yash Solis Record Number : [id number] Date of : 1990 Date of Exam: 2023 Referr ing Physic daniel: Matt Pabon [facility] d [address], [address] [facility], [facility] [place] [address] Exam: MR Brain (C-/C+ ) CPT 16869 Room Descri ption: [facility] 3.0T MR Brain (C-/C+ ) CPT 07468 INDICA TION / CLINIC AL QUESTI ON: Asymme trical sensor ineura l hearin g loss. Per techno logist interv iew: Patien t report s left-s ided hearin g loss. TECHNI QUE: Multip lanar, multis equenc e MRI of the brain was perfor med with and withou t intrav enous contra st. 17 mL Dotare m intrav enous contra st was admini stered . COMPAR NERY: None. FINDIN GS: IAC: There is no mass or abnorm al enhanc ement in the international coordinator al audito ry canals or cerebe llopon oscar angles . Course and calibe r of the 7th and 8th crania l nerves is normal bilate rally. Fluid signal is preser philip in the inner ear struct ures bilate rally. Brains tem demons trates normal signal . BRAIN and EXTRA- AXIAL SPACES : No signif icant abnorm ality of the visual ized portio ns of the brain and extra- axial spaces . EXTRAC RANIAL SOFT TISSUE S: Visual ized portio ns of the extrac ranial soft tissue s are unrema rkable . BONES: Visual ized marrow signal is preser philip. IMPRES DAYNE: No retroc ochlea r abnorm ality to explai n the patien t?s sympto ms. Electr onical ly Signed By: Clair Contreras MD [address] [facility] ([facility]) [address], [place], [address], 02/11/2024 08:49:50 Result Notes None recorded. Problems Name Problem SNOMED Code Status Onset Date Resolution Date Notes Provider Name and Address Organization Details Recorded Time Asymmetrical sensorineural hearing loss 998424741 Active 2023 Safia velarde [place] - [facility] 10:36:52 Problem Notes None recorded. Procedures Surgical History Date Name Laterality Status Provider Name and Address Organization Details Recorded Time 12/24/2023 Comp Audio with Tymps (55239 & 38695) completed Safia Villalobos [place] - [facility] 12/24/2023 10:36:35 Imaging Results Imaging Date Name Status LastModified by Organiz ation Details LastModified Time 12/27/2023 audiogram completed BARCODE Information no t available 12/27/2023 14:05:54 02/05/2024 MRI, brain + brain stem, w/wo contrast completed [address] [facility] ([facility]) [address], [place], [address], 02/09/2024 12:48:33 02/05/2024 MRI, internal auditory canal, w/wo contrast completed [address] [facility] [address], [place], [address], 02/09/2024 12:48:43 02/05/2024 MRI, brain + brain stem, w/wo contrast completed [address] [facility] ([facility]) [address], [place], [address], 02/11/2024 08:49:50 Procedure Notes None recorded. Medical Equipment None Reported. Allergies Allergen ID Allergen Name Allergen Category Reaction Reaction Severity Criticality Documentation Date Start Date Code Code System Note Provider Name and Address Organization Details Recorded Time 021356 shellfish derived food,medi cation Not available Not available Not available 12/24/2023 [id number] ZOFIA velarde [place] - [facility] 10:10:37 Medications Name Sig Start Date Stop Date Status Note LastModified by Organization Details LastModified Time quetiapine 25 mg tablet TAKE 1 TABLET BY MOUTH AT BEDTIME 12/23 completed Not Available Not Available Not Available cetirizine 10 mg tablet TAKE 1 TABLET BY MOUTH EVERY DAY 12/23 completed Not Available Not Available Not Available doxepin 25 mg capsule TAKE 1 CAPSULE BY MOUTH EVERY DAY AT BEDTIME 12/23 completed Not Available Not Available Not Available meloxicam 15 mg tablet TAKE 1 TABLET BY MOUTH EVERY DAY IN THE MORNING FOR 10 DAYS 12/23 completed Not Available Not Available Not Available hydroxyzine pamoate 50 mg capsule TAKE 1 CAPSULE BY MOUTH EVERY DAY AT BEDTIME NEEDED FOR ANXIETY active Not Available Not Available No t Available Deep Sea Nasal 0.65 % spray aerosol INSTILL 1 SPRAY IN EACH NOSTRIL NEEDED FOR NASAL CONGESTIO N active Not Available Not Available No t Available fluoxetine 20 mg capsule TAKE 1 CAPSULE BY MOUTH EVERY MORNING 12/23 completed Not Available Not Available Not Available Ventolin HFA 90 mcg/actuati on aerosol inhaler INHALE 2 PUFFS BY MOUTH EVERY 4 HOURS NEEDED FOR WHEEZING OR SHORTNESS OF BREATH active Not Available Not Available No t Available nicotine (polacrilex ) 2 mg buccal lozenge Dissolve 1 lozenge slowly in mouth every 1-2 hours for 6 weeks, then 1 lozenge every 2-4 hours for 3 weeks, then 1 lozenge every 4-8 hours for 2 weeks DO NOT EXCEED 20 / DAY active Not Available Not Available No t Available duloxetine 30 mg capsule,del ayed release TAKE 1 CAPSULE BY MOUTH EVERY DAY 12/23 completed Not Available Not Available Not Available diclofenac 1 % topical gel APPLY 2 GRAMS TOPICALLY TO AFFECTED AREA(S) EVERY DAY IN THE MORNING 12/23 completed Not Available Not Available Not Available Vitals Date Recorded Body height Body mass index (BMI) Body weight Provider Name and Address Organization Details Last Updated DateTime 12/24/2023 180.34 cm 24.8 kg/m2 56608.44 g Rhiannon Osei [place] - [facility] 12/24/2023 11:10:29 Social History None recorded. Functional Status None recorded. Mental Status None recorded. Family History Nothing Reported. Medical History Condition Response Depression Y Anxiety Y Migraines Y Asthma Y Past Encounters Encounter ID Performer Location Encounter Start Date Encounter Closed Date Diagnosis/Indication Diagnosis SNOMED-CT Code Diagnosis ICD10 Code Diagnosis Note [id number] MATT FRANCISCO PA-C [facility] [address] [address] 12/24/2023 09:33:10 12/24/2023 11:25:56 Asymmetrical sensorineural hearing loss 633753679 H90.5 Audiologic al evaluation results: Right ear: {{Normal* Normal through 2 kHz Mild M oderate Mo derately-s evere Bernice re Profoun d}} {{hearing sloping to a mild* slop ing to a moderate s loping to moderately severe slo ping to severe slo ping to profound f lat high frequency low frequency mid frequency cookie bite nguyen curve}} {{with sen sorineural hearing loss with* cond uctive hearing loss with mixed hearing loss with}} {{excellen t* good fa ir poor no measurable }} word recognitio n. Left ear: {{Normal* Normal through 2 kHz Mild M oderate Mo derately-s evere Bernice re Profoun d}} {{hearing sloping to a mild slopi ng to a moderate* sloping to moderately severe slo ping to severe slo ping to profound f lat high frequency low frequency mid frequency cookie bite nguyen curve}} {{with sen sorineural hearing loss with* cond uctive hearing loss with mixed hearing loss with}} {{excellen t* good fa ir poor no measurable }} word recognitio n. Asymmetric SNHL at 3-6k Hz, or 10-30dB, worst in the left. Tympanomet ry: Right Ear:{{Type A* Type As Type Ad Type C Type C, shallow & rounded Ty pe B Type B with large volume Cou ld not maintain a hermetic seal}} Left Ear:{{Type A* Type As Type Ad Type C Type C, shallow & rounded Ty pe B Type B with large volume Cou ld not maintain a hermetic seal}} [id number] ASHWINI CONCEPCION MD [facility] [address] [address] 02/29/2024 12:58:07 02/29/2024 13:34:02 Asymmetrical sensorineural hearing loss [id number] H90.5 Health Concerns Section Related Observation LastModified by Organization Detai ls LastModified Time None Recorded Concern Status LastModified by Organization Details LastModified Time None Recorded Advance Directives Directive None Recorded Payers Encounter Date Sequence Insurance Name Policy Number Policy Fraser Covered Member ID Fraser Member ID Guarantor Name 12/24/2023 1 [place] [id number] Yashoscar Ribera 02/29/2024 1 [place] [facility] Solis [id number] Yash Will Ribera Notes Date Note Type Note Provider Name and Address Organization Details Recorded Time 12/24/2023 text/html 33-year-old male presents for evaluation of tinnitus and hearing loss. He has been having yearly hearing screening at [facility] and was noted to have increasing gap between the left and the right ear. He does not notice this day today. Does not struggle with his hearing but does struggle with the tinnitus, particularly at night when he is trying to fall asleep when it is worse. He does have depression and anxiety. MATT FRANCISCO PA-C [address], [address], [facility] - [facility] 12/24/2023 11:35:51 02/29/2024 text/html 33-year-old male presents for MRI review. MRI was reviewed for asymmetric sensorineural hearing loss, left greater than right. Hearing loss was in the higher tones 2 months ago according to office testing. He has had persistent tinnitus but no changes in hearing. ASHWINI CONCEPCION MD [address] [place] [address], [phone], [facility] - [facility] 03/01/2024 14:10:27
--- OUTSIDE RECORDS SUMMARY | 2024-08-08 12:50 | XMS_ITS | Encounter Summary ---
Author Organization [employer] Address [address] [place] [address] [address] [place] [address] Care Team Providers Care Regulatory Affairs Consultant Name Role Phone Martina Chowdhury MD Primary Care Pro vider Reason for Visit * Reason Comments Med Refill Encounter Details Date Type Department Care Team ([facility] Contact Info) Description 11/18/2022 Refill [facility] [address] [place] [address] [phone] Martina Chowdhury MD [address], [place] [phone] Social History Tobacco Use Types Packs/Day Years Used Date Smoking Tobacco: Every Day Cigarettes Passive Smoke Exposure: Current Smokeless Tobacco: Never Comments:Started smoking sin ce 16 years until now -no daily use ---1PQT a week - aprox 3 cigarettes a day- not smoked x 3 years -so far smoking 14 years / PQT year calc 2.1 Alcohol Use Standard Drinks/Week Comments Yes 0 (1 standard drink = 0.6 oz pur e alcohol) social Sex and Gender Information Value Date Recorded Sex Assigned at Male 03/09/2022 10:36 AM EDT Legal Sex Male 10:36 AM EDT Gender Identity Male 03/09/2022 10:36 AM EDT Sexual Orientation Straight 03/09/2022 10 :36 AM EDT documented as of this encounter Plan of Treatment Upcoming Encounters Date Type Department Care Team (Late Contact Info) Description 08/15/2024 11:15 AM EDT Office Visit [facility] [address] [place] [address] [phone] Martina Chowdhury MD [address], [place] [phone] documented as of this encounter Visit Diagnoses Not on filedocumented in this encounter Additional Health Concerns Assessment Noted Time PHQ-9 Depression Total Score: 11 023 2:11 PM EDT documented as of this encounter Care Teams Regulatory Affairs Consultant Relationship Specialty Start Date End Date Martina Chowdhury MD [address] [place] [id number] PCP - General Internal Medicine 08/25/22 documented as of this encounter
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
[2024-08-08 14:17] LABS: CT PCR NOT DETECTED (Not Detect.); NG PCR NOT DETECTED (Not Detect.)
== END 2024-08-08 10:42 | disposition home or self-care (01) ==
LOC: HO.HHCL 10:41
PROVIDERS: Visit Provider Student in an Organized Health Care Education/Training Program
DX: Z00.00 Encounter for general adult medical examination without abnormal findings (principal)
CPT/HCPCS: 80053; 80061; 83036; 84443; 85027; 86704; 86706; 86780; 86803; 87340; 87389; 87491; 87591

== ENCOUNTER 2024-08-15 16:48 | Outpatient (REF) | payer MEDICAID, SELFPAY ==
--- OUTSIDE RECORDS SUMMARY | 2024-08-15 19:10 | XMS_ITS | Encounter Summary ---
Author Organization [employer] Address [address] [place] [address] [address] [place] [address] Care Team Providers Care Delimber Operator Name Role Phone Martina Chowdhury MD Primary Care Pro vider Reason for Visit * Reason Comments Med Refill Encounter Details Date Type Department Care Team ([facility] Contact Info) Description 11/18/2022 Refill [facility] [address] [place] [address] [phone] Martina Chowdhury MD [address] [place], [place] [phone] Social History Tobacco Use Types Packs/Day Years [...] Department Care Team (Late Contact Info) Description 11/14/2024 11:15 AM EDT Office Visit [facility] [address] [place] [address] [phone] Martina Chowdhury MD [address] [place], [place] [phone] documented as of this encounter Visit Diagnoses Not on filedocumented in this encounter Additional Health Concerns Assessment Noted Time PHQ-9 Depression Total Score: 11 023 2:11 PM EDT documented as of this encounter Care Teams Delimber Operator Relationship Specialty Start Date End Date Martina Chowdhury MD [address] [place] [phone] PCP - General Internal Medicine 08/25/22 documented as of this encounter
--- OUTSIDE RECORDS SUMMARY | 2024-08-15 19:10 | XMS_ITS | Encounter Summary ---
Author Organization [employer] Address [address] [place] [address] Care Team Providers Care Cleaning Handyman Name Role Phone Martina Chowdhury MD Primary Care Pro vider Encounter Details Date Type Department Care Team (Latest Contact Info) Description 08/15/2024 Travel Social History Tobacco Use Types Packs/Day Years [...] Answer Date Recorded Patient Health Questionnaire-2 Score 0 08/15/2024 Internet Access Answer Date Recorded Internet Access [...] Care Team (Late st Contact Info) Description 11/14/2024 11:15 AM EDT Office Visit [facility] [address] [place] [address] [phone] Martina Chowdhury MD [address] [place] [address] [phone] documented as of this encounter Goals Goal [...] documented as of this encounter Care Teams Cleaning Handyman Relationship Specialty Start Date End Date Martina Chowdhury MD [address] [place] [address] [phone] PCP - General Internal Medicine 08/25/22 documented as of this encounter
--- OUTSIDE RECORDS SUMMARY | 2024-08-15 19:10 | XMS_ITS | Encounter Summary ---
Author Organization [email or web address] Address [address] [facility] [address] [place] [address] Care Team Providers Care Butadiene Converter Utility Operator Name Role Phone Martina Chowdhury MD Primary Care Pro vider Encounter Details Date Type Department Care Team (Late st Contact Info) Description 08/15/2024 11:15 AM EDT Office Visit [facility] [address] [place], [place] [phone] Martina Chowdhury MD [address] [place], [place] [phone] Healthcare maintenance (Primary Dx); Dietary counseling; Exercise counseling; Mild intermittent asthma, uncomplicated; FRANK (generalized anxiety disorder); Tobacco abuse Social History Tobacco Use Types Packs/Day Years [...] AM EDT documented as of this encounter Last Filed Vital Signs Vital Sign Reading Time Taken Comments Blood Pressure 137/86 08/15/2024 11:07 AM EDT Pulse 66 08/15/2024 11:07 AM EDT Temperature 36.8 ??C (98.3 ??F) 08/15/2024 11:07 AM E DT Respiratory Rate 17 08/15/2024 11:07 AM EDT Oxygen Saturation 98% 08/15/2024 11:07 AM EDT Inhaled Oxygen Concentration - - Weight 85.4 kg (188 lb 4.8 oz) 08/15/2024 11:07 AM EDT Height 180.3 cm (5' 11 ) 08/15/2024 11:07 AM EDT Body Mass Index 26.26 08/15/2024 11:07 AM EDT documented in this encounter Plan of Treatment Upcoming Encounters Date Type Department Care Team (Late st Contact Info) Description 11/14/2024 11:15 AM EDT Office Visit [facility] [address] [place] [phone] Martina Chowdhury MD [address] [place] [address] Scheduled Orders Name Type Priority Associated Diagnoses Orde r Schedule Drug Monitoring, Panel 1, Screen, Urine Lab Routine FRANK (generalized anxiety disorder) Expected: 08/15/2024 (Approximate), Expires: 08/15/2025 documented as of this encounter Goals Goal Patient Goal Type Associated Problems Recent Progress Patient-Stated? Author Smoking cessation General No Federico Dow Note: Utilize NRT to achieve smoking cessation. documented as of this encounter Visit Diagnoses Diagnosis Healthcare maintenance- Primary Dietary counseling Dietary surveillance and counseling Exercise counseling Mild intermittent asthma, uncomplicated FRANK (generalized anxiety disorder) Generalized anxiety disorder Tobacco abuse Tobacco use disorder documented in this encounter Additional Health Concerns Assessment Noted Time PHQ-9 Depression Total Score: 7 07/18/19 25 1:53 PM EDT documented as of this encounter Care Teams Butadiene Converter Utility Operator Relationship Specialty Start Date End Date Martina Chowdhury MD [address] [place] [phone] PCP - General Internal Medicine 08/25/22 documented as of this encounter
--- OUTSIDE RECORDS SUMMARY | 2024-08-15 19:10 | XMS_ITS | Encounter Summary ---
Author Organization [employer] Address [address] [facility] 7 [place] [address] Care Team Providers Care Bread Pan Greaser Name Role Phone Martina Chowdhury MD Primary Care Pro vider Reason for Visit * Reason Onset Date Comments Notes 08/15/2024 Encounter Details Date Type Department Care Team (Late st Contact Info) Description 08/15/2024 Telephone [facility] [address] [place], [place] [phone] Martina Chowdhury MD [address] [place] [address] Notes Social History Tobacco Use Types Packs/Day Years [...] AM EDT documented as of this encounter Miscellaneous Notes * Telephone Encounter - Marilyn Beth [place] - 08/15/2024 2:02 PM EDT Fax-[place] Supervisor requested last notes from ENT. documented in this encounter Plan of Treatment Upcoming Encounters Date Type Department Care Team (Late st Contact Info) Description 11/14/2024 11:15 AM EDT Office Visit [facility] [address] [place] [address] Martina Chowdhury MD [address] [place] [address] documented as of this encounter Goals Goal [...] documented as of this encounter Care Teams Bread Pan Greaser Relationship Specialty Start Date End Date Martina Chowdhury MD [address] [place] [address] PCP - General Internal Medicine 08/25/22 documented as of this encounter
--- OUTSIDE RECORDS SUMMARY | 2024-08-15 19:10 | XMS_ITS | Data Portability ---
Author Organization ID - [facility], All[facility] Address [address] [address] Care Team Providers Care General Surgeon Name Role Phone KELSIE ELIAS Primary Care [...] loss or worsening tinnitus. All questions answered. [email or web address] Not available 02/29/2024 13:50:11 Plan of Treatment [...] internal auditory canal, w/wo contrast 2023 024 [email or web address] [facility] ([facility]), [address], [place], [address], 02/02/2024 10:50:15 Medication Orders None recorded. Patient TargetsNo targets recorded. Patient InstructionsNo instructions recorded. Reason for Referral None Reported. Results Created Date Observation Date Name Description Value Unit Range Abnormal Flag Note LastModifiedBy Organization Detail LastModifiedTime 12/27/19 audio gram No observ ation record ed. BARCODE Not Available 2023 14:05:54 02/08/2002/05/2024 [facility] Access ion Number : [id number] Juan neal Name: Yash Solis Record Number : [id number] Date of : 1990 Date of Exam: 2023 Referr ing Physic daniel: Matt Pabon [facility] [address], [address] [facility] [address] Exam: MR Brain (C-/C+ ) CPT 79851 [facility] ([facility]-/C+ ) CPT 97611 INDICA TION / CLINIC [facility] ON: [...] or abnorm al enhanc ement in the clinical nursing intern al audito ry canals or cerebe llopon [...] onical ly Signed By: Clair Contreras MD [email or web address] [facility] ([facility]) [address], [place], [address], 02/09/2024 12:48:33 02/08/2002/05/2024 MRI, inter nal audit ory canal , w/wo contr ast No observ ation record ed. [email or web address] [facility] [address], [place], [address], 02/09/2024 12:48:43 02/10/20 24 02/05/2024 MRI, brain + brain stem, w/wo contr [facility] Access ion Number : [id number] Juan neal Name: Yash Solis Record Number : [id number] Date of : 1990 Date of Exam: 2023 Referr ing Physic daniel: Matt Pabon [facility] d [address], [address] [facility], [facility] s [address] Exam: MR Brain (C-/C+ ) CPT 99526 Room Descri ption: [facility] 3.0T MR Brain (C-/C+ ) CPT 40469 INDICA TION / CLINIC AL QUESTI ON: [...] or abnorm al enhanc ement in the clinical nursing intern al audito ry canals or cerebe llopon [...] onical ly Signed By: Clair Contreras MD [address] [facility] ([facility]) [address], [place], [address], 02/11/2024 08:49:50 Result Notes None recorded. Problems Name Problem SNOMED Code Status Onset Date Resolution Date Notes Provider Name and Address Organization Details Recorded Time Asymmetrical sensorineural hearing loss 941234433 Active 2023 Safia velarde [place] - [facility] 10:36:52 Problem Notes None recorded. Procedures Surgical History Date Name Laterality Status Provider Name and Address Organization Details Recorded Time 12/24/2023 Comp Audio with Tymps (74286 & 75587) completed Safia Villalobos [place] - [facility] 12/24/2023 10:36:35 Imaging Results Imaging Date Name Status LastModified by Organiz ation Details LastModified Time 12/27/2023 audiogram completed BARCODE Information no t available 12/27/2023 14:05:54 02/05/2024 MRI, brain + brain stem, w/wo contrast completed [address] [facility] ([facility]) [address], [place], [address], 02/09/2024 12:48:33 02/05/2024 MRI, internal auditory canal, w/wo contrast completed [address] [facility] [address], [place], [address], 02/09/2024 12:48:43 02/05/2024 MRI, brain + brain stem, w/wo contrast completed [address] [facility] ([facility]) [address], [place], [address], 02/11/2024 08:49:50 Procedure Notes None recorded. Medical Equipment None Reported. Allergies Allergen ID Allergen Name Allergen Category Reaction Reaction Severity Criticality Documentation Date Start Date Code Code System Note Provider Name and Address Organization Details Recorded Time 359915 shellfish derived food,medi cation Not available Not available Not available 12/24/2023 [id number] ZOFIA velarde [place] - [facility] 10:10:37 Medications Name Sig Start Date [...] Updated DateTime 12/24/2023 180.34 cm 24.8 kg/m2 63638.44 g Rhiannon Osei MA - [facility] 12/24/2023 11:10:29 Social History None recorded. Functional Status None recorded. Mental Status None recorded. Family History Nothing Reported. Medical History Condition Response Anxiety Y Migraines Y Depression Y Asthma Y Past Encounters Encounter ID Performer Location Encounter Start Date Encounter Closed Date Diagnosis/Indication Diagnosis SNOMED-CT Code Diagnosis ICD10 Code Diagnosis Note [id number] MATT FRANCISCO PA-C [facility] [address] [address] 12/24/2023 09:33:10 12/24/2023 11:25:56 Asymmetrical sensorineural hearing loss 881262925 H90.5 Audiologic al evaluation results: Right ear: [...] Cou ld not maintain a hermetic seal}} [id number] ASHWINI CONCEPCION MD [facility] [address] [address] 02/29/2024 12:58:07 02/29/2024 13:34:02 Asymmetrical sensorineural hearing loss 371415780 H90.5 Health Concerns Section Related Observation LastModified by Organization Detai ls LastModified Time None Recorded Concern Status LastModified by Organization Details LastModified Time None Recorded Advance Directives Directive None Recorded Payers Encounter Date Sequence Insurance Name Policy Number Policy Fraser Covered Member ID Fraser Member ID Guarantor Name 12/24/2023 1 [place] [id number] Ysahoscar Ribera 02/29/2024 1 [place] [facility] Solis [id number] Yash Will Ribera Notes Date Note Type Note Provider Name and Address Organization Details Recorded Time 12/24/2023 text/html 33-year-old male presents for evaluation of tinnitus and hearing loss. He has been having yearly hearing screening at [facility] and was noted to have increasing gap between the left and the right ear. He does not notice this day today. Does not struggle with his hearing but does struggle with the tinnitus, particularly at night when he is trying to fall asleep when it is worse. He does have depression and anxiety. MATT FRANCISCO PA-C [address], [address], [facility] - [facility] 12/24/2023 11:35:51 02/29/2024 text/html 33-year-old male presents for MRI review. MRI was reviewed for asymmetric sensorineural hearing loss, left greater than right. Hearing loss was in the higher tones 2 months ago according to office testing. He has had persistent tinnitus but no changes in hearing. ASHWINI CONCEPCION MD [address] [place] [address], [phone], [facility] - [facility] 03/01/2024 14:10:27
--- OUTSIDE RECORDS SUMMARY | 2024-08-15 19:10 | XMS_ITS | Clinical Summary ---
Author Organization [employer] Address [address] [place] [address] Care Team Providers Care Tooling Manager Name Role Phone Martina Chowdhury MD Primary Care Pro vider Allergies Active Allergy Reactions Criticality Noted Date Comments Shellfish Allergy Hives 11/18/2022 Medications * This document contains information received from the source organization and may not represent a complete record from that organization. nicotine polacrilex (Commit) 2 MG lozenge Use 1 lozenge PO every 1-2 HRS PRN during the first 6 weeks. Reduce to 1 lozenge PO every 2-4 HRS PRN in weeks 7-9, 1 lozenge PO every 4-8 HRS PRN in weeks 10-12, then stop. Max 5 lozenges/6 HRS or 20/day 100 lozenge 1 01/25/20 24 Active albuterol 108 (90 Base) MCG/ACT inhaler Inhale 2 puffs every 4 (four) hours. 18 g 2 01/25/20 24 Active cetirizine (ZyrTEC) 10 MG tablet TAKE 1 TABLET BY MOUTH EVERY DAY 90 tablet 1 02/02/20 24 Active hydrOXYzine pamoate (Vistaril) 50 MG capsule TAKE 1 CAPSULE BY MOUTH AT BEDTIME NEEDED FOR ANXIETY 90 capsule 1 04/18/20 24 Active EPINEPHrine (Epipen) 0.3 MG/0.3ML injection syringe Inject 0.3 mL (0.3 mg) as directed 1 (one) time if needed for anaphylaxis. Inject into upper leg. Call 911 after use. 1 each 1 08/16/19 25 026 Active EPINEPHrine (Epipen) 0.3 MG/0.3ML injection syringe Inject 0.3 mL (0.3 mg) as directed 1 (one) time if needed for anaphylaxis for up to 1 dose. Inject into upper leg. Call 911 after use. 1 each 1 11/19/19 23 025 Discontinued(Re order (will not trigger notification to Pharmacy)) sodium chloride ([place]) 0.65 % nasal spray Administer 1 spray into each nostril if needed for congestion. 15 mL 3 01/25/20 24 025 Discontinued(Ot her) Active Problems Problem Noted Date Diagnosed Date Viral upper respiratory tract infection 01/25/20 24 Hearing loss 07/20/2023 FRANK (generalized anxiety disorder) 11/19/2022 Assessment & Plan (12/29/2023 2:23 PM EDT): PLAN: (check all that apply) Behavioral Health Integration Plan Internal Follow up with [facility] Patient Self Plan Patient to utilize skills provided in intervention , Patient [facility] team as needed, Comply with medication , Patient to engage in OP therapy , and Patient to reach out to [facility] as needed Pt was giving with information [...] effects. Currently receiving OP individual therapy at [facility] but he reports not being satisfied with [...] Health Integration Plan Internal Follow up with [facility] External OP BH therapy referral and OP psychiatry Referral Patient Self Plan Patient to utilize skills provided in intervention , Patient to reach out to [facility] team as needed, Comply with medication , Patient to engage in OP therapy , and Patient to reach out to [facility] as needed. Pt is currently connected with a therapist at [facility] and has telehealth sessions weekly. He's not [...] Health Integration Plan Internal Follow up with [facility] Patient Self Plan Patient to utilize skills provided in intervention , Patient to reach out to [facility] team as needed, Patient to engage in OP therapy , and Patient to reach out to [facility] as needed, patient agreed to follow safety plan. Pt is currently connected with a therapist at [facility] and has telehealth sessions weekly. Pt would like to follow-up with [facility] clinician during his next medical [...] seek support PLAN: 1. Follow up with [facility]: Not recommended for follow-up 2. 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 Hep B not immune to start series today --- -referred to flooring professional for chronic bilateral hearing loss-pd to get apt -labs 11/2022 WBC 4.1<----4.3,ANC 1700 --will repeat CBC in 3 mo if ANC < 1500 will refer to fixed interest dealer Assessment & Plan (11/18/2022 9:07 PM EDT): -labs x annual exam will RTC in fasting -pt agreed to have STI testing including HIV to have for baseline -vaccines: s/p COVID-19 x2, today bivalent, Tdap and P20, unsure about HPV vaccine-advise that if interested can get vax at vaccine clinic --- -referred to flooring professional for chronic bilateral hearing loss Mild intermittent [...] & Plan (07/17/2024 3:12 PM EDT): During IB Consult Yash presenting with depressed mood, Tearful, [...] him to overcome his struggles. He joined [employer] and reports being highly involved in [employer] activities. He continues seeing his therapist, Rosario, from [facility]. [facility]. Yash states he [...] Health Integration Plan Internal Follow up with [facility] Patient Self Plan Patient to utilize skills provided in intervention , Patient to reach out to [facility] team as needed, Comply with medication , Patient to engage in OP therapy , and Patient to reach out to [facility] as needed Pt was giving with information [...] effects. Currently receiving OP individual therapy at [facility] but he reports not being satisfied with [...] Health Integration Plan Internal Follow up with [facility] External OP therapy referral and OP psychiatry Referral Patient Self Plan Patient to utilize skills provided in intervention , Patient to reach out to [facility] team as needed, Comply with medication , Patient to engage in OP therapy , and Patient to reach out to [facility] as needed. Pt is currently connected with a therapist at [facility] and has telehealth sessions weekly. He's not [...] Health Integration Plan Internal Follow up with [facility] Patient Self Plan Patient to utilize skills provided in intervention , Patient to [facility] out to [facility] team as needed, Patient to engage in OP therapy , and Patient to reach out to [facility] as needed, patient agreed to follow safety plan. Pt is currently connected with a therapist at [facility] and has telehealth sessions weekly. Pt would like to follow-up with [facility] clinician during his next medical [...] seek support PLAN: 1. Follow up with [facility]: Not recommended for follow-up 2. Patient goal [...] pharm clinic today -monitor in 4 weeks Resolved Problems Problem Noted Date Diagnosed Date Resolved Date Suicidal ideation 07/20/2023 08/15/2024 Assessment & Plan (12/29/2023 2:23 PM EDT): PLAN: (check all that apply) Behavioral Health Integration Plan Internal Follow up with [facility] Patient Self Plan Patient to utilize skills provided in intervention , Patient to reach out to [facility] team as needed, Comply with medication , Patient to engage in OP therapy , and Patient to reach out to [facility] as needed Pt was giving with information [...] effects. Currently receiving OP individual therapy at [facility] but he reports not being satisfied with [...] Health Integration Plan Internal Follow up with [facility] External OP therapy referral and OP psychiatry Referral Patient Self Plan Patient to utilize skills provided in intervention , Patient to reach out to [facility] team as needed, Comply with medication , Patient to engage in OP therapy , and Patient to reach out to [facility] as needed. Pt is currently connected with a therapist at [facility] and has telehealth sessions weekly. He's not [...] and strength. Yash was connected with a psychiatric provider but didn't follow through recommendations; difficulty [...] Health Integration Plan Internal Follow up with [facility] Patient Self Plan Patient to utilize skills provided in intervention , Patient to reach out to [facility] team as needed, Patient to engage in OP therapy , and Patient to reach out to [facility] as needed, patient agreed to follow safety plan. Pt is currently connected with a therapist at [facility] and has telehealth sessions weekly. Pt would like to follow-up with [facility] clinician during his next medical appointment. Encounters * This document contains information received from the source organization and may not represent a complete record from that organization. Date Type Department Care Team Description 08/15/2024 11:15 AM EDT Office Visit [facility] [address] [place] [phone] Martina Chowdhury MD Healthcare maintenance (Primary Dx); Dietary counseling; Exercise counseling; Mild intermittent asthma, uncomplicated; FRANK (generalized anxiety disorder); Tobacco abuse 08/15/2024 Telephone [facility] [address] [place] [phone] Martina Chowdhury MD Notes 08/15/2024 Travel 08/04/2024 Patient Outreach [facility] [address] [place] [phone] Martina Chowdhury MD Pre-visit Planning (SDOH Screening negative and Tobacco screening positive) 08/02/[address] [phone] Martina Chowdhury MD chart prep 08/02/[address] [phone] Martina Chowdhury MD chart prep 07/21/2024 Population Health Risk Score [facility] () [address] [phone] Provider, Population Health Generic 06/13/[address] [address] Marilyn Beth MA August recalls from Last [...] Mass Index 26.26 08/15/2024 11:07 AM EDT Plan of Treatment Upcoming Encounters Date Type Department Care Team ([facility] st Contact Info) Description 11/14/2024 11:15 AM EDT Office Visit [facility] [address] [place], [place] [phone] Martina Chowdhury MD [address] [place], [place] [phone] Health Maintenance Due Date Last Done Comments Family Planning (PISQ) 12/02/2003 COVID-19 Vaccine ( season) 2024 07/20/2023, 11/18/2022, 05/18/2021, Additional history exists Influenza Vaccine (#1) 2024 03/16/2016, 2015 SDOH Screening 08/04/2025 08/04/2024 Alcohol/Substance Use Screening 08/15/2025 08/15/2024 Depression Screening 08/15/2025 08/15/2024, 07/18/19 Tobacco Screening 08/15/2025 08/15/2024 Lipid Panel 08/08/2029 08/08/2024, 11/07, 08/14/2020 DTaP/Tdap/Td Vaccines (3 - Td or Tdap) 11/18/2032 11/18/2022, 07/11/2015 Zoster Vaccines (1 of 2) 2038 RSV Patients and Patients Aged 60 years or older (1 - 1-dose 75+ series) 12/02/2063 Pneumococcal Vaccine: Pediatrics (0 to 5 Years) and At-Risk Patients (6 to 49) Years) Completed 11/18/2022 Hepatitis B Vaccines Completed 07/20/2023, 01/13/2023, 12/16/2022 HIV Screening Completed 08/08/2024, 11/07, 07/31/2019 Hepatitis C Screening Completed 08/08/2024 , 11/23/2022, 07/31/2019 HIB Vaccines Aged Out No longer eligi [...] 08/08/2024 10:44 AM EDT Annual physical exam HIV 1/2 ANTIGEN/ANTIBODY, FOURTH GENERATION W/RFL Routine 08/08/2024 10:44 AM EDT Annual physical exam HEPATITIS C AB W/REFL TO HCV RNA, QN, PCR Routine 08/08/2024 10:44 AM EDT Annual physical exam HEPATITIS B SURFACE ANTIGEN, EIA Routine 08/08/2024 10:44 AM EDT Annual physical exam HEPATITIS B SURFACE ANTIBODY, QUALITATIVE Routine 08/08/2024 10:44 AM EDT Annual physical exam HEPATITIS B CORE AB TOTAL Routine 08/08/2024 10:44 AM EDT Annual physical exam HEMOGLOBIN A1C Routine 08/08/2024 10:44 AM EDT Annual physical exam COMPREHENSIVE METABOLIC PANEL Routine 08/08/2024 10:44 AM EDT Annual physical exam CBC Routine 08/08/2024 10:44 AM EDT Annual physical exam CHLAMYDIA/N. GONORRHOEAE RNA, TMA, UROGENITAL Routine 08/08/2024 10:44 AM EDT Annual physical exam from Last 3 Months Results * Syphilis Screen (08/08/2024 10:44 AM EDT) Syphilis Screen Nonreactive Nonreactive [facility] Blood 08/08/2024 10:4 4 AM EDT 08/08/2024 11:21 AM EDT Martina Ash MD LAB BLOOD ORDERAB LES Final Result Performing Organization Address [facility]/ZIP Co de Phone Number [facility] [address] [place] [phone] * TSH with Reflex to Free T4 (08/08/2024 10:44 AM EDT) Pathologist [facility] TSH reflex Free T4 1.84 0.32 - 4.0 uIU/mL [facility] Blood 08/08/2024 10:4 4 AM EDT 08/08/2024 11:21 AM EDT us Martina Ash MD LAB BLOOD ORDERAB LES Final Result Performing Organization Address City/[facility]/ZIP Co de Phone Number [facility] [address] [place] [phone] * Hepatitis C Antibody with Reflex to HCV, RNA, Quantitative, Real-Time PCR (08/08/2024 10:44 AM EDT) Pathologist [facility] Hepatitis C Antibody Nonreactive Nonreactive [facility] Comment:Antibodies to HCV no t detected; does not exclude early acuteHCV infection. Blood Venous blood specimen / Unknown 08/08/2024 10:44 AM EDT 08/08/2024 11:21 AM EDT Martina Ash MD LAB BLOOD ORDERAB LES Final Result [facility] [address] [place] [phone] * Chlamydia/N. Gonorrhoeae RNA, TMA, Urogenitial (08/08/2024 10:44 AM EDT) CT PCR NOT DETECTED Not Detect. [facility] Comment:A not detected test result does not exclude the possibilityof infection because test results can be affected byimproper specimen collection, concurrent antibiotic therapy,or the number of organisms in the specimen which may bebelow the sensitivity of the test. As with many diagnostictests, results from the Xpert CT/NG assay should beinterpreted in conjunction with other laboratory andclinical data available to the clinician.Xpert CT/NG performance has not been evaluated in patientsless than 14 years of age. The assay should not be used forthe evaluationof suspected sexual abuse or for other medico-legalindications. Additional testing is recommended in anycircumstance when false positive or false negative resultscould lead to adverse medical, social or psychologicalconsequences. NG PCR NOT DETECTED Not Detect. [facility] Comment:A not detected test result does not exclude the possibilityof infection because test results can be affected byimproper specimen collection, concurrent antibiotic therapy,or the number of organisms in the specimen which may bebelow the sensitivity of the test. As with many diagnostictests, results from the Xpert CT/NG assay should beinterpreted in conjunction with other laboratory andclinical data available to the clinician.Xpert CT/NG performance has not been evaluated in patientsless than 14 years of age. The assay should not be used forthe evaluationof suspected sexual abuse or for other medico-legalindications. Additional testing is recommended in anycircumstance when false positive or false negative resultscould lead to adverse medical, social or psychologicalconsequences. Urine Urethral structure / Unknown 08/08/2024 10:44 AM EDT 08/08/2024 11:13 AM EDT Narrative [facility] - 08/08/2024 2:18 PM EDT Urine us Martina Ash MD LAB MICROBIOLOGY - GENERAL ORDERABLES Final Result Performing Organization Address [facility]/ZIP Co de Phone Number [facility] [address] [place] [phone] * Hepatitis B surface antigen, EIA (08/08/2024 10:44 AM EDT) Hepatitis B Surface Ag Negative Negative [facility] Blood Venous blood specimen / Unknown 08/08/2024 10:44 AM EDT 08/08/2024 11:21 AM EDT us Martina Ash MD LAB BLOOD ORDERAB LES Final Result Performing Organization Address [facility] Co de Phone Number [facility] [address] [place] [phone] * Hepatitis B Core Antibody, Total (08/08/2024 10:44 AM EDT) Hepatitis B Core Antibody Nonreactive Nonreactive [facility] Blood Venous blood specimen / Unknown 08/08/2024 10:44 AM EDT 08/08/2024 11:21 AM EDT us Martina Ash MD LAB BLOOD ORDERAB LES Final Result Performing Organization Address [facility] Co de Phone Number [facility] [address] [place] [phone] * HIV-1/2 Antigen and Antibodies, Fourth Generation, with Reflexes (08/08/2024 10:44 AM EDT) HIV AB/AG Nonreactive Nonreactive [facility] Comment:HIV-1 p24 Ag and/or HIV-1/HIV-2 Ab not detected.A test result that is nonreactive does not exclude thepossibility of exposure to or infection with HIV-1 and/orHIV-2. Nonreactive results in this assay for individualswith prior exposure to HIV-1 and/or HIV-2 may be due toantigen and antibody levels that are below the limit ofdetection of this assay.The [employer] [place] HIV Ag/Ab Combo assay result andsupplemental assay results should be interpreted inconjunction with the patient's clinical presentation,history and other laboratory results. If the results areinconsistent with clinical evidence, additional testing issuggested to confirm the result. Blood Venous blood specimen / Unknown 08/08/2024 10:44 AM EDT 08/08/2024 11:21 AM EDT us Martina Ash MD LAB BLOOD ORDERAB LES Final Result Performing Organization Address City/[facility]/ZIP Co de Phone Number [facility] [address] [place] [phone] * Hepatitis B Surface Antibody, Qualitative (08/08/2024 10:44 AM EDT) Pathologist [facility] ~Hepatitis B Surface Antibody REACTIVE Nonreactive [facility] Comment:REACTIVE: > 11.99 mI U/mL Blood Venous blood specimen / Unknown 08/08/2024 10:44 AM EDT 08/08/2024 11:21 AM EDT us Martina Ash MD LAB BLOOD ORDERAB LES Final Result Performing Organization Address City/[facility]/ZIP Co de Phone Number [facility] [address] [place] [phone] * (ABNORMAL) CBC (08/08/2024 10:44 AM EDT) [facility] White Blood Count 5.1 4.8 - 10.8 X10*3/uL [facility] Red Blood Count 4.61 4.60 - 5.80 X10*6/uL [facility] Hemoglobin 14.3 14.0 - 18.0 g/dl [facility] Hematocrit 40.8(L) 42.0 - 52.0 % [facility] Mean Corpuscular Volume 88.5 80.0 - 98.0 fL [facility] Mean Corpuscular Hemoglobin 31.0 27.0 - 33.0 pg [facility] Mean Corpuscular HGB Conc 35.0 31.0 - 36.0 g/dl [facility] Red Cell Distribution Width 11.8 11.0 - 16.0 % [facility] Platelet Count 276 160 - 400 X10*3/uL [facility] Mean Platelet Volume 10.6 9.4 - 12.4 fL [facility] NRBC Pct Auto 0.0 0.0 - 0.2 /100WBC [facility] NRBC Abs Auto 0.000 0.0 - 0.012 X10*3/uL [facility] Blood Venous blood specimen / Unknown 08/08/2024 10:44 AM EDT 08/08/2024 11:21 AM EDT us Martina Ash MD LAB BLOOD ORDERAB LES Final Result [facility] [address] [place] [phone] * Hemoglobin A1c (08/08/2024 10:44 AM EDT) Hemoglobin A1c 4.7 <6.0 % [facility] Comment:Hemoglobin A1C Refer ence Range Adults: 4.8 - 6.0 % Non diabetic: < 6.0 % Goal: < 7.0 %Additional Action Suggested: > 8.0 %Note: Hemoglobin A1c results are invalid for patients with abnormal amounts of HbF. Blood transfusions may impact the HbA1c concentration in the patient sample. Estimated Average Glucose 88 mg/dL [facility] Comment:eAG = Estimated ave rage glucose which is %A1C expressed asaverage glucose, using the formula of the O2E-BvigpuoVyocyne Glucose study (ADAG), Diabetes Care, Vol.31,#8,Dec. 2007 Blood Venous blood specimen / Unknown 08/08/2024 10:44 AM EDT 08/08/2024 11:21 AM EDT us Martina Ash MD LAB BLOOD ORDERAB LES Final Result Performing Organization Address City/[facility]/ZIP Co de Phone Number [facility] [address] [place] [phone] * (ABNORMAL) Lipid Panel, Standard (08/08/2024 10:44 AM EDT) Triglycerides 145 <150 mg/dL [facility] Comment:Desirable Triglyceri de: less than 150 mg/dLBorderline High Triglyceride 150-199 mg/dLHigh Triglyceride: 200-499 mg/dLVery High Triglyceride: greater than or equal to 5OO mg/dL Cholesterol 189 <200 mg/dL [facility] Comment:Desirable Cholestero l: less than 200 mg/dLBorderline High Cholesterol: 200-239 mg/dLHigh Cholesterol: greater than 239 mg/dL LDL Cholesterol Calculated 134(H) <100 mg/dL [facility] Comment:Desirable LDL: less than 100 mg/dLNear Optimal/Above Optimal LDL: 110- 129 mg/dLBorderline High LDL: 130-159 mg/dLHigh LDL: 160-189 mg/dLVery High LDL: greater than or equal to 190 mg/dL HDL Cholesterol 26(L) >40 mg/dL [facility] Comment:Desirable HDL: great er than 40 mg/dL Note: This HDL assay may give artificially low results in patients with liver disease. Blood Venous blood specimen / Unknown 08/08/2024 10:44 AM EDT 08/08/2024 11:21 AM EDT us Martina Ash MD LAB BLOOD ORDERAB LES Final Result Performing Organization Address City/[facility]/ZIP Co de Phone Number [facility] [address] [place] [phone] * (ABNORMAL) Comprehensive Metabolic Panel (08/08/2024 10:44 AM EDT) Sodium 140 135 - 145 mmol/L [facility] Potassium 3.9 3.3 - 5.1 mmol/L [facility] Chloride 108 96 - 108 mmol/L [facility] Carbon Dioxide 29 22 - 29 mmol/L [facility] Anion Gap 7(L) 12 - 20 [facility] Urea Nitrogen (BUN) 14 9 - 16 mg/dL [facility] Creatinine, Serum 0.80 0.5 - 1.4 mg/dL [facility] Estimated Glomerular Filt Rate >60 [facility] Comment:Chronic Kidney Disea se: Estimated GFR < 60 mL/min/1.78u5Bhipen Kidney Disease: Estimated GFR < 15 mL/min/1.73m2 Glucose 93 60 - 115 mg/dL [facility] Calcium 9.2 8.4 - 10.2 mg/dL [facility] Bilirubin, Total 0.9 0.0 - 1.0 mg/dL [facility] Aspartate Amino Transferase 27 5 - 37 U/L [facility] Alanine Aminotransferase 60(H) 0 - 40 U/L [facility] Total Protein 7.2 6.5 - 8.0 g/dL [facility] Albumin Level 4.5 3.5 - 5.0 g/dL [facility] Alkaline Phosphatase 72 39 - 117 U/L [facility] Blood Venous blood specimen / Unknown 08/08/2024 10:44 AM EDT 08/08/2024 11:21 AM EDT us Martina Ash MD LAB BLOOD ORDERAB LES Final Result [facility] [address] [place] [address] [phone] from Last [address] [place] [address] [place] [address] C3 Care Teams Tooling Manager Relationship Specialty Start Date End Date Martina Chowdhury MD [address] [place] [phone] PCP - General Internal Medicine 08/25/22
== END 2024-08-15 16:49 | disposition home or self-care (01) ==
LOC: HO.HHCLNP 16:48
PROVIDERS: Visit Provider Student in an Organized Health Care Education/Training Program
DX: F41.1 Generalized anxiety disorder (principal)
CPT/HCPCS: 80307

== ENCOUNTER 2024-11-28 10:30 | Outpatient (REF) | payer MEDICAID, SELFPAY ==
--- OUTSIDE RECORDS SUMMARY | 2024-11-28 11:42 | XMS_ITS | Data Portability ---
Author Organization [place] - [facility], Allergy Address [address] [address] Care Team Providers Care Teacher Visually Impaired Name Role Phone KELSIE ELIAS Primary Care [...] loss or worsening tinnitus. All questions answered. veronica Not available 02/29/2024 13:50:11 10/09/2024 10/09/2024 33-year-old male with high-frequency sensorineural hearing loss presents for hearing reevaluation. He reports stable hearing. TMs and EACs are normal to inspection. Posterior external ear with 5 mm x 5mm cyst, consistent with epidermal inclusion cyst. No overlying erythema or sign of active infection. Audiometric testing demonstrates normal through 3 kHz sloping to moderate sensorineural hearing loss, stable compared to prior testing 10 months ago. Tympanometry is normal and word recognition is excellent. MRI of the IACs 01/2024 was negative for retrocochlear pathology. Patient is not yet a candidate for amplification. Recommend observation with repeat audiometric testing in one year. Patient will return with MD to discuss ear cyst excision as this has been a chronic issue for 10 years. [email or web address] Not available 10/09/2024 12:23:17 Plan of Treatment Reminders Order Date Submit Date Provider Last Modified By Organization Details Last Modified Time Details Appointments Establish ed 10 2024 11:00A M ASHWINI CONCEPCION MD Not available Not available Not available Lab None recorded. Referral None recorded. Procedures None recorded. Surgeries None recorded. Imaging MRI, internal auditory canal, w/wo contrast 2023 024 [email or web address] [facility] ([facility]), [address], [place], [address], 02/02/2024 10:50:15 Medication Orders None recorded. Patient TargetsNo targets recorded. Patient InstructionsNo instructions recorded. Reason for Referral None Reported. Results Created Date Observation Date Name Description Value Unit Range Abnormal Flag Note LastModifiedBy Organization Detail LastModifiedTime 12/27/19 24 audio gram No observ ation record ed. BARCODE Not Available 2023 14:05:54 02/08/20 24 02/05/2024 MRI, brain + brain stem, w/wo contr ast [facility] Access ion Number : [id number] Juan t Name: Yash Solis Record Number : [id number] Date of : 1990 Date of Exam: 2023 Referr ing Physic daniel: Matt Pabon [facility] [place] [place] d [address], [address] [facility], [place] [address] Exam: MR Brain (C-/C+ ) CPT 41160 Room Descri ption: [facility] Verio 3.0T MR Brain (C-/C+ ) CPT 89989 INDICA TION / CLINIC AL QUESTI ON: [...] or abnorm al enhanc ement in the event planning intern al audito ry canals or cerebe [...] ms. Electr onical ly Signed By: Clair [email or web address] [facility] ([facility]) [address], [place], [address], 02/09/2024 12:48:33 02/08/20 24 02/05/2024 MRI, inter nal audit ory canal , w/wo contr ast No observ ation record ed. [email or web address] [facility] [address], [place], [address], 02/09/2024 12:48:43 02/10/2002/05/2024 MRI, brain + brain stem, w/wo contr ast [facility] Access ion Number : [id number] Juan t Name: Yash Solisa gosia Record Number : [id number] Date of : 1990 Date of Exam: 2023 Referr ing Physic daniel: Matt Pabon [facility] [place] [address], [address] [facility], [place] [address] Exam: MR Brain (C-/C+ ) CPT 81365 Room Descri ption: [facility] Verio 3.0T MR Brain (C-/C+ ) CPT 55954 INDICA TION / CLINIC AL QUESTI ON: [...] or abnorm al enhanc ement in the event planning intern al audito ry canals or cerebe [...] ms. Electr onical ly Signed By: Clair [address]der[address] [place] [address] [facility] ([facility]) [address], [place], [address], 02/11/2024 08:49:50 10/10/19 25 audio gram No observ ation record ed. BARCODE Not Available 2024 13:54:58 Result Notes Documentation Provider Name and Address Organization Details Recorded Time Mri, Brain + Brain Stem, W/wo Contrast : [facility]- [place] Accession Number: [id number] Patient Name: Yash Solis Date of : 1990 Date of Exam: 02-05-2024 Referring Physician: Matt Wells [facility] [address], [address] [place], [place] [address] Exam: MR Brain (C-/C+) [facility] [address] Room Description: [place] [facility] LS15io 3.0T MR Brain (C-/C+) [facility] [address] INDICATION / CLINICAL QUESTION: Asymmetrical sensorineural hearing loss. Per technologist interview: Patient reports left-sided hearing loss. TECHNIQUE: Multiplanar, multisequence MRI of the brain was performed with and without intravenous contrast. 17 mL Dotarem intravenous contrast was administered. COMPARISON: None. FINDINGS: IAC: There is no mass or abnormal enhancement in the internal auditory canals or cerebellopontine angles. Course and caliber of the 7th and 8th cranial nerves is normal bilaterally. Fluid signal is preserved in the inner ear structures bilaterally. Brainstem demonstrates normal signal. BRAIN and EXTRA-AXIAL SPACES: No significant abnormality of the visualized portions of the brain and extra-axial spaces. EXTRACRANIAL SOFT TISSUES: Visualized portions of the extracranial soft tissues are unremarkable. BONES: Visualized marrow signal is preserved. IMPRESSION: No retrocochlear abnormality to explain the patient?s symptoms. Electronically Signed By: Conchis WELLS PA-C [address] [place] [address], [phone], [facility] 02/09/2024 12:48:33 Mri, Brain + Brain Stem, W/wo Contrast : [facility] Accession Number: [id number] Patient Name: Yash Solis Date of : 1990 Date of Exam: 02-05-2024 Referring Physician: Matt Wells [facility] [address], [address] [place], [place] [address] Exam: MR Brain (C-/C+) [facility] [address] Room Description: [place] [employer] Verio 3.0T MR Brain (C-/C+) [facility] [address] INDICATION / CLINICAL QUESTION: Asymmetrical sensorineural hearing loss. Per technologist interview: Patient reports left-sided hearing loss. TECHNIQUE: Multiplanar, multisequence MRI of the brain was performed with and without intravenous contrast. 17 mL Dotarem intravenous contrast was administered. COMPARISON: None. FINDINGS: IAC: There is no mass or abnormal enhancement in the internal auditory canals or cerebellopontine angles. Course and caliber of the 7th and 8th cranial nerves is normal bilaterally. Fluid signal is preserved in the inner ear structures bilaterally. Brainstem demonstrates normal signal. BRAIN and EXTRA-AXIAL SPACES: No significant abnormality of the visualized portions of the brain and extra-axial spaces. EXTRACRANIAL SOFT TISSUES: Visualized portions of the extracranial soft tissues are unremarkable. BONES: Visualized marrow signal is preserved. IMPRESSION: No retrocochlear abnormality to explain the patient?s symptoms. Electronically Signed By: Conchis WELLS PA-C [address] [facility],[address], [address], [facility] - [facility] 02/11/2024 08:49:50 Problems Name Problem SNOMED Code Status Onset Date Resolution Date Notes Provider Name and Address Organization Details Recorded Time Asymmetrical sensorineural hearing loss 790903231 Active 2023 Safia velarde [facility] 4 10:36:52 Sensorineural hearing loss of bilateral ears 307617936 Active 2024 JOANNA JOYA [address] [facility],[place] [address], [place], [address], [facility] 5 11:01:15 Cyst of skin 927322808 Active 2024 EDUARDO TELLO PA-C [address] [facility], [place], [address], [facility] - [facility] 11:42:15 Problem Notes None recorded. Procedures Surgical History Date Name Laterality Status Provider Name and Address Organization Details Recorded Time 10/09/2024 Air & Speech Audio with Tymps - 52307, 55411 & 46595 completed JOANNA JOYA [address] [facility],[place] [address], [place], [address], [facility] - [facility] 10/09/2024 11:01:00 12/24/2023 Comp Audio with Tymps - 48609 & 03101 completed Safia Villalobos [place] [facility] 12/24/2023 10:36:35 Imaging Results None recorded. Procedure Notes None recorded. Medical Equipment None Reported. Allergies Allergen ID Allergen Name Allergen Category Reaction Reaction Severity Criticality Documentation Date Start Date Code Code System Note Provider Name and Address Organization Details Recorded Time 590984 shellfish derived food,medi cation Not available Not available Not available 12/24/2023 86241 UNK Rhiannon velarde [place] - [facility] 10:10:37 Medications Name Sig Start Date Stop [...] Not Available Not Available No t Available epinephrine 0.3 mg/0.3 mL injection, auto-inject or INJECT INTRAMUSC ULARLY DIRECTED ON PACKAGE AND GO TO EMERGENCY ROOM NEEDED FOR ANAPHYLAX IS. CALL 911 AFTER USE active Not Available Not Available No t [...] and Address Organization Details Last Updated DateTime 10/09/2024 180.34 cm 26.4 kg/m2 99416.96 g Mariel Garciabranden [facility] 10/09/2024 11:09:46 Date Recorded Body height Body mass index (BMI) Body weight Provider Name and Address Organization Details Last Updated DateTime 12/24/2023 180.34 cm 24.8 kg/m2 80521.44 g Rhiannon Farnaz [facility] 12/24/2023 11:10:29 Social History None recorded. Functional Status None recorded. Mental Status None recorded. Family History Nothing Reported. Medical History Condition Response Migraines Y Anxiety Y Depression Y Asthma Y Past Encounters Encounter ID Performer Location Encounter Start Date Encounter Closed Date Diagnosis/Indication Diagnosis SNOMED-CT Code Diagnosis ICD10 Code Diagnosis Note [id number] MATT WELLS PA-C [facility] [address] [address] 12/24/2023 09:33:10 12/24/2023 11:25:56 Asymmetrical sensorineural hearing loss 995442714 H90.5 Audiologic al evaluation results: Right ear: Normal sloping to a mild sensorineu ral hearing loss with excellent word recognitio n. Left ear: Normal sloping to a moderate sensorineu ral hearing loss with excellent word recognitio n. Asymmetric SNHL at 3-6k Hz, or 10-30dB, worst in the left. Tympanomet ry: Right Ear:Type A Left Ear:Type A [id number] MATT WELLS PA-C [facility] [address] [address] 02/29/2024 12:58:07 02/29/2024 13:34:02 Asymmetrical sensorineural hearing loss 744395338 H90.5 [id number] EDUARDO TELLO PA-C [facility] [address] [address] 10/09/2024 10:28:37 10/09/2024 11:29:46 Sensorineural hearing loss of bilateral ears 079487070 H90.3 Audiologic al evaluation results: Right ear: Normal through 3 kHz sloping to a moderate sensorineu ral hearing loss with excellent word recognitio n. Left ear: Normal through 3 kHz sloping to moderately severe sensorineu ral hearing loss with excellent word recognitio n. Tympanomet ry: Right Ear:Type A Left Ear:Type A Cyst of skin 987607046 L 72.9 Health Concerns Section Related Observation LastModified by Organization Detai ls LastModified Time None Recorded Concern Status LastModified by Organization Details LastModified Time None Recorded Advance Directives Directive None Recorded Payers Insurance Date Sequence Insurance Name Policy Number Policy Fraser Covered Member ID Fraser Member ID Guarantor Name 10/09/2024 1 [place]: [facility] Yash Solis [id number] Yash Ribera Notes Date Note Type Note Provider Name and Address Organization Details Recorded Time 12/24/2023 text/html 33-year-old male presents for evaluation of tinnitus and hearing loss. He has been having yearly hearing screening at [facility] and was noted to have increasing gap between the left and the right ear. He does not notice this day today. Does not struggle with his hearing but does struggle with the tinnitus, particularly at night when he is trying to fall asleep when it is worse. He does have depression and anxiety. MATT WELLS PA-C [address] [place] [address], [phone], [facility] 12/24/2023 11:35:51 02/29/2024 text/html 33-year-old male presents for MRI review. MRI was reviewed for asymmetric sensorineural hearing loss, left greater than right. Hearing loss was in the higher tones 2 months ago according to office testing. He has had persistent tinnitus but no changes in hearing. ASHWINI CONCEPCION MD [address] [place] [address],[address], [phone], [facility] 03/01/2024 14:10:27 10/09/2024 text/html 33-year-old male with high-frequency sensorineural hearing loss presents for reevaluation of the hearing. He reports hearing is stable since last seen 10 months ago. He is avoiding loud noise exposure. He would like to discuss recurring bump behind his left ear. He has had this for 10 years. He frequently pops this bump. BISHNU DOMINIQUE MD [address] [place] [address], [phone], [facility] - [facility] 10/09/2024 18:06:31
--- OUTSIDE RECORDS SUMMARY | 2024-11-28 11:42 | XMS_ITS | Clinical Summary ---
Author Organization [employer] Address [address] [facility] [address] [place] [address] Care Team Providers Care Marine Photographer Name Role Phone Martina Chowdhury MD Primary [...] or 20/day 100 lozenge 1 4 Active albuterol 108 (90 Base) MCG/ACT inhaler Inhale 2 puffs every 4 (four) hours. 18 g 2 4 Active cetirizine (ZyrTEC) 10 MG tablet TAKE 1 TABLET BY MOUTH EVERY DAY 90 tablet 1 4 Active EPINEPHrine (Epipen) 0.3 MG/0.3ML injection syringe Inject 0.3 mL (0.3 mg) as directed 1 (one) time if needed for anaphylaxis. Inject into upper leg. Call 911 after use. 1 each 1 5 08/16/19 26 Active hydrOXYzine pamoate (Vistaril) 50 MG capsule TAKE 1 CAPSULE BY MOUTH AT BEDTIME NEEDED FOR ANXIETY 90 capsule 1 4 11/15/19 25 Discontinu ed(Other) Active Problems Problem Noted Date Diagnosed Date MDD (major depressive disorder) 11/14/2024 Transaminitis 08/16/2024 Overweight 08/16/2024 Suicidal ideation 07/20/2023 Assessment & Plan (12/29/2023 2:23 PM EDT): PLAN: (check all that apply) Behavioral Health Integration Plan Internal Follow up with [facility] Patient Self Plan Patient to utilize skills provided in intervention , Patient to reach out to [facility] team as needed, Comply with medication , Patient to engage in OP therapy , and Patient to reach out to [facility] as needed Pt was giving with information [...] effects. Currently receiving OP individual therapy at [facility] but he reports not being satisfied [...] Health Integration Plan Internal Follow up with [facility] External OP therapy referral and OP psychiatry Referral Patient Self Plan Patient to utilize skills provided in intervention , Patient to reach out to [facility] team as needed, Comply with medication , Patient to engage in OP therapy , and Patient to reach out to [facility] as needed. Pt is currently connected with a therapist at [facility] and has telehealth sessions weekly. [...] Health Integration Plan Internal Follow up with [facility] Patient Self Plan Patient to utilize skills provided in intervention , Patient to reach out to [facility] team as needed, Patient to engage in OP therapy , and Patient to reach out to [facility] as needed, patient agreed to follow safety plan. Pt is currently connected with a therapist at [facility] and has telehealth sessions weekly. Pt would like to follow-up with [facility] clinician during his next medical appointment. Hearing loss 07/20/2023 FRANK (generalized anxiety disorder) 11/19/2022 Assessment & Plan (12/29/2023 2:23 PM EDT): PLAN: (check all that apply) Behavioral Health Integration Plan Internal Follow up with [facility] Patient Self Plan Patient to utilize skills provided in intervention , Patient to reach out to [facility] team as needed, Comply with medication , Patient to engage in OP therapy , and Patient to reach out to [facility] as needed Pt was giving with information from [facility] (walk-in hours, contact information and address) to [...] effects. Currently receiving OP individual therapy at [facility] but he reports not being satisfied [...] Health Integration Plan Internal Follow up with [facility] External OP BH therapy referral and OP psychiatry Referral Patient Self Plan Patient to utilize skills provided in intervention , Patient to reach out to [facility] team as needed, Comply with medication , Patient to engage in OP therapy , and Patient to reach out to [facility] as needed. Pt is currently connected with a therapist at [facility] and has telehealth sessions weekly. [...] Health Integration Plan Internal Follow up with [facility] Patient Self Plan Patient to utilize skills provided in intervention , Patient to reach out to [facility] team as needed, Patient to engage in OP therapy , and Patient to reach out to [facility] as needed, patient agreed to follow safety plan. Pt is currently connected with a therapist at [facility] and has telehealth sessions weekly. Pt would like to follow-up with [facility] clinician during his next medical appointment. [...] seek support PLAN: 1. Follow up with [facility]: Not recommended for follow-up 2. 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 Hep B not immune to start series today --- -referred to renal dialysis rn for chronic bilateral hearing loss-pd to get apt -labs 11/2022 WBC 4.1<----4.3,ANC 1700 --will repeat CBC in 3 mo if ANC < 1500 will refer to cash management coordinator Assessment & Plan (11/18/2022 9:07 PM EDT): -labs x annual exam will RTC in fasting -pt agreed to have STI testing including HIV to have for baseline -vaccines: s/p COVID-19 x2, today bivalent, Tdap and P20, unsure about HPV vaccine-advise that if interested can get vax at vaccine clinic --- -referred to renal dialysis rn for chronic bilateral hearing loss Mild intermittent [...] him to overcome his struggles. He joined [employer] and reports being highly involved in [employer] activities. He continues seeing his therapist, Rosario, from [facility] [place]. Currently in waiting list with same agency [...] Health Integration Plan Internal Follow up with [facility] Patient Self Plan Patient to utilize skills provided in intervention , Patient to reach out to [facility] team as needed, Comply with medication , Patient to engage in OP therapy , and Patient to reach out to [facility] as needed Pt was giving with information [...] effects. Currently receiving OP individual therapy at [facility] but he reports not being satisfied [...] Health Integration Plan Internal Follow up with [facility] External OP therapy referral and OP psychiatry Referral Patient Self Plan Patient to utilize skills provided in intervention , Patient to reach out to [facility] team as needed, Comply with medication , Patient to engage in OP therapy , and Patient to reach out to [facility] as needed. Pt is currently connected with a therapist at [facility] and has telehealth sessions weekly. [...] Health Integration Plan Internal Follow up with [facility] Patient Self Plan Patient to utilize skills provided in intervention , Patient to reach out to [facility] team as needed, Patient to engage in OP therapy , and Patient to reach out to [facility] as needed, patient agreed to follow safety plan. Pt is currently connected with a therapist at [facility] and has telehealth sessions weekly. Pt would like to follow-up with [facility] clinician during his next medical appointment. [...] pharm clinic at last visit--- from [facility] message pt to be added to their [...] seek support PLAN: 1. Follow up with [facility]: Not recommended for follow-up 2. Patient goal [...] Problem Noted Date Diagnosed Date Resolved Date Viral upper respiratory tract infection 01/25/2024 08/16/2024 Encounters * This document contains information received from the source organization and may not represent a complete record from that organization. Date Type Department Care Team Description 11/14/2024 11:15 AM EDT Office Visit [facility] [address] [place] [phone] Martina Chowdhruy MD Transaminitis (Primary Dx); Healthcare maintenance; Moderate episode of recurrent major depressive disorder (CMS/HCC); FRANK (generalized anxiety disorder); Suicidal ideation; Tobacco abuse 11/14/2024 Travel 11/13/2024 Telephone [facility] [address] [place] [phone] Martina Chowdhury MD chart prep from Last 3 Months Immunizations Immunization Administration Dates Next Due Hep B, adult [...] Passive Smoke Exposure: Current Smokeless Tobacco: Never Tobacco Cessation:Ready to Q uit: Not Asked; Counseling Given: Not Answered Comments:Started smoking since 14 years until now -no daily use ---1PQT a week - aprox 2-3 cigarettes a day- not smoked x 3 years -so far smoking 14 years / PQT year calc 2.1 Alcohol Use Standard Drinks/Week Comments Not Currently 0 (1 standard drink = 0.6 oz pur e alcohol) social Depression Answer Date Recorded Patient Health Questionnaire-9 Score 15 11/17/2024 Patient Health Questionnaire-9 Score 15 11/17/2024 Last PHQ-9: Questionnaire Data Not on file 0 11/17/2024 Housing Stability Answer Date Recorded What is [...] Answer Date Recorded Patient Health Questionnaire-2 Score 6 11/17/2024 Internet Access Answer Date Recorded Internet Access [...] Sign Reading Time Taken Comments Blood Pressure 128/78 11/14/2024 11:33 AM EDT Pulse 73 11/14/2024 11:33 AM EDT Temperature 36.8 C (98.2 F) 11/14/2024 11:33 AM EDT Respiratory Rate 16 11/14/2024 11:33 AM EDT Oxygen Saturation 98% 08/15/2024 11:07 AM EDT Inhaled Oxygen Concentration - - Weight 80.5 kg (177 lb 8 oz) 11/14/2024 11:33 AM EDT Height 180.3 cm (5' 11 ) 11/14/2024 11:33 AM EDT Body Mass Index 24.76 11/14/2024 11:33 AM EDT Plan of Treatment Upcoming Encounters Date Type Department Care Team (Late st Contact Info) Description 2024 9:45 AM EDT Office Visit [facility] [address] [place] [address] [phone] Martina Chowdhury MD [address] [place] [phone] Health Maintenance Due Date Last Done Comments Family Planning (PISQ) 12/02/2003 HPV Vaccines (1 - Male 3-dose series) 12/02/2003 COVID-19 Vaccine ( season) 2024 07/20/2023, 11/18/2022, 05/18/2021, Additional history exists Influenza Vaccine (#1) 2025 03/16/2016, 2015 Depression Monitoring 05/20/2025 11/17/2024, 025 SDOH Screening 08/04/2025 08/04/2024 Alcohol/Substance Use Screening 08/15/2025 08/15/2024 Disability Screening 11/14/2025 11/14/2024 Tobacco Screening 11/14/2025 11/14/2024 Lipid Panel 08/08/2029 08/08/2024, 11/07, 08/14/2020 DTaP/Tdap/Td Vaccines (3 - Td or Tdap) 11/18/2032 11/18/2022, 07/11/2015 Zoster Vaccines (1 of 2) 2038 RSV Patients and Patients Aged 60 years or older (1 - 1-dose 75+ series) 12/02/2063 Pneumococcal Vaccine: Pediatrics (0 to 5 Years) and At-Risk Patients (6 to 49) Years Completed 11/18/2022 Hepatitis B Vaccines Completed 07/20/2023, [...] patient's age to complete this topic Meningococcal B Vaccine Aged Out No l onger eligible based on patient's age to complete [...] Procedure Name Priority Date/Time Associated Diagnosis Comments HEPATITIS C AB W/REFL TO HCV RNA, QN, PCR Routine 08/08/2024 10:44 AM EDT Annual physical exam HIV 1/2 ANTIGEN/ANTIBODY, FOURTH GENERATION W/RFL Routine 08/08/2024 10:44 AM EDT Annual physical exam LIPID PANEL, STANDARD Routine 08/08/2024 10:44 AM EDT Annual physical exam from Last 3 Months or Most Recently Relevant to Health Maintenance Results * Hepatitis C Antibody with Reflex to HCV, RNA, Quantitative, Real-Time PCR (08/08/2024 10:44 AM EDT) Hepatitis C Antibody Nonreactive Nonreactive [facility] Comment:Antibodies to HCV no t detected; does not exclude early acuteHCV infection. Blood Venous blood specimen / Unknown 08/08/2024 10:44 AM EDT 08/08/2024 11:21 AM EDT us Martina Ash MD LAB BLOOD ORDERAB LES Final Result [facility] [address] [place] [phone] * HIV-1/2 Antigen and Antibodies, Fourth Generation, with Reflexes (08/08/2024 10:44 AM EDT) Pathologist [facility] [place] HIV AB/AG Nonreactive Nonreactive [facility] Comment:HIV-1 p24 Ag and/or HIV-1/HIV-2 Ab not detected.A test result that is nonreactive does not exclude thepossibility of exposure to or infection with HIV-1 and/orHIV-2. Nonreactive results in this assay for individualswith prior exposure to HIV-1 and/or HIV-2 may be due toantigen and antibody levels that are below the limit ofdetection of this assay.The [employer] HIV Ag/Ab Combo assay result andsupplemental assay results should be interpreted inconjunction with the patient's clinical presentation,history and other laboratory results. If the results areinconsistent with clinical evidence, additional testing issuggested to confirm the result. Blood Venous blood specimen / Unknown 08/08/2024 10:44 AM EDT 08/08/2024 11:21 AM EDT us Martina Ash MD LAB BLOOD ORDERAB LES Final Result [facility] [address] [place] [address] [phone] * (ABNORMAL) Lipid Panel, Standard (08/08/2024 10:44 AM EDT) Triglycerides 145 <150 mg/dL [facility] Comment:Desirable Triglyceri de: less than 150 mg/dLBorderline High Triglyceride 150-199 mg/dLHigh Triglyceride: 200-499 mg/dLVery High Triglyceride: greater than or equal to 5OO mg/dL Cholesterol 189 <200 mg/dL [facility] Comment:Desirable Cholestero l: less than 200 mg/dLBorderline High Cholesterol: 200-239 mg/dLHigh Cholesterol: greater than 239 mg/dL LDL Cholesterol Calculated 134(H) <100 mg/dL [facility] Comment:Desirable LDL: less than 100 mg/dLNear Optimal/Above Optimal LDL: 110- 129 mg/dLBorderline High LDL: 130-159 mg/dLHigh LDL: 160-189 mg/dLVery High LDL: greater than or equal to 190 mg/dL HDL Cholesterol 26(L) >40 mg/dL [facility] Comment:Desirable HDL: great er than 40 mg/dL Note: This HDL assay may give artificially low results in patients with liver disease. Blood Venous blood specimen / Unknown 08/08/2024 10:44 AM EDT 08/08/2024 11:21 AM EDT us Martina Ash MD LAB BLOOD ORDERAB LES Final Result [facility] [address] [place] [phone] from Last 3 Months or Most Recently Relevant to Health Maintenance [place] [address] [place] [address] C3 Care Teams Marine Photographer Relationship Specialty Start Date End Date Martina Chowdhury MD [address] [place] [phone] PCP - General Internal Medicine 08/25/22
[2024-11-28 12:06] LABS: Alanine Aminotransferase 53 U/L (0-40); Albumin Level 5.0 g/dL (3.5-5.0); Alkaline Phosphatase 85 U/L (39-117); Anion Gap 12 (12-20); Aspartate Amino Transferase 28 U/L (5-37); Blood Urea Nitrogen 11 mg/dL (9-16); Calcium 9.1 mg/dL (8.4-10.2); Carbon Dioxide 29 mmol/L (22-29); Chloride 106 mmol/L (96-108); Estimated Glomerular Filt Rate > 60; Potassium 3.8 mmol/L (3.3-5.1); Sodium 143 mmol/L (135-145); Total Protein 7.6 g/dL (6.5-8.0)
== END 2024-11-28 10:31 | disposition home or self-care (01) ==
LOC: HO.HHCL 10:30
PROVIDERS: PCP Student in an Organized Health Care Education/Training Program; Visit Provider Student in an Organized Health Care Education/Training Program
DX: R74.01 Elevation of levels of liver transaminase levels (principal)
CPT/HCPCS: 36415; 80053

== ENCOUNTER 2025-01-24 09:53 | Outpatient (REF) | payer MEDICAID, SELFPAY ==
--- NOTE | ~2025-01-24 | US_ITS ---
EXAMINATION: US ABDOMEN HISTORY: Transaminitis TECHNIQUE: Real-time grayscale ultrasound imaging of the abdomen was performed and images were reviewed. COMPARISON: There are no prior studies available for comparison. FINDINGS: Liver: The right lobe of the liver measures 13.3 cm in size. The left lobe of the liver measures 8.8 cm in size. The liver demonstrates normal homogeneous echotexture. No focal mass or intrahepatic biliary ductal dilatation is identified. There is normal hepatopedal flow in the portal vein. Gallbladder and biliary tree: The gallbladder is unremarkable, without evidence of calculi, wall thickening, or pericholecystic fluid. There is no sonographic Gloria sign. The common bile duct is normal in caliber measuring 3 mm. Kidneys: The right kidney measures 10.6 cm in length. The left kidney measures 10.7 cm in length. The kidneys are unremarkable, without evidence of masses, hydronephrosis, or calculi. Pancreas: The pancreatic head, neck, and body are unremarkable. The pancreatic tail is obscured by bowel gas. Spleen: The spleen is normal in size and contour, measuring 8.6 cm in length. Abdominal aorta and inferior vena cava: The visualized portions of the abdominal aorta and inferior vena cava are normal in caliber. There is no free fluid in the abdomen. US/US abdomen complete IMPRESSION: Unremarkable abdominal ultrasound. Electronically signed by: Karel Singh MD 01/24/2025 12:07 PM EDT
--- OUTSIDE RECORDS SUMMARY | 2025-01-24 11:46 | XMS_ITS | Encounter Summary ---
Author Organization [employer] Address [address] [facility] 7 [place] [address] Care Team Providers Care Bunker Worker Name Role Phone Martina Chowdhury MD Primary Care Pro vider Reason for Visit * Reason Comments Med Refill Encounter Details Date Type Department Care Team (Late st Contact Info) Description 11/18/2022 Refill [facility] [address] [place], [place] [phone] Martina Chowdhury MD [address] [place] [address] Social History Tobacco Use Types Packs/Day Years [...] AM EDT documented as of this encounter Functional Status * Over the past 2 weeks, how often have you been bothered by any of the following problems? Question Answer Date of Assessment Author Patient Health Questionnaire -2 Score 2 11/18/2022 2:11 PM EDT Marilyn Beth MA * If you checked off any problems on this questionnaire so far, Question Answer Date of Assessment Author How difficult have these problems made it for you to do your work, take care of things at home, or get along with other people? Somewhat difficult 11/18/2022 2:11 PM EDT Marilyn Beth MA * Over the last 2 weeks, how often have you been bothered by any of the following problems? Question Answer Date of Assessment Author Feeling nervous, anxious, or on edge 3 11/07 8:57 AM EDT Lonnie Samuels Not being able to stop or co ntrol worrying 3 11/19/2022 8:57 AM EDT Lonnie Samuels Worrying too much about diff erent things 3 11/19/2022 8:57 AM EDT Lonnie Samuels Trouble relaxing 3 11/19/2022 8:57 AM EDT Lonnie Cohen Being so restless that it is hard to sit still 3 11/19/2022 8:57 AM EDT Lonnie Samuels Becoming easily annoyed or irritable 3 11/07 8:57 AM EDT Lonnie Samuels Feeling afraid as if somethi ng awful might happen 3 11/19/2022 8:57 AM EDT Lonnie Samuels FRANK-7 Total Score 21 11/19/2022 8:57 AM SANJUANITAT Lonnie Samuels * Over the past 2 weeks, how often have you been bothered by any of the following problems? Question Answer Date of Assessment Author Little interest or pleasure in doing things Several days 11/18/2022 2:11 PM EDT Enid Beth MA Feeling down, depressed, or hopeless Several days 11/18/2022 2:11 PM SANJUANITAT Marilyn Beth MA Trouble falling or staying asleep, or sleeping too much Nearly every day 11/18/2022 2:11 PM SANJUANITAT Marilyn Beth MA Feeling tired or having little energy Several days 11/18/2022 2:11 PM SANJUANITAT Marilyn Beth MA Poor appetite or overeating Several days 11/18/2022 2:11 PM SANJUANITAT Marilyn Beth MA Feeling bad about yourself - or that you are a failure or have let yourself or your family down Several days 11/18/2022 2:11 PM EDT Marilyn Beth MA Trouble concentrating on things, such as reading the newspaper or watching television Several days 11/18/2022 2:11 PM EDT Marilyn Beth MA Moving or speaking so slowly that other people could have noticed? Or the opposite - being so fidgety or restless that you have been moving around a lot more than usual. Not at all 11/18/2022 2:11 PM EDT Marilyn Beth MA Thoughts that you would be better off or hurting yourself in some way More than half the days 11/18/2022 2:11 PM EDT Marilyn Beth MA Patient Health Questionnaire-9 Score 11 11/18/2022 2:11 PM EDT Luis Beth MA documented as of this encounter Plan of Treatment Upcoming Encounters Date Type Department Care Team (Late st Contact Info) Description 01/31/2025 10:45 AM EDT Office Visit [facility] [address] [place] [phone] Martina Chowdhury MD [address] [place] [phone] documented as of this encounter Visit Diagnoses Not on filedocumented in this encounter Additional Health Concerns Assessment Noted Time PHQ-9 Depression Total Score: 023 2:11 PM EDT documented as of this encounter Care Teams Bunker Worker Relationship Specialty Start Date End Date Martina Chowdhury MD [address] [place] [phone] PCP - General Internal Medicine 08/25/22 documented as of this encounter
--- OUTSIDE RECORDS SUMMARY | 2025-01-24 11:46 | XMS_ITS | Encounter Summary ---
Author Organization [employer] Address [address] [facility] 7t [place] [address] Care Team Providers Care Financial Reporting Analyst Name Role Phone Martina Chowdhury MD Primary Care Pro vider Encounter Details Date Type Department Care Team (Latest Contact Info) Description 11/28/2024 Results Follow-Up [facility] [address] [place], [place] [phone] Martina Chowdhury MD [address] [place] [address] Comprehensive Metabolic Panel Social History Tobacco Use Types Packs/Day Years [...] Answer Date Recorded Patient Health Questionnaire-9 Score 17 2024 Patient Health Questionnaire-9 Score 17 2024 Last PHQ-9: Questionnaire Data Not on file 0 2024 Housing Stability Answer Date Recorded What is [...] Answer Date Recorded Patient Health Questionnaire-2 Score 4 2024 Internet Access Answer Date Recorded Internet Access [...] Assessment Author Patient Health Questionnaire -2 Score 4 2024 10:52 AM EDT Marilyn Beth MA * Little interest or pleasure in doing things Answer Date of Assessment Author More than half the days 2024 10:52 AM SANJUANITAT Marilyn Beth MA * Feeling down, depressed, or hopeless Answer Date of Assessment Author More than half the days 2024 10:52 AM Marilyn Conway MA * Trouble falling or staying asleep, or sleeping too much Answer Date of Assessment Author Nearly every day 2024 10:52 AM Marilyn Conway MA * Feeling tired or having little energy Answer Date of Assessment Author Several days 2024 10:52 AM Marilyn Conway MA * Poor appetite or overeating Answer Date of Assessment Author More than half the days 2024 10:52 AM Marilyn Conway MA * Feeling bad about yourself - or that you are a failure or have let yourself or your family down Answer Date of Assessment Author More than half the days 2024 10:52 AM Marilyn Conway MA * Trouble concentrating on things, such as reading the newspaper or watching television Answer Date of Assessment Author More than half the days 2024 10:52 AM Marilyn Conway MA * Moving or speaking so slowly that other people could have noticed? Or the opposite - being so fidgety or restless that you have been moving around a lot more than usual. Answer Date of Assessment Author More than half the days 2024 10:52 AM Marilyn Conway MA * Thoughts that you would be better off or hurting yourself in some way Answer Date of Assessment Author Several days 2024 10:52 AM Marilyn Conway MA * Patient Health Questionnaire-9 Score Answer Date of Assessment Author 17 2024 10:52 AM Marilyn Conway MA * How difficult have these problems made it for you to do your work, take care of things at home, or get along with other people? Answer Date of Assessment Author Very difficult 2024 10:52 AM Marilyn Conway MA * Over the last 2 weeks, how often have you been bothered by any of the following problems? Question Answer Date of Assessment Author Feeling nervous, anxious, or on edge 3 2024 10:52 AM Marilyn Conway MA Not being able to stop or co ntrol worrying 2 2024 10:52 AM Marilyn Conway MA Worrying too much about diff erent things 3 2024 10:52 AM Marilyn Conway MA Trouble relaxing 2 2024 10:52 AM Marilyn Conway MA Being so restless that it is hard to sit still 2 2024 10:52 AM Marilyn Conway MA Becoming easily annoyed or irritable 2 2024 10:52 AM EDT Marilyn Beth MA Feeling afraid as if somethi ng awful might happen 2 2024 10:52 AM EDT Marilyn Beth MA FRANK-7 Total Score 16 2024 10:52 AM EDT Marilyn Beth MA documented as of this encounter Miscellaneous Notes * Result Encounter Note - Martina Ash MD - 11/28/2024 12:37 PM EDT Please call patient to advise to come to already scheduled apt with me to go over abnormal labs Thanks documented in this encounter Plan of Treatment Upcoming Encounters Date Type Department Care Team (Late st Contact Info) Description 01/31/2025 10:45 AM EDT Office Visit [facility] [address] [place] [address] Martina Chowdhury MD [address] [place] [phone] documented as of this encounter Goals Goal Patient Goal Type Associated Problems Recent Progress Patient-Stated? Author Smoking cessation General No Federico Dow Note: Utilize NRT to achieve smoking cessation. documented as of this encounter Visit Diagnoses Not on filedocumented in this encounter Additional Health Concerns Assessment Noted Time PHQ-9 Depression Total Score: 15 11/17/ 025 11:00 AM EDT documented as of this encounter Care Teams Financial Reporting Analyst Relationship Specialty Start Date End Date Martina Chowdhury MD [address] [place] [address] PCP - General Internal Medicine 08/25/22 documented as of this encounter
--- OUTSIDE RECORDS SUMMARY | 2025-01-24 11:46 | XMS_ITS | Clinical Summary ---
Author Organization [employer] Address [address] [place] [address] Care Team Providers Care Apprentice Carpenter Name Role Phone Martina Chowdhury MD Primary [...] lozenges/6 HRS or 20/day 100 lozenge 1 01/25/2024 Active albuterol 108 (90 Base) MCG/ACT inhaler Inhale 2 puffs every 4 (four) hours. 18 g 2 01/25/2024 Active cetirizine (ZyrTEC) 10 MG tablet TAKE 1 TABLET BY MOUTH EVERY DAY 90 tablet 1 02/02/2024 Active EPINEPHrine (Epipen) 0.3 MG/0.3ML injection syringe Inject 0.3 mL (0.3 mg) as directed 1 (one) time if needed for anaphylaxis. Inject into upper leg. Call 911 after use. 1 each 1 08/15/2024 08/16/19 26 Active escitalopram (Lexapro) 10 MG tablet Take 1 tablet by mouth Once per day. 11/15/2024 Active mirtazapine (Remeron) 15 MG tablet Take 15 mg by mouth at bedtime. 11/15/2024 Active Active Problems Problem Noted Date Diagnosed Date MDD (major depressive disorder) 11/14/2024 Transaminitis 08/16/2024 Overweight 08/16/2024 Suicidal ideation 07/20/2023 Assessment & Plan (12/29/2023 2:23 PM EDT): PLAN: (check all that apply) Behavioral Health Integration Plan Internal Follow up with [facility] Patient Self Plan Patient to utilize skills provided in intervention , Patient to reach out to [facility] team as needed, Comply with medication , Patient to engage in OP therapy , and Patient to [facility] to [facility] as needed Pt was giving [...] effects. Currently receiving OP individual therapy at [facility] but he reports not being satisfied [...] Health Integration Plan Internal Follow up with [facility] External OP therapy referral and OP psychiatry Referral Patient Self Plan Patient to utilize skills provided in intervention , Patient to reach out to [facility] team as needed, Comply with medication , Patient to engage in OP therapy , and Patient to [facility] to [facility] as needed. Pt is currently connected with a therapist at [facility] and has telehealth sessions weekly. [...] Health Integration Plan Internal Follow up with [facility] Patient Self Plan Patient to utilize skills provided in intervention , Patient to reach out to [facility] team as needed, Patient to engage in OP therapy , and Patient to reach out to [facility] as needed, patient agreed to follow safety plan. Pt is currently connected with a therapist at [facility] and has telehealth sessions weekly. Pt would like to follow-up with [facility] clinician during his next medical appointment. Hearing loss 07/20/2023 FRANK (generalized anxiety disorder) 11/19/2022 Assessment & Plan (12/29/2023 2:23 PM EDT): PLAN: (check all that apply) Behavioral Health Integration Plan Internal Follow up with [facility] Patient Self Plan Patient to utilize skills provided in intervention , Patient to reach out to [facility] team as needed, Comply with medication , Patient to engage in OP therapy , and Patient to reach out to [facility] as needed Pt was giving with information from [facility] (walk-in hours, contact information and address) to [...] effects. Currently receiving OP individual therapy at [facility] but he reports not being satisfied [...] Health Integration Plan Internal Follow up with [facility] External OP therapy referral and OP psychiatry Referral Patient Self Plan Patient to utilize skills provided in intervention , Patient to reach out to [facility] team as needed, Comply with medication , Patient to engage in OP therapy , and Patient to reach out to [facility] as needed. Pt is currently connected with a therapist at [facility] and has telehealth sessions weekly. [...] Health Integration Plan Internal Follow up with [facility] Patient Self Plan Patient to utilize skills provided in intervention , Patient to reach out to [facility] team as needed, Patient to engage in OP therapy , and Patient to reach out to [facility] as needed, patient agreed to follow safety plan. Pt is currently connected with a therapist at [facility] and has telehealth sessions weekly. Pt would like to follow-up with [facility] clinician during his next medical [...] support PLAN: 1. Follow up with [facility]: Not recommended for follow-up 2. 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 Hep B not immune to start series today --- -referred to spring up supervisor for chronic bilateral hearing loss-pd to get apt -labs 11/2022 WBC 4.1<----4.3,ANC 1700 --will repeat CBC in 3 mo if ANC < 1500 will refer to liberal arts and humanities chair Assessment & Plan (11/18/2022 9:07 PM EDT): -labs x annual exam will RTC in fasting -pt agreed to have STI testing including HIV to have for baseline -vaccines: s/p COVID-19 x2, today bivalent, Tdap and P20, unsure about HPV vaccine-advise that if interested can get vax at vaccine clinic --- -referred to spring up supervisor for chronic bilateral hearing loss Mild intermittent [...] will prescribe combination w LABA -DANIELA prn Resolved Problems Problem Noted Date Diagnosed Date Resolved Date Viral upper respiratory tract infection 01/25/2024 08/16/2024 Encounters * This document contains information received from the source organization and may not represent a complete record from that organization. Date Type Department Care Team Description 01/24/2025 Travel 2024 9:45 AM EDT Office Visit [facility] [address] [place] [address] Martina Chowdhury MD Transaminitis (Primary Dx); Healthcare maintenance; Severe episode of recurrent major depressive disorder, without psychotic features (CMS/HCC); Tobacco abuse 2024 Travel 11/30/2024 Telephone [facility] [address] [place] [phone] Martina Chowdhury MD chartprep 11/30/2024 Travel 11/28/2024 Results Follow-Up [facility] [address] [place] [address] Martina Chowdhury MD Comprehensive Metabolic Panel 11/14/2024 11:15 AM EDT Office Visit [facility] [address] [place] [phone] Martina Chowdhury MD Transaminitis (Primary Dx); Healthcare maintenance; Moderate episode of recurrent major depressive disorder (CMS/HCC); FRANK (generalized anxiety disorder); Suicidal ideation; Tobacco abuse 11/14/2024 Travel 11/13/2024 Telephone [facility] [address] [place] [phone] Martina Chodwhury MD chart prep from Last 3 Months [...] Sign Reading Time Taken Comments Blood Pressure 122/78 2024 10:51 AM EDT Pulse 66 2024 10:51 AM EDT Temperature 36.3 C (97.3 F) 2024 10:51 AM EDT Respiratory Rate 20 2024 10:51 AM EDT Oxygen Saturation 99% 2024 10:51 AM EDT Inhaled Oxygen Concentration - - Weight 79 kg (174 lb 3.2 oz) 2024 10:51 AM EDT Height 180.3 cm (5' 11 ) 2024 10:51 AM EDT Body Mass Index 24.3 2024 10:51 AM EDT Plan of Treatment Upcoming Encounters Date Type Department Care Team ([facility] st Contact Info) Description 01/31/2025 10:45 AM EDT Office Visit [facility] [address], [place] [phone] Martina Chowdhury MD [address] [place], [place] [phone] Health Maintenance Due Date Last Done Comments Family Planning (PISQ) 12/02/2003 HPV Vaccines (1 - Male 3-dose series) 12/02/2003 COVID-19 Vaccine ( season) 2025 07/20/2023, 11/18/2022, 05/18/2021, Additional history exists Influenza Vaccine (#1) 2025 03/16/2016, 2015 Depression Monitoring 06/03/2025 2024, 025 SDOH Screening 08/04/2025 08/04/2024 Alcohol/Substance Use Screening 08/15/2025 08/15/2024 Disability Screening 11/30/2025 11/30/2024 Tobacco Screening 2025 2024 Lipid Panel 08/08/2029 08/08/2024, 11/07, 08/14/2020 DTaP/Tdap/Td [...] Procedure Name Priority Date/Time Associated Diagnosis Comments AMB REFERRAL TO ENT Routine 01/15/2025 Tinnitus of both ears COMPREHENSIVE METABOLIC PANEL Routine 11/28/2024 10:47 AM EDT Transaminitis HEPATITIS C AB W/REFL TO HCV RNA, QN, PCR Routine 08/08/2024 10:44 AM EDT Annual physical exam HIV 1/2 ANTIGEN/ANTIBODY, FOURTH GENERATION W/RFL Routine 08/08/2024 10:44 AM EDT Annual physical exam LIPID PANEL, STANDARD Routine 08/08/2024 10:44 AM EDT Annual physical exam from Last 3 Months or Most Recently Relevant to Health Maintenance Results * Referral to ENT (01/15/2025) us Martina Ash MD OUTPATIENT REFERR AL ORDERABLES Final Result * (ABNORMAL) Comprehensive Metabolic Panel (11/28/2024 10:47 AM EDT) Sodium 143 135 - 145 mmol/L [facility] Potassium 3.8 3.3 - 5.1 mmol/L [facility] Chloride 106 96 - 108 mmol/L [facility] Carbon Dioxide 29 22 - 29 mmol/L [facility] Anion Gap 12 12 - 20 [facility] Urea Nitrogen (BUN) 11 9 - 16 mg/dL [facility] Creatinine, Serum 0.90 0.5 - 1.4 mg/dL [facility] Estimated Glomerular Filt Rate >60 [facility] Comment:Chronic Kidney Disea se: Estimated GFR < 60 mL/min/1.33e9Fmosov Kidney Disease: Estimated GFR < 15 mL/min/1.73m2 Glucose 81 60 - 115 mg/dL [facility] Calcium 9.1 8.4 - 10.2 mg/dL [facility] Bilirubin, Total 0.5 0.0 - 1.0 mg/dL [facility] Aspartate Amino Transferase 28 5 - 37 U/L [facility] Alanine Aminotransferase 53(H) 0 - 40 U/L [facility] Total Protein 7.6 6.5 - 8.0 g/dL [facility] Albumin Level 5.0 3.5 - 5.0 g/dL [facility] Alkaline Phosphatase 85 39 - 117 U/L [facility] Blood Venous blood specimen / Unknown 11/28/2024 10:47 AM EDT 11/28/2024 11:22 AM EDT us Martina Ash MD LAB BLOOD ORDERAB LES Final Result Performing Organization Address City/[facility]/ZIP Co de Phone Number [facility] [address] [place] [phone] * Hepatitis C Antibody with Reflex to HCV, RNA, Quantitative, Real-Time PCR (08/08/2024 10:44 AM EDT) Hepatitis C Antibody Nonreactive Nonreactive [facility] Comment:Antibodies to HCV no t detected; does not exclude early acuteHCV infection. Blood Venous blood specimen / Unknown 08/08/2024 10:44 AM EDT 08/08/2024 11:21 AM EDT Martina Ash MD LAB BLOOD ORDERAB LES Final Result [facility] [address] [place] [phone] * HIV-1/2 Antigen and Antibodies, Fourth Generation, with Reflexes (08/08/2024 10:44 AM EDT) HIV AB/AG Nonreactive Nonreactive [facility] Comment:HIV-1 p24 Ag and/or HIV-1/HIV-2 Ab not detected.A test result that is nonreactive does not exclude thepossibility of exposure to or infection with HIV-1 and/orHIV-2. Nonreactive results in this assay for individualswith prior exposure to HIV-1 and/or HIV-2 may be due toantigen and antibody levels that are below the limit ofdetection of this assay.The [employer] HIV Ag/Ab Combo assay result andsupplemental assay results should be interpreted inconjunction with the patient's clinical presentation,history and other laboratory results. If the results areinconsistent with clinical evidence, additional testing issuggested to confirm the result. Blood Venous blood specimen / Unknown 08/08/2024 10:44 AM EDT 08/08/2024 11:21 AM EDT us Martina Ash MD LAB BLOOD ORDERAB LES Final Result Performing Organization Address [facility] Co de Phone Number [facility] [address] [place] [phone] * (ABNORMAL) Lipid Panel, Standard (08/08/2024 10:44 AM EDT) Triglycerides 145 <150 mg/dL [facility] Comment:Desirable Triglyceri de: less than 150 mg/dLBorderline High Triglyceride 150-199 mg/dLHigh Triglyceride: 200-499 mg/dLVery High Triglyceride: greater than or equal to 5OO mg/dL Cholesterol 189 <200 mg/dL [facility] Comment:Desirable Cholestero l: less than 200 mg/dLBorderline High Cholesterol: 200-239 mg/dLHigh Cholesterol: greater than 239 mg/dL LDL Cholesterol Calculated 134(H) <100 mg/dL [facility] Comment:Desirable LDL: less than 100 mg/dLNear Optimal/Above Optimal LDL: 110- 129 mg/dLBorderline High LDL: 130-159 mg/dLHigh LDL: 160-189 mg/dLVery High LDL: greater than or equal to 190 mg/dL HDL Cholesterol 26(L) >40 mg/dL [facility] Comment:Desirable HDL: great er than 40 mg/dL Note: This HDL assay may give artificially low results in patients with liver disease. Blood Venous blood specimen / Unknown 08/08/2024 10:44 AM EDT 08/08/2024 11:21 AM EDT Martina Ash MD LAB BLOOD ORDERAB LES Final Result [facility] [address] [place] [phone] from Last 3 Months or Most Recently Relevant to Health Maintenance Insurance [address] [place], [place] [address] Care Teams Apprentice Carpenter Relationship Specialty Start Date End Date Martina Chowdhury MD [address] [place] [phone] PCP - General Internal Medicine 08/25/22
--- OUTSIDE RECORDS SUMMARY | 2025-01-24 11:46 | XMS_ITS | Encounter Summary ---
Author Organization [employer] Address [address] [place] [address] Care Team Providers Care Career Resource Technician Name Role Phone Martina Chowdhury MD Primary Care Pro vider Encounter Details Date Type Department Care Team (Latest Contact Info) Description 01/24/2025 Travel Social History Tobacco Use Types Packs/Day [...] Description 01/31/2025 10:45 AM EDT Office Visit [facility] [address] [place] [phone] Martina Chowdhury MD [address] [place] [address] [phone] documented as of this encounter Goals Goal Patient Goal Type Associated Problems Recent Progress Patient-Stated? Author Smoking cessation General No Federico Dow Note: Utilize NRT to achieve smoking cessation. documented as of this encounter Visit Diagnoses Not on filedocumented in this encounter Additional Health Concerns Assessment Noted Time PHQ-9 Depression Total Score: 17 025 10:52 AM EDT documented as of this encounter Care Teams Career Resource Technician Relationship Specialty Start Date End Date Martina Chowdhury MD [address] [place] [address] [phone] PCP - General Internal Medicine 08/25/22 documented as of this encounter
== END 2025-01-24 09:54 | disposition home or self-care (01) ==
LOC: HO.US 09:53
PROVIDERS: PCP Student in an Organized Health Care Education/Training Program; Visit Provider Student in an Organized Health Care Education/Training Program
DX: R74.01 Elevation of levels of liver transaminase levels (principal)
CPT/HCPCS: 76700

== ENCOUNTER → 2025-01-24 09:54 | Outpatient (BNV) | payer MEDICAID, SELFPAY | PROVIDERS: PCP Student in an Organized Health Care Education/Training Program; Visit Provider Radiology Diagnostic Radiology | DX: R74.01 Elevation of levels of liver transaminase levels (principal) | CPT/HCPCS: 76700 ==

== ENCOUNTER → 2025-03-19 11:16 | Outpatient (REF) | payer MEDICAID, SELFPAY ==
--- NOTE | 2025-03-19 | HM_ITS ---
* Total monitoring time 3 days. * Underlying rhythm is sinus with an average rate of 82/Min. * Rare supraventricular ectopy. * Rare ventricular ectopy. * No significant pauses or high-grade AV blocks. * No patient markers or diary events. MTDD
--- OUTSIDE RECORDS SUMMARY | 2025-03-19 13:35 | XMS_ITS | Data Portability ---
Author Organization [place] - [facility], Allergy Address [address] [address] Care Team Providers Care Primer Supervisor Name Role Phone KELSIE ELIAS Primary Care [...] 10 years. [email or web address] Not available 10/09/2024 12:23:17 01/15/2025 01/15/2025 Left ear is demonstrating what appears to be a sebaceous cyst or epidermal inclusion cyst involving the postauricular crease. This has been consistently bothersome for him in terms of enlargement and drainage. Recommend surgical removal under brief general anesthetic. Risks and benefits of surgery discussed including risk of bleeding, infection, or recurrence of disease. Patient would like to proceed with surgery. We will begin the scheduling process and see him back at the time of surgery. [email or web address] Not available 01/15/2025 11:46:18 Plan of Treatment Reminders Order Date Submit Date Provider Last Modified By Organization Details Last Modified Time Details Appointments Post Op 2024 03:00P M ALIREZA DA SILVA Not available Not available Not available Lab None recorded. Referral None recorded. Procedures None recorded. Surgeries excision, sebaceous cyst (SURG) 2024 025 [email or web address] Not available 01/22/2025 13:42:41 Imaging MRI, internal auditory canal, w/wo contrast 2023 024 [email or web address] [facility] ([facility]), [address] [place], [address], 02/02/2024 10:50:15 Medication Orders None recorded. Patient TargetsNo targets recorded. Patient InstructionsNo instructions recorded. Reason for Referral None Reported. Results Created Date Observation Date Name Description Value Unit Range Abnormal Flag Note LastModifiedBy Organization Detail LastModifiedTime 12/27/19 audio gram No observ ation record ed. BARCODE Not Available 2023 14:05:54 02/08/20 24 02/05/2024 MRI, brain + brain stem, w/wo contr ast [facility] Access ion Number : [id number] Juan neal Name: Yash Solis Record Number : [id number] Date of : 1990 Date of Exam: 2023 Referr ing Physic daniel: Matt Pabon [facility] of [facility] d [address], [address] [facility] s [address] Exam: MR Brain (C-/C+ ) CPT 16881 Room Descri ption: [facility] Verio 3.0T MR Brain (C-/C+ ) CPT 76150 INDICA TION / CLINIC AL QUESTI ON: Asymme trical sensor ineura l hearin g loss. Per techno logist interv iew: Juan neal report s left-s ided hearin g loss. TECHNI QUE: Multip lanar, multis equenc e MRI of the brain was perfor med with and withou t intrav enous contra st. 17 mL Dotare m intrav enous contra st was admini stered . COMPAR NERY: None. FINDIN GS: IAC: There is no mass or abnorm al enhanc ement in the mba internship al audito ry canals or cerebe llopon [...] ms. Electr onical ly Signed By: Clair [email or web address] [place] [address] [facility] ([facility]) [address], [place], [address], 02/09/2024 12:48:33 02/08/20 24 02/05/2024 MRI, inter nal audit ory canal , w/wo contr ast No observ ation record ed. [email or web address] [facility] [address], [place], [address], 02/09/2024 12:48:43 02/10/20 24 02/05/2024 MRI, brain + brain stem, w/wo contr ast [facility] Access ion Number : [id number] Juan neal Name: Yash Solis Record Number : [id number] Date of : 1990 Date of Exam: 2023 Referr ing Physic daniel: Matt Pabon [facility] d [address], [address] [facility], [place] gutierrez [place] [address] Exam: MR Brain (C-/C+ ) CPT 30101 Room Descri ption: [facility] Verio 3.0T MR Brain (C-/C+ ) CPT 40433 INDICA TION / CLINIC AL QUESTI ON: [...] or abnorm al enhanc ement in the mba internship al audito ry canals or cerebe llopon [...] onical ly Signed By: Clair Contreras MD [email or web address] [facility] ([facility]) [address] [place], [address], 02/11/2024 08:49:50 10/10/19 25 audio gram No observ ation record ed. BARCODE Not Available 2024 13:54:58 Result Notes Documentation Provider Name and Address Organization Details Recorded Time Mri, Brain + Brain Stem, W/wo Contrast : [facility] Accession Number: [id number] Patient Name: Yash Solis Date of : 1990 Date of Exam: 02-05-2024 Referring Physician: Matt Wells [facility] 100 [facility], [address] [place], [place] [address] Exam: MR Brain (C-/C+) CPT 54931 Room Description: [facility] 3.0T MR Brain (C-/C+) CPT 95736 INDICATION / CLINICAL QUESTION: Asymmetrical sensorineural hearing [...] Electronically Signed By: Conchis WELLS PA-C 100 [facility] [address], [place], [address], [place] - [facility] 02/09/2024 12:48:33 Mri, Brain + Brain Stem, W/wo Contrast : [facility] Accession Number: [id number] Patient Name: Yash Solis Date of : 1990 Date of Exam: 02-05-2024 Referring Physician: Matt Wells [facility] [address] [facility], [address] [place], [place] [address] Exam: MR Brain (C-/C+) CPT 28757 Room Description: [facility] 3.0T MR Brain (C-/C+) CPT 82922 INDICATION / CLINICAL QUESTION: Asymmetrical sensorineural hearing [...] symptoms. Electronically Signed By: Conchis WELLS PA-C [address] [place] [address], [address], [facility] - [facility] 02/11/2024 08:49:50 Problems Name Problem SNOMED Code Status Onset Date Resolution Date Notes Provider Name and Address Organization Details Recorded Time Asymmetrical sensorineural hearing loss 766534510 Active 2023 Safia velarde [place] - [facility] [place] 4 10:36:52 Sensorineural hearing loss of bilateral ears 345733489 Active 2024 CHRISTIANO WEBB , [facility] [address] [address], [facility] [place], [address], [facility] - [facility] 5 11:01:15 Cyst of skin 221798443 Active 2024 EDUARDO TELLO PA-C [address] [address], [place], [address], [place] - [facility] 5 11:42:15 Problem Notes None recorded. Procedures Surgical History Date Name Laterality Status Provider Name and Address Organization Details Recorded Time 10/09/2024 Air & Speech Audio with Tymps - 70661, 43364 & 46299 completed CHRISTIANO WEBB, AUD [address] [facility] [address], [place], [address], [place] - [facility] 10/09/2024 11:01:00 12/24/2023 Comp Audio with Tymps - 59542 & 19090 completed Safia Villalobos [place] - [facility] 12/24/2023 10:36:35 Imaging Results None recorded. Procedure Notes None recorded. Medical Equipment None Reported. Allergies Allergen ID Allergen Name Allergen Category Reaction Reaction Severity Criticality Documentation Date Start Date Code Code System Note Provider Name and Address Organization Details Recorded Time 317980 shellfish derived food,medi cation Not available Not available Not available 12/24/2023 Rhiannon velarde [facility] 4 10:10:37 Medications Name Sig Start Date Stop [...] Not Available Not Available No t Available mirtazapine 15 mg tablet TAKE 1 TABLET BY MOUTH EVERY DAY AT NIGHT active Not Available Not Available No t [...] Not Available Not Available No t Available escitalopra m 10 mg tablet TAKE 1 TABLET BY MOUTH EVERY DAY active Not Available Not Available No [...] Updated DateTime 10/09/2024 180.34 cm 26.4 kg/m2 82892.96 g Mariel Johnson [place] - [facility] 10/09/2024 11:09:46 Date Recorded Body height Body mass index (BMI) Body weight Provider Name and Address Organization Details Last Updated DateTime 12/24/2023 180.34 cm 24.8 kg/m2 09819.44 g Rhiannon Osei [facility] 12/24/2023 11:10:29 Social History None recorded. Functional Status None recorded. Mental Status None recorded. Family History Nothing Reported. Medical History Condition Response Depression Y Anxiety Y Migraines Y Asthma Y Past Encounters Encounter ID Performer Location Encounter Start Date Encounter Closed Date Diagnosis/Indication Diagnosis SNOMED-CT Code Diagnosis ICD10 Code Diagnosis IMO Codes Diagnosis Note [id number] MATT WELLS PA-C [facility] [address] [address] 12/24/2023 09:33:10 12/24/2023 11:25:56 Asymmetrical sensorineural hearing loss 059702927 H90.5 Audiologic al evaluation results: Right ear: Normal sloping to a mild sensorineu ral hearing loss with excellent word recognitio n. Left ear: Normal sloping to a moderate sensorineu ral hearing loss with excellent word recognitio n. Asymmetric SNHL at 3-6k Hz, or 10-30dB, worst in the left. Tympanomet ry: Right Ear:Type A Left Ear:Type A [id number] MATT WELLS PA-C [facility] [address] [address] 02/29/2024 12:58:07 02/29/2024 13:34:02 Asymmetrical sensorineural hearing loss 982574019 H90.5 [id number] EDUARDO TELLO PA-C [facility] [address] [address] 10/09/2024 10:28:37 10/09/2024 11:29:46 Sensorineural hearing loss of bilateral ears 702222239 H90.3 [id number] Audiologic al evaluation results: Right ear: Normal through 3 kHz sloping to a moderate sensorineu ral hearing loss with excellent word recognitio n. Left ear: Normal through 3 kHz sloping to moderately severe sensorineu ral hearing loss with excellent word recognitio n. Tympanomet ry: Right Ear:Type A Left Ear:Type A Cyst of skin 431837189 L 72.9 32150 [id number] ASHWINI CONCEPCION MD [facility] [address] [address] 01/15/2025 10:54:05 01/15/2025 11:46:50 Cyst of skin 675600916 L72.9 43411 Health Concerns Section Related Observation LastModified by Organization Detai ls LastModified Time None Recorded Concern Status LastModified by Organization Details LastModified Time None Recorded Advance Directives Directive None Recorded Payers Insurance Date Sequence Insurance Name Policy Number Policy Fraser Covered Member ID Fraser Member ID Guarantor Name 02/23/2025 1 [place]: [facility] Yash Solis [id number] Yash Ribera Notes Date Note Type Note Provider Name and Address Organization Details Recorded Time 12/24/2023 text/html ROS as noted in the [facility] 33-year-old male presents for evaluation of tinnitus and hearing loss. He has been having yearly hearing screening at [facility] and was noted to have increasing gap between the left and the right ear. He does not notice this day today. Does not struggle with his hearing but does struggle with the tinnitus, particularly at night when he is trying to fall asleep when it is worse. He does have depression and anxiety. MATT WELLS PA-C 100 [facility],[address], [address], [facility] - [facility] 12/24/2023 11:35:51 02/29/2024 text/html ROS as noted in the [facility] 33-year-old male presents for MRI review. MRI was reviewed for asymmetric sensorineural hearing loss, left greater than right. Hearing loss was in the higher tones 2 months ago according to office testing. He has had persistent tinnitus but no changes in hearing. ASHWINI CONCEPCION MD 100 [facility],[address], [address], [facility] 03/01/2024 14:10:27 10/09/2024 text/html ROS as noted in the [facility] 33-year-old male with high-frequency sensorineural hearing loss presents for reevaluation of the hearing. He reports hearing is stable since last seen 10 months ago. He is avoiding loud noise exposure. He would like to discuss recurring bump behind his left ear. He has had this for 10 years. He frequently pops this bump. BISHNU DOMINIQUE MD [address] [facility],[address] [address], [place], [address], [facility] 10/09/2024 18:06:31 01/15/2025 text/html 34-year-old male seen by ALIREZA in the past was noted on physical exam to have a recurring cystic lesion of the left posterior ear lobule which occasionally pops and drains material. This has been going on for 10 or more years. This has been quite bothersome for him and quite painful at times. Currently asymptomatic though he does feel the lump behind the ear. ASHWINI OCNCEPCION MD [address] [address], [place], [address], [facility] - [facility] 01/15/2025 11:47:01
--- OUTSIDE RECORDS SUMMARY | 2025-03-19 13:35 | XMS_ITS | Clinical Summary ---
Author Organization [employer] Address [address] [facility] 7t [place] [address] Care Team Providers Care Eye Glass Frame Polisher Name Role Phone Martina Chowdhury MD Primary [...] Active Problems Problem Noted Date Diagnosed Date Skipped beats 01/31/2025 MDD (major depressive disorder) 11/14/2024 Transaminitis 08/16/2024 Overweight 08/16/2024 Suicidal ideation 07/20/2023 Assessment & Plan (12/29/2023 2:23 PM EDT): PLAN: (check all that apply) Behavioral Health Integration Plan Internal Follow up with [facility] Patient Self Plan Patient to utilize skills provided in intervention , Patient to reach out to [facility] team as needed, Comply with medication , Patient to engage in OP therapy , and Patient to reach out to [facility] as needed Pt was giving with information [...] effects. Currently receiving OP individual therapy at [facility] but he reports not being satisfied [...] Health Integration Plan Internal Follow up with [facility] External OP BH therapy referral and OP psychiatry Referral Patient Self Plan Patient to utilize skills provided in intervention , Patient to reach out to [facility] team as needed, Comply with medication , Patient to engage in OP therapy , and Patient to reach out to [facility] as needed. Pt is currently connected with a therapist at [facility] and has telehealth sessions weekly. [...] Health Integration Plan Internal Follow up with [facility] Patient Self Plan Patient to utilize skills provided in intervention , Patient to reach out to [facility] team as needed, Patient to engage in OP therapy , and Patient to reach out to [facility] as needed, patient agreed to follow safety plan. Pt is currently connected with a therapist at [facility] and has telehealth sessions weekly. Pt would like to follow-up with [facility] clinician during his next medical appointment. Hearing loss 07/20/2023 FRANK (generalized anxiety disorder) 11/19/2022 Assessment & Plan (12/29/2023 2:23 PM EDT): PLAN: (check all that apply) Behavioral Health Integration Plan Internal Follow up with [facility] Patient Self Plan Patient to utilize skills provided in intervention , Patient to reach out to [facility] team as needed, Comply with medication , Patient to engage in OP therapy , and Patient to reach out to [facility] as needed Pt was giving with information from [facility] (walk-in hours, contact information and address) [...] effects. Currently receiving OP individual therapy at [facility] but he reports not being satisfied [...] Health Integration Plan Internal Follow up with [facility] External OP BH therapy referral and OP psychiatry Referral Patient Self Plan Patient to utilize skills provided in intervention , Patient to reach out to [facility] team as needed, Comply with medication , Patient to engage in OP therapy , and Patient to reach out to [facility] as needed. Pt is currently connected with a therapist at [facility] and has telehealth sessions weekly. He's not satisfied with current services. Referral for OP and psychopharmacology will be placed. Pt advised to continue with services until he gets connected to new providers. Assessment & Plan (11/08/2023 11:06 AM EDT): During IB Consult Yash presenting with [...] Health Integration Plan Internal Follow up with [facility] Patient Self Plan Patient to utilize skills provided in intervention , Patient to reach out to [facility] team as needed, Patient to engage in OP therapy , and Patient to reach out to [facility] as needed, patient agreed to follow safety plan. Pt is currently connected with a therapist at [facility] and has telehealth sessions weekly. Pt would like to follow-up with [facility] clinician during his next medical appointment. 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 Hep B not immune to start series today --- -referred to archives specialist for chronic bilateral hearing loss-pd to get apt -labs 11/2022 WBC 4.1<----4.3,ANC 1700 --will repeat CBC in 3 mo if ANC < 1500 will refer to airfield operations specialist Assessment & Plan (11/18/2022 9:07 PM EDT): -labs x annual exam will RTC in fasting -pt agreed to have STI testing including HIV to have for baseline -vaccines: s/p COVID-19 x2, today bivalent, Tdap and P20, unsure about HPV vaccine-advise that if interested can get vax at vaccine clinic --- -referred to archives specialist for chronic bilateral hearing loss Mild intermittent [...] upper respiratory tract infection 01/25/2024 08/16/2024 Encounters Date Type Department Care Team Description 02/27/2025 Orders Only [facility] MEDICINE [address] [place] [phone] Martina Chowdhury MD Chest discomfort (Primary Dx) 02/27/2025 Telephone [place] [employer] [address] [place] [address] Martina Chowdhury MD HOLTER MONITOR ORDER 01/31/2025 10:45 AM EDT Office Visit [facility] MEDICINE [address] [place] [phone] Martina Chowdhury MD Annual physical exam (Primary Dx); Chest discomfort; Encounter for immunization; Transaminitis; Healthcare maintenance; FRANK (generalized anxiety disorder); Severe episode of recurrent major depressive disorder, without psychotic features (CMS/HCC); Suicidal ideation; Tobacco abuse; Skipped beats 01/31/2025 Travel 01/24/2025 Results Follow-Up [facility] MEDICINE [address] [place] [address] Martina Chowdhury MD US Abdomen Complete 01/24/2025 Patient Outreach [facility] P[facility]S [address] [place] [address] Martina Chowdhury MD Pre-visit Planning (SDOH was already completed) 01/24/2025 Travel from Last 3 Months Immunizations Immunization Administration Dates Next Due Hep B, adult 07/20/2023,01/13/2023,12/16/2022 Influenza, IIV3, injectable 03/16/2016, 6 Influenza, seasonal, injecta ble, preservative free 01/31/2025 Pfizer Covid-19 Vaccine 12+ 07/20/2023,0 05/18/2021,11/14/2020,2020 Pfizer [...] drink = 0.6 oz pur e alcohol) Depression Answer Date Recorded Patient Health Questionnaire-9 Score 19 01/31/2025 Patient Health Questionnaire-9 Score 19 01/31/2025 Last PHQ-9: Questionnaire Data Not on file 0 01/31/2025 Housing Stability Answer Date Recorded What is [...] Answer Date Recorded Patient Health Questionnaire-2 Score 5 01/31/2025 Internet Access Answer Date Recorded Internet Access [...] Sign Reading Time Taken Comments Blood Pressure 128/76 01/31/2025 10:46 AM EDT Pulse 77 01/31/2025 10:46 AM EDT Temperature 36.3 C (97.3 F) 01/31/2025 10:46 AM EDT Respiratory Rate 20 01/31/2025 10:46 AM EDT Oxygen Saturation 99% 01/31/2025 10:46 AM EDT Inhaled Oxygen Concentration - - Weight 83.5 kg (184 lb) 01/31/2025 10:46 AM EDT Height 180.3 cm (5' 11 ) 01/31/2025 10:46 AM EDT Body Mass Index 25.66 01/31/2025 10:46 AM EDT Plan of Treatment Upcoming Encounters Date Type Department Care Team (Late st Contact Info) Description 06/05/2025 11:30 AM EST Office Visit [facility] MEDICINE [address] [place], [place] [phone] Martina Chowdhury MD [address] [place], [place] [phone] Health Maintenance Due Date Last Done Comments Family Planning (PISQ) 12/02/2003 HPV Vaccines (1 - Male 3-dose series) 12/02/2003 COVID-19 Vaccine ( season) 2025 07/20/2023, 11/18/2022, 05/18/2021, Additional history exists Depression Monitoring 07/31/2025 01/31/2025, 025 SDOH Screening 08/04/2025 08/04/2024 Alcohol/Substance Use Screening 08/15/2025 08/15/2024 Disability Screening 11/30/2025 11/30/2024 Tobacco Screening 01/31/2026 01/31/2025 Lipid Panel 08/08/2029 08/08/2024, 11/07, 08/14/2020 DTaP/Tdap/Td [...] C Screening Completed 08/08/2024 , 11/23/2022, 07/31/2019 Influenza Vaccine Completed 01/31/2025, , 07/11/2015 HIB Vaccines Aged Out No longer eligi [...] Procedure Name Priority Date/Time Associated Diagnosis Comments ECG 12-LEAD Routine 01/31/2025 11:31 AM EDT Chest discomfort US ABDOMEN COMPLETE Routine 01/24/2025 1 0:02 AM EDT Transaminitis AMB REFERRAL TO ENT Routine 01/15/2025 Tinnitus of both ears HEPATITIS C AB W/REFL TO HCV RNA, QN, PCR Routine 08/08/2024 10:44 AM EDT Annual physical exam HIV 1/2 ANTIGEN/ANTIBODY, FOURTH GENERATION W/RFL Routine 08/08/2024 10:44 AM EDT Annual physical exam LIPID PANEL, STANDARD Routine 08/08/2024 10:44 AM EDT Annual physical exam from Last 3 Months or Most Recently Relevant to Health Maintenance Results * ECG 12 lead (01/31/2025 11:31 AM EDT) Narrative Martina Chowdhury MD - 01/31/2025 11:31 AM EDT -EKG today NSR,Qtc 387 ,HR 70, no ischemic changes ,only aVL low QRS us Martina Ash MD ECG ORDERABLES F inal Result * US Abdomen Complete (01/24/2025 10:02 AM EDT) Anatomical Region Laterality Modality Abdomen Ultrasound 01/24/2025 10:0 2 AM EDT Narrative 01/24/2025 12:10 PM EDT [address] [address] Ultrasound Report Signed Patient: Yash Almaraz MR#: [id number] : 1990 Acct:[id number] Age/Sex: 34 / M ADM Date: 01/24/25 Loc: HO.US Attending Dr: Martina Ash MD Ordering Physician: Martina Chowdhury MD Date of Service: 01/24/25 Procedure(s): US abdomen complete Accession Number(s): [id number] cc: Martina Chowdhury MD Reason for Exam: Transmainitis EXAMINATION: US ABDOMEN HISTORY: Transaminitis TECHNIQUE: Real-time grayscale ultrasound imaging of the abdomen was performed and images were reviewed. COMPARISON: There are no prior studies available for comparison. FINDINGS: Liver: The right lobe of the liver measures 13.3 cm in size. The left lobe of the liver measures 8.8 cm in size. The liver demonstrates normal homogeneous echotexture. No focal mass or intrahepatic biliary ductal dilatation is identified. There is normal hepatopedal flow in the portal vein. Gallbladder and biliary tree: The gallbladder is unremarkable, without evidence of calculi, wall thickening, or pericholecystic fluid. There is no sonographic Gloria sign. The common bile duct is normal in caliber measuring 3 mm. Kidneys: The right kidney measures 10.6 cm in length. The left kidney measures 10.7 cm in length. The kidneys are unremarkable, without evidence of masses, hydronephrosis, or calculi. Pancreas: The pancreatic head, neck, and body are unremarkable. The pancreatic tail is obscured by bowel gas. Spleen: The spleen is normal in size and contour, measuring 8.6 cm in length. Abdominal aorta and inferior vena cava: The visualized portions of the abdominal aorta and inferior vena cava are normal in caliber. There is no free fluid in the abdomen. US/US abdomen complete IMPRESSION: Unremarkable abdominal ultrasound. Electronically signed by: Karel Singh MD 01/24/2025 12:07 PM EDT Dictated By: Karel Singh MD Signed By: <Electronically signed by Karel Singh MD in OV> 01/24/25 1207 DD/ 1002 TD/TT: 01/24/25 1022 Manager Psychology: Procedure Note Donotuseinterpreter, Image - 01/24/2025 [place] [address] Ultrasound Report Signed Patient: Yash AlmarazMR#: [id number] : 1990Acct:[id number] Age/Sex: 34 / MADM Date: 01/24/25 Loc: HO.US Attending Dr: Martina Ash MD Ordering Physician: Martina Chowdhury MD Date of Service: 01/24/25 Procedure(s): US abdomen complete Accession Number(s): [id number] cc: Martina Chowdhury MD Reason for Exam: Transmainitis EXAMINATION: US ABDOMEN HISTORY: Transaminitis TECHNIQUE: Real-time grayscale ultrasound imaging of the abdomen was performed and images were reviewed. COMPARISON: There are no prior studies available for comparison. FINDINGS: Liver: The right lobe of the liver measures 13.3 cm in size. The left lobe of the liver measures 8.8 cm in size. The liver demonstrates normal homogeneous echotexture. No focal mass or intrahepatic biliary ductal dilatation is identified. There is normal hepatopedal flow in the portal vein. Gallbladder and biliary tree: The gallbladder is unremarkable, without evidence of calculi, wall thickening, or pericholecystic fluid. There is no sonographic Gloria sign. The common bile duct is normal in caliber measuring 3 mm. Kidneys: The right kidney measures 10.6 cm in length. The left kidney measures 10.7 cm in length. The kidneys are unremarkable, without evidence of masses, hydronephrosis, or calculi. Pancreas: The pancreatic head, neck, and body are unremarkable. The pancreatic tail is obscured by bowel gas. Spleen: The spleen is normal in size and contour, measuring 8.6 cm in length. Abdominal aorta and inferior vena cava: The visualized portions of the abdominal aorta and inferior vena cava are normal in caliber. There is no free fluid in the abdomen. US/US abdomen complete IMPRESSION: Unremarkable abdominal ultrasound. Electronically signed by: Karel Singh MD 01/24/2025 12:07 PM EDT Dictated By: Karel Singh MD Signed By: <Electronically signed by Karel Singh MD in OV> 01/24/25 1207 DD/ 1002 TD/TT: 01/24/25 1022 Manager Psychology: Martina Ash MD IMG US PROCEDURES Edited Result - Final * Referral to ENT (01/15/2025) Martina Ash MD OUTPATIENT REFERR AL ORDERABLES Final Result * Hepatitis C Antibody with Reflex to HCV, RNA, Quantitative, Real-Time PCR (08/08/2024 10:44 AM EDT) Hepatitis C Antibody Nonreactive Nonreactive [facility] Comment:Antibodies to HCV no t detected; does not exclude early acuteHCV infection. Blood Venous blood specimen / Unknown 08/08/2024 10:44 AM EDT 08/08/2024 11:21 AM EDT Martina Ash MD LAB BLOOD ORDERAB LES Final Result [facility] [address] [place] [phone] * HIV-1/2 Antigen and Antibodies, Fourth Generation, with Reflexes (08/08/2024 10:44 AM EDT) HIV AB/AG Nonreactive Nonreactive [facility] Comment:HIV-1 p24 Ag and/or HIV-1/HIV-2 Ab not detected.A test result that is nonreactive does not exclude thepossibility of exposure to or infection with HIV-1 and/orHIV-2. Nonreactive results in this assay for individualswith prior exposure to HIV-1 and/or HIV-2 may be due toantigen and antibody levels that are below the limit ofdetection of this assay.The InsticatorniAlphaClone HIV Ag/Ab Combo assay result andsupplemental assay results should be interpreted inconjunction with the patient's clinical presentation,history and other laboratory results. If the results areinconsistent with clinical evidence, additional testing issuggested to confirm the result. Blood Venous blood specimen / Unknown 08/08/2024 10:44 AM EDT 08/08/2024 11:21 AM EDT us Martina Ash MD LAB BLOOD ORDERAB LES Final Result [facility] [address] [place] [phone] * (ABNORMAL) Lipid Panel, Standard (08/08/2024 10:44 AM EDT) Triglycerides 145 <150 mg/dL [facility] Comment:Desirable Triglyceri de: less than 150 mg/dLBorderline High Triglyceride 150-199 mg/dLHigh Triglyceride: 200-499 mg/dLVery High Triglyceride: greater than or equal to 5OO mg/dL Cholesterol 189 <200 mg/dL [facility] Comment:Desirable Cholestero l: less than 200 mg/dLBorderline High Cholesterol: 200-239 mg/dLHigh Cholesterol: greater than 239 mg/dL LDL Cholesterol Calculated 134(H) <100 mg/dL [facility] Comment:Desirable LDL: less than 100 mg/dLNear Optimal/Above Optimal LDL: 110- 129 mg/dLBorderline High LDL: 130-159 mg/dLHigh LDL: 160-189 mg/dLVery High LDL: greater than or equal to 190 mg/dL HDL Cholesterol 26(L) >40 mg/dL [facility] Comment:Desirable HDL: great er than 40 mg/dL Note: This HDL assay may give artificially low results in patients with liver disease. Blood Venous blood specimen / Unknown 08/08/2024 10:44 AM EDT 08/08/2024 11:21 AM EDT Martina Ash MD LAB BLOOD ORDERAB LES Final Result [facility] [address] [place] [address] [phone] from Last 3 Months or Most Recently Relevant to Health Maintenance Insurance C3 Care Teams Eye Glass Frame Polisher Relationship Specialty Start Date End Date Martina Chowdhury MD [address] [place] [phone] PCP - General Internal Medicine 08/25/22
--- OUTSIDE RECORDS SUMMARY | 2025-03-19 13:35 | XMS_ITS | Encounter Summary ---
Author Organization [employer] Address [address] [facility] 7 [place] [address] Care Team Providers Care Caseworker Protective Services Name Role Phone Martina Chowdhury MD Primary Care Pro vider Reason for Visit * Reason Comments Med Refill Encounter Details Date Type Department Care Team (Late st Contact Info) Description 11/18/2022 Refill [facility] [address] [place], [place] [phone] Martina Chowdhury MD [address] [place] [address] Social History Tobacco Use Types Packs/Day Years [...] Marilyn Beth MA Patient Health Questionnaire-9 Score 11/18/2022 2:11 PM EDT Luis Beth MA documented as of this encounter Plan of Treatment Upcoming Encounters Date Type Department Care Team (Late st Contact Info) Description 06/05/2025 11:30 AM EST Office Visit [facility] MEDIC[facility] [address] [place] [phone] Martina Chowdhury MD [address] [place] [phone] documented as of this encounter Visit Diagnoses Not on filedocumented in this encounter Additional Health Concerns Assessment Noted Time PHQ-9 Depression Total Score: 023 2:11 PM EDT documented as of this encounter Care Teams Caseworker Protective Services Relationship Specialty Start Date End Date Martina Chowdhury MD [address] [place] [phone] PCP - General Internal Medicine 08/25/22 documented as of this encounter
--- OUTSIDE RECORDS SUMMARY | 2025-03-19 13:35 | XMS_ITS | Continuity of Care Document ---
Author Organization [place] - [facility], [facility] Address [address] [place] [address] Care Team Providers Care Avionics Repair Technician Name Role Phone KELSIE ELIAS Primary Care Provider Assessment Encounter Date Assessment Date Assessment LastModified by Organization Details LastModified Time 01/15/2025 01/15/2025 Left ear is demonstrating what [...] him back at the time of surgery. [email or web address] Not available 01/15/2025 11:46:18 Plan of Treatment Reminders Order Date Submit Date Provider Last Modified By Organization Details Last Modified Time Details Appointments Post Op 2024 03:00P M ALIREZA DA SILVA Not available Not available Not available Lab None recorded. Referral None recorded. Procedures None recorded. Surgeries excision, sebaceous cyst (SURG) 2024 025 [email or web address] Not available 01/22/2025 13:42:41 Imaging None recorded. Medication Orders None recorded. Patient TargetsNo targets recorded. Patient InstructionsNo instructions recorded. Reason for Referral None Reported. Problems Name Problem SNOMED Code Status Onset Date Resolution Date Notes Provider Name and Address Organization Details Recorded Time Asymmetrical sensorineural hearing loss 771911160 Active 2023 Safia velarde [place] - [facility] 10:36:52 Sensorineural hearing loss of bilateral ears 958810011 Active 2024 CHRISTIANO WEBB , AUD [address] [facility], [place], [phone], [facility] - [facility] [place] 5 11:01:15 Cyst of skin 054662388 Active 2024 EDUARDO TELLO PA-C [address] [facility], [place], [phone], [facility] - [facility] 11:42:15 Problem Notes None recorded. Procedures Surgical History Date Name Laterality Status Provider Name and Address Organization Details Recorded Time 10/09/2024 Air & Speech Audio with Tymps - 02334, 41974 & 22608 completed CHRISTIANO WEBB AUD [address] [facility] [address], [place], [phone], [facility] - [facility] 10/09/2024 11:01:00 12/24/2023 Comp Audio with Tymps - 80544 & 03215 completed Safia Villalobos [facility] 12/24/2023 10:36:35 Imaging Results None recorded. Procedure Notes None recorded. Medical Equipment None Reported. Allergies Allergen ID Allergen Name Allergen Category Reaction Reaction Severity Criticality Documentation Date Start Date Code Code System Note Provider Name and Address Organization Details Recorded Time 363614 shellfish derived food,medi cation Not available Not available Not available 12/24/2023 Rhiannon velarde [place] - [facility] 4 10:10:37 Medications Name Sig Start [...] Not Available Not Available Not Available Vitals None Recorded Social History None recorded. Functional Status None recorded. Mental Status None recorded. Family History Nothing Reported. Medical History Condition Response Migraines Y Anxiety Y Depression Y Asthma Y Past Encounters Encounter ID Performer Location Encounter Start Date Encounter Closed Date Diagnosis/Indication Diagnosis SNOMED-CT Code Diagnosis ICD10 Code Diagnosis IMO Codes Diagnosis Note [id number] ASHWINI CONCEPCION MD [facility] of [address] [phone] 01/15/2025 10:54:05 01/15/2025 11:46:50 Cyst of skin 017546433 L72.9 16043 Health Concerns Section Related Observation LastModified by Organization Dettihsa stanton LastModified Time None Recorded Concern Status LastModified by Organization Details LastModified Time None Recorded Payers Encounter Date Sequence Insurance Name Policy Number Policy Fraser Covered Member ID Fraser Member ID Guarantor Name 01/15/2025 1 [place] [id number] Yashoscar VillarSolis [id number] Yash Ribera Notes Date Note Type Note Provider Name and Address Organization Details Recorded Time 01/15/2025 text/html 34-year-old male seen by PA in the past was noted on physical exam to have a recurring cystic lesion of the left posterior ear lobule which occasionally pops and drains material. This has been going on for 10 or more years. This has been quite bothersome for him and quite painful at times. Currently asymptomatic though he does feel the lump behind the ear. ASHWINI CONCEPCION MD [address] [place] [address], [phone], [facility] - [facility] 01/15/2025 11:47:01
--- OUTSIDE RECORDS SUMMARY | 2025-03-19 13:35 | XMS_ITS | Encounter Summary ---
Author Organization [employer] Address [address] [facility] 7[address] [place] [address] Care Team Providers Care Semaphore Operator Name Role Phone Martina Chowdhury MD Primary Care Pro vider Encounter Details Date Type Department Care Team ([facility] st Contact Info) Description 01/24/2025 Results Follow-Up [facility]INE [address] [place], [place] [phone] Martina Chowdhury MD [address] [place] [address] US Abdomen Complete Social History Tobacco Use Types Packs/Day Years [...] Encounter Note - Martina Ash MD - 01/24/2025 9:20 PM EDT Will inform normal abd US report at next apt w me in 1 week documented in this encounter Plan of Treatment Upcoming Encounters Date Type Department Care Team (Late st Contact Info) Description 06/05/2025 11:30 AM EST Office Visit [facility] MEDICINE [address] [place] [phone] Martina Chowdhury MD [address] [place] [address] documented as of this encounter Goals Goal [...] documented as of this encounter Care Teams Semaphore Operator Relationship Specialty Start Date End Date Martina Chowdhury MD [address] [place] [id number] PCP - General Internal Medicine 08/25/22 documented as of this encounter
== END ==
LOC: HO.CARD 11:16
PROVIDERS: PCP Student in an Organized Health Care Education/Training Program; Visit Provider Student in an Organized Health Care Education/Training Program
DX: R07.89 Other chest pain (principal)
CPT/HCPCS: 93242

== ENCOUNTER → 2025-03-19 11:20 | Outpatient (BNV) | payer MEDICAID, SELFPAY | PROVIDERS: PCP Student in an Organized Health Care Education/Training Program; Visit Provider Internal Medicine | DX: I49.3 Ventricular premature depolarization (principal); I49.49 Other premature depolarization | CPT/HCPCS: 93244 ==

== ENCOUNTER 2025-04-29 15:29 | Emergency (ER) | payer MEDICAID, SELFPAY ==
[2025-04-29 15:36] VITALS: BP 140/71; PULSE 101; RESP 18; TEMP 39.2; O2SAT 97; BMI 25.3
--- NOTE | 2025-04-29 15:36 | ED_ITS ---
HPI - Asthma General Chief Complaint: Upper Respiratory Symptoms Stated Complaint: Asthma and congestion Time Seen by Provider: 04/29/25 15:47 History of Present Illness ED Provider: Sumaya Boyer NP HPI Narrative: 34-year-old male medical history significant for asthma presents to the ED for evaluation reporting 3 days cough, wheezing. With cough there is generalized body aches. Temp yesterday 102? F at home. Reports his son is now sick. Reporting dry cough, some headache. No chest pain, shortness of breath. No abdominal pain, nausea, vomiting, diarrhea, constipation. No sore throat. In triage, temperature 102.5? F. No significant tachycardia, low 100s. Related Data Previous Rx's ?Medication ?Instructions ?Recorded cephalexin 500 mg capsule 500 mg PO Q12H 5 days #10 ca ps 11/10/20 prednisone 20 mg tablet 40 mg (2 x 20 mg) PO DAILY 4 days 11/10/20 #8 tabs acetaminophen 500 mg tablet 500 mg PO Q6H PRN fever or pain 07/14/22 (Tylenol Extra Strength) #14 tabs cyclobenzaprine 5 mg tablet 5 mg PO Q8H PRN pain (scal e score 07/14/22 7-10) 5 days #14 tabs lidocaine 5 % topical patch 1 patch topical DAILY PRN pain #30 07/14/22 (Lidoderm) ea naproxen 500 mg tablet 500 mg PO BID PRN pain 10 da ys #20 07/14/22 tabs loperamide 2 mg capsule (Imodium 2 mg PO Q4H PRN loose stool #20 08/10/22 A-D) caps ondansetron 4 mg disintegrating 4 mg PO Q8H PRN nausea and 08/10/22 tablet vomiting #20 tabs albuterol sulfate 2.5 mg/3 mL 2.5 mg (3 mL) inhalation Q4-6H PRN 01/19/23 (0.083 %) solution for nebulization shortness of breat h or wheezing #75 mL prednisone 50 mg tablet 50 mg PO DAILY #5 tabs 01/19 Allergies Allergy/AdvReac Type Severity Reaction Status Date / Time seafood Allergy Anaphylaxis Verified 04/29/25 15:40 Review of Systems Review of Systems: ROS is otherwise negative unless mentioned in HPI. [facility] Past Medical History Medical History Depression Anxiety Asthma Social History Social History (Updated 12/10/23 @ 01:31 by Patrizia Longoria DO) Patient Tobacco Use Status: Tobacco use Unknown Advance Directives: No Advance Directives Information Provided: No Physical Exam Exam: Exam: Nursing notes and vital signs reviewed. Constitutional: Well-appearing, NAD. Alert. Oriented X3. Eyes: EOMI. ENT: Pharynx normal. Neck: Normal inspection. Neck supple. CVS: Normal heart rate and rhythm. Pulses normal. Respiratory: No respiratory distress. Breath sounds normal. Abdomen: Nondistended. Skin: Skin warm and dry. Normal skin color. Extremities: No lower extremity edema. Neuro: Oriented X 3. No motor deficit. Vital Signs: Vital Signs: Last Vital Signs Temp 102.5 F H 04/29/25 15:36 Pulse 101 H 04/29/25 15:36 Resp 18 04/29/25 15:36 BP 140/71 H 04/29/25 15:36 Pulse Ox 97 04/29/25 15:36 O2 Del Method Room Air 04/29/25 15:36 BMI result Body Mass Index 25.3 Medications Administered Discontinued Medications Generic Name Dose Route Start Last Admin Trade Name Freq PRN Reason Stop Dose Admin Acetaminophen 975 mg 04/29/25 15:39 04/29/25 15:45 Acetaminophen 325 Mg Tablet PO 04/29/25 15:40 975 mg ONCE ONE Administration Dexamethasone 10 mg 04/29/25 16:35 04/29/25 16:54 Dexamethasone 2 Mg Tablet PO 04/29/25 16:36 10 mg ONCE ONE Administration Ibuprofen 600 mg 04/29/25 15:39 04/29/25 15:44 Ibuprofen 600 Mg Tablet PO 04/29/25 15:40 600 mg ONCE ONE Administration Medical Decision Making Medical Decision Making MDM Narrative: He appears well, no acute distress. In triage, temperature 102.5? F. No significant tachycardia, low 100s likely secondary to fever. He has asthma, and therefore his wheezing is likely secondary to a viral illness. Pending viral swabs, we will give Tylenol and ibuprofen in the ED for fever, reassessment. 4:36 PM-- we will administer a dose of Decadron given his report of coughing episodes that are dry, nonproductive and his asthma history. He is positive for influenza A. Plan to repeat temperature, likely discharge to home. 5:33 pm--temperature has improved. He is agreeable with discharge plan. Given return precautions to the ED, patient agreeable to plan of care. Differential Diagnosis Differential Diagnoses: The differential diagnosis associated with the presentation includes Viral illness, asthma exacerbation Admission/Observation Consideration of admission/observation: Escalation of care including admission/observation considered (Not indicated) Lab Data MDM Lab Attestation statement: I reviewed the patient's lab results. (Positive for influenza A) Labs: Lab Results 04/29/25 Range/Units 15:49 Influenza Type A (PCR) POSITIVE A (Negative) Influenza Type B (PCR) NEGATIVE (Negative) RSV RNA Qual (PCR) NEGATIVE (Negative) SARS-CoV-2 RNA (RT-PCR) NEGATIVE (Negative) External Record Review External record reviewed: Outside ED record Prescription Management I considered prescription management with: Antiviral Not indicated, sx onset unclear Chronic Conditions Patient?s care impacted by: Other (Asthma) Social Determinants Patient?s care significantly limited by Social Determinants of Health including: Problems related to primary support group Discharge Plan Discharge Clinical Impression: Influenza A Patient Disposition: Home, Self-Care Instructions: Influenza (DC), Droplet Precautions (ED) Additional Instructions: As we discussed, you have flu A. You should use fxfe-auj-mnnzibm Tylenol, ibuprofen and treat yourself symptomatically with pxqh-csg-hrdvlod medications. We gave you a dose of Decadron, a steroid, while in the ED. Please note that you are currently contagious, as you have a fever. With any worsening complaints at any time, seek re-evaluation in the ED. Prescriptions: No Action cephalexin 500 mg capsule 500 mg PO Q12H 5 Days Qty: 10 0RF prednisone 20 mg tablet 40 mg PO DAILY 4 Days Qty: 8 0RF acetaminophen [Tylenol Extra Strength] 500 mg tablet 500 mg PO Q6H PRN (Reason: fever or pain) Qty: 14 0RF lidocaine [Lidoderm] 5 % adhesive patch,medicated 1 patch topical DAILY MDD remove after 12 hours PRN (Reason: pain) Qty: 30 0RF Rx Instructions: leave on most painful area for up to 12 hrs naproxen 500 mg tablet 500 mg PO BID PRN (Reason: pain) 10 Days Qty: 20 0RF cyclobenzaprine 5 mg tablet 5 mg PO Q8H PRN (Reason: pain (scale score 7-10)) 5 Days Qty: 14 0RF ondansetron 4 mg tablet,disintegrating 4 mg PO Q8H PRN (Reason: nausea and vomiting) Qty: 20 0RF loperamide [Imodium A-D] 2 mg capsule 2 mg PO Q4H PRN (Reason: loose stool) Qty: 20 0RF Rx Instructions: administer after each loose stool until symptoms controlled; do not exceed 8 mg per 24 hrs albuterol sulfate 2.5 mg /3 mL (0.083 %) solution for nebulization 2.5 mg inhalation Q4-6H PRN (Reason: shortness of breath or wheezing) Qty: 75 0RF prednisone 50 mg tablet 50 mg PO DAILY Qty: 5 0RF Referrals: Martina Chowdhury MD [Primary Care Provider, Internal Medicine] Print Language: French
[2025-04-29 16:31] LABS: Resp Syncy Virus RNA Qual PCR NEGATIVE (Negative); SARS COV2 PCR INHOUSE NEGATIVE (Negative)
--- OUTSIDE RECORDS SUMMARY | 2025-04-29 16:36 | XMS_ITS | Encounter Summary ---
Author Organization [employer] Address [address] [place] [address] Care Team Providers Care Autos Disassembler Name Role Phone Martina Chowdhury MD Primary Care Pro vider Encounter Details Date Type Department Care Team (Late st Contact Info) Description 04/29/2025 Orders Only GENERIC EXTERNAL DATA DEPARTMENT Provider, Generic External Data Social History Tobacco Use Types Packs/Day Years [...] Answer Date Recorded Patient Health Questionnaire-9 Score 01/31/2025 Patient Health Questionnaire-9 Score 01/31/2025 Last PHQ-9: Questionnaire Data Not on [...] Upcoming Encounters Date Type Department Care Team ([facility] st Contact Info) Description 06/05/2025 11:30 AM EST Office Visit [facility] [address] [place] [phone] Martina Chowdhury MD [address] [place] [phone] documented as of this encounter Goals Goal Patient Goal Type Associated Problems Recent Progress Patient-Stated? Author Smoking cessation General No Federico Dow Note: Utilize NRT to achieve smoking cessation. documented as of this encounter Procedures Procedure Name Priority Date/Time Associated Diagnosis Comments SARS COV2/INFLUENZA A/B AND RSV RNA QL NAAT Routine 04/29/2025 3:49 PM EST documented in this encounter Results * (ABNORMAL) SARS-CoV-2 RNA, Influenza A/B, and RSV RNA, Ql NAAT (04/29/2025 3:49 PM EST) Influenza A PCR POSITIVE(A) Negative [facility] Influenza B PCR NEGATIVE Negative [facility] Resp Syncy Virus RNA Qual PCR NEGATIVE Negative [facility] SARS COV2 PCR NEGATIVE Negative [facility] Comment:All test results mus t be correlated with clinical findings.Negative results do not preclude SARS-CoV2, influenza Avirus, influenza B virus and/or RSV infectionand should not be used as the sole basis for treatment orother patient management decisions. Negative results must becombined with clinical observations, patient history, andepidemiological information.This test has not been evaluated for monitoring treatment ofinfection.This test has been authorized by the FDA under an EmergencyUse Authorization (EUA) for use by authorized laboratories.Testing performed on the [employer] GeneXpert utilizingreal-time RT-PCR.All SARS CoV2 and positive influenza A/B results arereported to [facility]. 04/29/2025 3:49 PM EST 04/29/2025 3:51 PM EST us Generic External Data Provider LAB MICROBIOLOGY - GENERAL ORDERABLES Final Result [facility] [address] [place] [phone] documented in this encounter Visit Diagnoses Not on filedocumented in this encounter Additional Health Concerns Assessment Noted Time PHQ-9 Depression Total Score: 19 01/31/ 025 11:40 AM EDT documented as of this encounter Care Teams Autos Disassembler Relationship Specialty Start Date End Date Martina Chowdhury MD [address] [place] [address] PCP - General Internal Medicine 08/25/22 documented as of this encounter
--- OUTSIDE RECORDS SUMMARY | 2025-04-29 16:37 | XMS_ITS | Continuity of Care Document ---
Author Organization [place] - [facility], [facility] Address [address] [place] [address] Care Team Providers Care Director Of Math Name Role Phone SARKIS XAVIER Referring Provider KELSIE ELIAS Primary Care Provider Assessment Encounter Date Assessment Date Assessment LastModified by Organization Details LastModified Time 03/23/2025 03/23/2025 34 year old male, s/p excision of left postauricular cyst performed 03/09/[address] Spears, presents for postoperative evaluation. Surgical pathology is consistent with an epidermal inclusion cyst. There is a well-healed left postauricular incision without fluctuance, bleeding, or signs of infection. Remainder of exam is unremarkable. Reassurance was provided that the cyst is benign. No further workup or intervention is indicated at this time. Follow up as needed otherwise. All questions were answered. [email or web address] Not available 03/29/2025 00:22:12 Plan of Treatment Reminders Order Date Submit Date Provider Last Modified By Organization Details Last Modified Time Details Appointments None record ed. Lab None record ed. Referral None record ed. Procedures None record ed. Surgeries None record ed. Imaging None record ed. Medication Orders None record ed. Patient TargetsNo targets recorded. Patient InstructionsNo instructions recorded. Reason for Referral None Reported. Results Created Date Observation Date Name Description Value Unit Range Abnormal Flag Note LastModifiedBy Organization Detail LastModifiedTime Result Notes None recorded. 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,[place] [address], [place], [phone], [facility] - [facility] 5 11:01:15 Cyst of skin 027208345 Active 2024 EDUARDO TELLO PA-C [address] [facility] [address], [place], [phone], [facility] - [facility] 5 11:42:15 Problem Notes None recorded. Procedures Surgical History Date Name Laterality Status Provider Name and Address Organization Details Recorded Time 10/09/2024 Air & Speech Audio with Tymps - 08918, 28119 & 26418 completed CHRISTIANO WEBB, AUD [address] [facility] [address], [place], [phone], [facility] - [facility] 10/09/2024 11:01:00 12/24/2023 Comp Audio with Tymps - 38437 & 23977 completed Safia Villalobos [facility] 12/24/2023 10:36:35 Imaging Results None recorded. Procedure Notes None recorded. Medical Equipment None Reported. Allergies Allergen ID Allergen Name Allergen Category Reaction Reaction Severity Criticality Documentation Date Start Date Code Code System Note Provider Name and Address Organization Details Recorded Time 020238 shellfish derived food,medi cation Not available Not available Not available 12/24/2023 Rhiannon velarde [place] - [facility] 4 10:10:37 Medications Name Sig Start Date [...] Not Available Vitals Date Recorded Body height Provider Name an d Address Organization Details Last Updated DateTime 03/23/2025 180.34 cm ELISEO SHERMAN [place] - [facility] 03/23/2025 14:54:46 Social History None recorded. Functional Status None recorded. Mental Status None recorded. Family History Nothing Reported. Medical History Condition Response Migraines Y Anxiety Y Depression Y Asthma Y Past Encounters Encounter ID Performer Location Encounter Start Date Encounter Closed Date Diagnosis/Indication Diagnosis SNOMED-CT Code Diagnosis ICD10 Code Diagnosis IMO Codes Diagnosis Note [id number] ALIREZA DA SILVA [facility] [address] [place] [address] 03/23/2025 14:48:45 03/23/2025 15:18:51 Cyst of skin 798976161 L72.9 04017 Health Concerns Section Related Observation LastModified by Organization Detai ls LastModified Time None Recorded Concern Status LastModified by Organization Details LastModified Time None Recorded Payers Encounter Date Sequence Insurance Name Policy Number Policy Fraser Covered Member ID Fraser Member ID Guarantor Name 03/23/2025 1 [place] [facility] Yash Solis [id number] Yash Ribera Notes Date Note Type Note Provider Name and Address Organization Details Recorded Time 03/23/2025 text/html ROS as noted in the HPI 34 year old male, s/p excision of left postauricular cyst performed 03/09/[address] Spears, presents for postoperative evaluation. Patient is doing well following surgery. He has no acute concerns to report today. Denies pain, fever, purulent discharge, and bleeding from the incision site. ZULEMA OSORIO MD [address] [place] [address], [place], [phone], [facility] - [facility] 03/29/2025 16:37:35
--- OUTSIDE RECORDS SUMMARY | 2025-04-29 16:37 | XMS_ITS | Data Portability ---
Author Organization [place] - [facility], Allergy Address [address] [address] Care Team Providers Care Traffic Operations Manager Name Role Phone SARKIS XAVIER Referring Provider [...] him back at the time of surgery. [email or web address] Not available 01/15/2025 11:46:18 03/23/2025 03/23/2025 34 year old male, s/p excision of left postauricular cyst performed 03/09/[address] Concepcion, presents for postoperative evaluation. Surgical pathology is [...] Details Last Modified Time Details Appointments None recorded. Lab None recorded. Referral None recorded. Procedures None recorded. Surgeries excision, sebaceous cyst (SURG) 2024 025 [email or web address] Not available 13:42:41 Imaging MRI, internal auditory canal, w/wo contrast 2023 024 [email or web address] [facility] ([facility]), [address] [facility], [place], [address], 10:50:15 Medication Orders None recorded. Patient TargetsNo targets recorded. Patient InstructionsNo instructions recorded. Reason for Referral None Reported. Results Created Date Observation Date Name Description Value Unit Range Abnormal Flag Note LastModifiedBy Organization Detail LastModifiedTime 12/27/19 audio gram No observ ation record ed. BARCODE Not Available 2023 14:05:54 02/08/2002/05/2024 MRI, brain + brain stem, w/wo contr ast [facility] Access ion Number : [id number] Juan neal Name: Yash Solis Record Number : [id number] Date of : 1990 Date of Exam: 2023 Referr ing Physic daniel: Matt Pabon Surgeo ns of [facility] [address], [address] [facility] [place] [facility] [address] Exam: MR Brain (C-/C+ ) CPT 86753 Room Descri ption: [facility] 3.0T MR Brain (C-/C+ ) CPT 67255 INDICA TION / CLINIC AL QUESTI ON: [...] or abnorm al enhanc ement in the hospitality intern al audito ry canals or cerebe [...] onical ly Signed By: Clair Contreras MD [email or web address] [facility] ([facility]) [address], [place], [address], 02/09/2024 12:48:33 02/08/20 24 02/05/2024 MRI, inter nal audit ory canal , w/wo contr ast No observ ation record ed. [email or web address] [facility] [address], [place], [address], 02/09/2024 12:48:43 02/10/20 24 02/05/2024 MRI, brain + brain stem, w/wo contr ast [facility] Access ion Number : [id number] Juan neal Name: Yash Solis Record Number : [id number] Date of : 1990 Date of Exam: 2023 Referr ing Physic daniel: Matt Pabon [facility] [address] [facility] [place] [facility] [address] Exam: MR Brain (C-/C+ ) CPT 36714 Room Descri ption: [facility] 3.0T MR Brain (C-/C+ ) CPT 41711 INDICA TION / CLINIC AL QUESTI ON: [...] or abnorm al enhanc ement in the hospitality intern al audito ry canals or cerebe [...] ms. Electr onical ly Signed By: Clair guan[address] [facility] ([facility]) [address] [facility], [place], [address], 02/11/2024 08:49:50 10/10/19 25 audio gram No observ ation record ed. BARCODE Not Available 2024 13:54:58 Result Notes Documentation Provider Name and Address Organization Details Recorded Time Mri, Brain + Brain Stem, W/wo Contrast : [facility] Accession Number: [id number] Patient Name: Yash Solis Date of : 1990 Date of Exam: 02-05-2024 Referring Physician: Matt Wells [facility] [address] [facility], [address] [place], [place] [address] Exam: MR Brain (C-/C+) CPT 37178 Room Description: [facility] 3.0T MR Brain (C-/C+) CPT 37552 INDICATION / CLINICAL QUESTION: Asymmetrical sensorineural hearing [...] Electronically Signed By: Conchis WELLS PA-C [address] [place] [address], [phone], [facility] 02/09/2024 12:48:33 Mri, Brain + Brain Stem, W/wo Contrast : [facility] Accession Number: [id number] Patient Name: Yash Solis Date of : 1990 Date of Exam: 02-05-2024 Referring Physician: Matt Wells [facility] [address], [address] [place], [place] [address] Exam: MR Brain (C-/C+) CPT 69372 Room Description: [facility] 3.0T MR Brain (C-/C+) CPT 43528 INDICATION / CLINICAL QUESTION: Asymmetrical sensorineural hearing [...] Electronically Signed By: Conchis WELLS PA-C [address] [place] [address], [phone], [facility] 02/11/2024 08:49:50 Problems Name Problem SNOMED Code Status Onset Date Resolution Date Notes Provider Name and Address Organization Details Recorded Time Asymmetrical sensorineural hearing loss 107830045 Active 2023 Safia velarde [place] - [facility] [place] 4 10:36:52 Sensorineural hearing loss of bilateral ears 342642599 Active 2024 CHRISTIANO WEBB , AUD [address] [address], [place], [phone], [facility] - [facility] [place] 5 11:01:15 Cyst of skin 828487338 Active 2024 EDUARDO TELLO PA-C [address] [address], [place], [phone], [facility] - [facility] [place] 5 11:42:15 Problem Notes None recorded. Procedures Surgical History Date Name Laterality Status Provider Name and Address Organization Details Recorded Time 10/09/2024 Air & Speech Audio with Tymps - 27924, 11605 & 84727 completed JOANNA JOYA [address] [facility],[address], [address], [facility] - [facility] [place] 10/09/2024 11:01:00 12/24/2023 Comp Audio with Tymps - 00247 & 20931 completed Safia Villalobos [place] - [facility] [place] 12/24/2023 10:36:35 Imaging Results None recorded. Procedure Notes None recorded. Medical Equipment None Reported. Allergies Allergen ID Allergen Name Allergen Category Reaction Reaction Severity Criticality Documentation Date Start Date Code Code System Note Provider Name and Address Organization Details Recorded Time 616788 shellfish derived food,medi cation Not available Not available Not available 12/24/2023 Rhiannon velarde [place] - [facility] [place] 4 10:10:37 Medications Name Sig Start Date [...] Updated DateTime 10/09/2024 180.34 cm 26.4 kg/m2 57772.96 g Mariel Johnson [place] - [facility] 10/09/2024 11:09:46 Date Recorded Body height Body mass index (BMI) Body weight Provider Name and Address Organization Details Last Updated DateTime 12/24/2023 180.34 cm 24.8 kg/m2 96474.44 g Rhiannon Osei [place] - [facility] 12/24/2023 11:10:29 Date Recorded Body height Provider Name an d Address Organization Details Last Updated DateTime 03/23/2025 180.34 cm ELISEO SHERMAN [place] - [facility] 03/23/2025 14:54:46 Social History None recorded. Functional Status None recorded. Mental Status None recorded. Family History Nothing Reported. Medical History Condition Response Migraines Y Anxiety Y Depression Y Asthma Y Past Encounters Encounter ID Performer Location Encounter Start Date Encounter Closed Date Diagnosis/Indication Diagnosis SNOMED-CT Code Diagnosis ICD10 Code Diagnosis IMO Codes Diagnosis Note [id number] MATT WELLS PA-C [facility] [address] [address] 12/24/2023 09:33:10 12/24/2023 11:25:56 Asymmetrical sensorineural hearing loss 781442668 H90.5 Audiologic al evaluation results: Right ear: Normal sloping to a mild sensorineu ral hearing loss with excellent word recognitio n. Left ear: Normal sloping to a moderate sensorineu ral hearing loss with excellent word recognitio n. Asymmetric SNHL at 3-6k Hz, or 10-30dB, worst in the left. Tympanomet ry: Right Ear:Type A Left Ear:Type A [id number] MATT WELLS PA-C [facility] [address] [address] 02/29/2024 12:58:07 02/29/2024 13:34:02 Asymmetrical sensorineural hearing loss 699153487 H90.5 [id number] EDUARDO TELLO PA-C [facility] [address] [address] 10/09/2024 10:28:37 10/09/2024 11:29:46 Sensorineural hearing loss of bilateral ears 809097102 H90.3 [id number] Audiologic al evaluation results: Right ear: Normal through 3 kHz sloping to a moderate sensorineu ral hearing loss with excellent word recognitio n. Left ear: Normal through 3 kHz sloping to moderately severe sensorineu ral hearing loss with excellent word recognitio n. Tympanomet ry: Right Ear:Type A Left Ear:Type A Cyst of skin 975625437 L 72.9 91399 [id number] ASHWINI CONCEPCION MD [facility] [address] [address] 01/15/2025 10:54:05 01/15/2025 11:46:50 Cyst of skin 183880642 L72.9 [id number] ALIREZA DA SILVA [facility] [address] [place] [address] 03/23/2025 14:48:45 03/23/2025 15:18:51 Cyst of skin 100509956 L72.9 [id number] Health Concerns Section Related Observation LastModified by Organization Detai ls LastModified Time None Recorded Concern Status LastModified by Organization Details LastModified Time None Recorded Advance Directives Directive None Recorded Payers Insurance Date Sequence Insurance Name Policy Number Policy Fraser Covered Member ID Fraser Member ID Guarantor Name 04/17/2025 1 [place] [id number] Yash Ribera Notes Date Note Type Note Provider Name and Address Organization Details Recorded Time 12/24/2023 text/html ROS as noted in the HPI 33-year-old male presents for evaluation of tinnitus and hearing loss. He has been having yearly hearing screening at [facility] and was noted to have increasing gap between the left and the right ear. He does not notice this day today. Does not struggle with his hearing but does struggle with the tinnitus, particularly at night when he is trying to fall asleep when it is worse. He does have depression and anxiety. MATT WELLS PA-C [address] [place] [address], [phone], [facility] 12/24/2023 11:35:51 02/29/2024 text/html ROS as noted in the HPI 33-year-old male presents for MRI review. MRI was reviewed for asymmetric sensorineural hearing loss, left greater than right. Hearing loss was in the higher tones 2 months ago according to office testing. He has had persistent tinnitus but no changes in hearing. ASHWINI CONCEPCION MD 100 [facility],[address], [address], [place] - [facility] 03/01/2024 14:10:27 10/09/2024 text/html ROS as noted in the [facility] 33-year-old male with high-frequency sensorineural hearing loss presents for reevaluation of the hearing. He reports hearing is stable since last seen 10 months ago. He is avoiding loud noise exposure. He would like to discuss recurring bump behind his left ear. He has had this for 10 years. He frequently pops this bump. BISHNU DOMINIQUE MD [address] [facility],[address], [address], [facility] - [facility] 10/09/2024 18:06:31 01/15/2025 text/html 34-year-old male seen by PA [...] lump behind the ear. ASHWINI CONCEPCION MD 100 [facility],[address], [address], [facility] 01/15/2025 11:47:01 03/23/2025 text/html ROS as noted in the [facility] 34 year old male, s/p excision of left postauricular cyst performed 03/09/[address] Concepcion, presents for postoperative evaluation. Patient is doing well following surgery. He has no acute concerns to report today. Denies pain, fever, purulent discharge, and bleeding from the incision site. ZULEMA OSORIO MD [address] [facility],[address], [address], [facility] 03/29/2025 16:37:35
--- OUTSIDE RECORDS SUMMARY | 2025-04-29 16:37 | XMS_ITS | Clinical Summary ---
Author Organization [employer] Address [address] [facility] [address] [place] [address] Care Team Providers Care Radiological Health Specialist Name Role Phone Martina Chowdhury MD Primary [...] Health Integration Plan Internal Follow up with [facility] Patient Self Plan Patient to utilize skills provided in intervention , Patient to reach out to [facility] team as needed, Comply with [...] effects. Currently receiving OP individual therapy at [facility] but he reports not being satisfied with [...] Health Integration Plan Internal Follow up with [facility] External OP BH therapy referral and OP psychiatry Referral Patient Self Plan Patient to utilize skills provided in intervention , Patient to reach out to [facility] team as needed, Comply with medication , Patient to engage in OP therapy , and Patient to reach out to [facility] as needed. Pt is currently connected with a therapist at [facility] and has telehealth sessions weekly. [...] Health Integration Plan Internal Follow up with [facility] Patient Self Plan Patient to utilize skills provided in intervention , Patient to reach out to [facility] team as needed, Patient to engage in OP therapy , and Patient to reach out to [facility] as needed, patient agreed to follow safety plan. Pt is currently connected with a therapist at [facility] and has telehealth sessions weekly. Pt would like to follow-up with [facility] clinician during his next medical appointment. Hearing loss 07/20/2023 FRANK (generalized anxiety disorder) 11/19/2022 Assessment & Plan (12/29/2023 2:23 PM EDT): PLAN: (check all that apply) Behavioral Health Integration Plan Internal Follow up with [facility] Patient Self Plan Patient to utilize skills provided in intervention , Patient to reach out to [facility] team as needed, Comply with medication , Patient to engage in OP therapy , and Patient to reach out to [facility] as needed Pt was giving with information from [facility] (walk-in hours, contact information and address) to [...] effects. Currently receiving OP individual therapy at [facility] but he reports not being satisfied with [...] Health Integration Plan Internal Follow up with [facility] External OP BH therapy referral and OP psychiatry Referral Patient Self Plan Patient to utilize skills provided in intervention , [facility], Comply with medication , Patient to engage in OP therapy , and Patient to reach out to [facility] as needed. Pt is currently connected with a therapist at [facility] and has telehealth sessions weekly. [...] Health Integration Plan Internal Follow up with [facility] Patient Self Plan Patient to utilize skills provided in intervention , Patient to reach out to [facility] team as needed, Patient to engage in OP therapy , and Patient to reach out to [facility] as needed, patient agreed to follow safety plan. Pt is currently connected with a therapist at [facility] and has telehealth sessions weekly. Pt would like to follow-up with [facility] clinician during his next medical [...] seek support PLAN: 1. Follow up with [facility]: Not recommended for follow-up 2. 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 Hep B not immune to start series today --- -referred to national van owner operator for chronic bilateral hearing loss-pd to get apt -labs 11/2022 WBC 4.1<----4.3,ANC 1700 --will repeat CBC in 3 mo if ANC < 1500 will refer to invoice checker Assessment & Plan (11/18/2022 9:07 PM EDT): -labs x annual exam will RTC in fasting -pt agreed to have STI testing including HIV to have for baseline -vaccines: s/p COVID-19 x2, today bivalent, Tdap and P20, unsure about HPV vaccine-advise that if interested can get vax at vaccine clinic --- -referred to national van owner operator for chronic bilateral hearing loss Mild intermittent [...] Encounters Date Type Department Care Team Description 04/29/2025 Orders Only GENERIC EXTERNAL DATA DEPARTMENT Provider, Generic External Data 04/02/2025 Orders Only [facility] [address], [place] [phone] Martina Chowdhury MD Chest discomfort (Primary Dx); Skipped beats 04/02/2025 Telephone [facility] [address], [place] [phone] Trice Zhou, RN Results 02/27/2025 Orders Only [facility] [address], [place] [phone] Martina Chowdhury MD Chest discomfort (Primary Dx) 02/27/2025 Telephone [facility] [address] [place], [place] [phone] Martina Chowdhury MD HOLTER MONITOR ORDER 01/31/2025 10:45 AM EDT Office Visit [facility] [address] [place] [address] Martina Chowdhury MD Annual physical exam (Primary Dx); Chest discomfort; Encounter for immunization; Transaminitis; Healthcare maintenance; FRANK (generalized anxiety disorder); Severe episode of recurrent major depressive disorder, without psychotic features (CMS/HCC); Suicidal ideation; Tobacco abuse; Skipped beats 01/31/2025 Travel from Last 3 Months Immunizations Immunization [...] Questionnaire-9 Score 01/31/2025 Patient Health Questionnaire-9 Score 19 01/31/2025 [...] Description 06/05/2025 11:30 AM EST Office Visit [facility] [address], [place] [phone] Martina Chowdhury MD [address] [place], [place] [phone] Health Maintenance Due Date Last Done Comments [...] QL NAAT Routine 04/29/2025 3:49 PM EST ECG 12-LEAD Routine 01/31/2025 11:31 AM EDT Chest discomfort HEPATITIS C AB W/REFL TO HCV RNA, QN, PCR Routine 08/08/2024 10:44 AM EDT Annual physical exam HIV 1/2 ANTIGEN/ANTIBODY, FOURTH GENERATION W/RFL Routine 08/08/2024 10:44 AM EDT Annual physical exam LIPID PANEL, STANDARD Routine 08/08/2024 10:44 AM EDT Annual physical exam from Last 3 Months or Most Recently Relevant to Health Maintenance Results * (ABNORMAL) SARS-CoV-2 RNA, Influenza A/B, and RSV RNA, Ql NAAT (04/29/2025 3:49 PM EST) Influenza A PCR POSITIVE(A) Negative [facility] Influenza B PCR NEGATIVE Negative [facility] Resp Syncy Virus RNA Qual PCR NEGATIVE Negative [facility] SARS COV2 PCR NEGATIVE Negative [facility] Comment:All test results mus t [...] use by authorized laboratories.Testing performed on the [employer] GeneXpert utilizingreal-time RT-PCR.All SARS CoV2 and positive influenza A/B results arereported to [facility]. 04/29/2025 3:49 PM EST 04/29/2025 3:51 PM EST us Generic External Data Provider LAB MICROBIOLOGY - GENERAL ORDERABLES Final Result Performing Organization Address [facility] Co de Phone Number [facility] [address] [place] [phone] * ECG 12 lead (01/31/2025 11:31 AM EDT) Narrative Martina Chowdhury MD - 01/31/2025 11:31 AM EDT -EKG today NSR,Qtc 387 ,HR 70, no ischemic changes ,only aVL low QRS us Martina Ash MD ECG ORDERABLES F inal Result * Hepatitis C Antibody with Reflex to HCV, RNA, Quantitative, Real-Time PCR (08/08/2024 10:44 AM EDT) Hepatitis C Antibody Nonreactive Nonreactive [facility] Comment:Antibodies to HCV no t detected; does not exclude early acuteHCV infection. Blood Venous blood specimen / Unknown 08/08/2024 10:44 AM EDT 08/08/2024 11:21 AM EDT Martina Ash MD LAB BLOOD ORDERAB LES Final Result Performing Organization Address [facility] Co de Phone Number [facility] [address] [place] [phone] * HIV-1/2 Antigen and Antibodies, Fourth Generation, with Reflexes (08/08/2024 10:44 AM EDT) HIV AB/AG Nonreactive Nonreactive [facility] Comment:HIV-1 p24 Ag and/or HIV-1/HIV-2 Ab not detected.A test result that is nonreactive does not exclude thepossibility of exposure to or infection with HIV-1 and/orHIV-2. Nonreactive results in this assay for individualswith prior exposure to HIV-1 and/or HIV-2 may be due toantigen and antibody levels that are below the limit ofdetection of this assay.The [employer] HIV Ag/Ab Combo assay result andsupplemental assay results should be interpreted inconjunction with the patient's clinical presentation,history and other laboratory results. If the results areinconsistent with clinical evidence, additional testing issuggested to confirm the result. Blood Venous blood specimen / Unknown 08/08/2024 10:44 AM EDT 08/08/2024 11:21 AM EDT us Martina Ash MD LAB BLOOD ORDERAB LES Final Result [facility] [address] [place] [phone] * (ABNORMAL) Lipid Panel, Standard (08/08/2024 10:44 AM EDT) Triglycerides 145 <150 mg/dL [facility] Comment:Desirable Triglyceri de: less than 150 mg/dLBorderline High Triglyceride 150-199 mg/dLHigh Triglyceride: 200-499 mg/dLVery High Triglyceride: greater than or equal to 5OO mg/dL Cholesterol 189 <200 mg/dL [facility] Comment:Desirable Cholestero l: less than 200 mg/dLBorderline High Cholesterol: 200-239 mg/dLHigh Cholesterol: greater than 239 mg/dL LDL Cholesterol Calculated 134(H) <100 mg/dL [facility] Comment:Desirable LDL: less than 100 mg/dLNear Optimal/Above Optimal LDL: 110- 129 mg/dLBorderline High LDL: 130-159 mg/dLHigh LDL: 160-189 mg/dLVery High LDL: greater than or equal to 190 mg/dL HDL Cholesterol 26(L) >40 mg/dL [facility] Comment:Desirable HDL: great er than 40 mg/dL Note: This HDL assay may give artificially low results in patients with liver disease. Blood Venous blood specimen / Unknown 08/08/2024 10:44 AM EDT 08/08/2024 11:21 AM EDT Martina Ash MD LAB BLOOD ORDERAB LES Final Result [facility] [address] [place] [phone] from Last 3 Months or Most Recently Relevant to Health Maintenance [place] [address] [place] [address] C3 Care Teams Radiological Health Specialist Relationship Specialty Start Date End Date Martina Chowdhury MD [address] [place] [phone] PCP - General Internal Medicine 08/25/22
--- OUTSIDE RECORDS SUMMARY | 2025-04-29 16:37 | XMS_ITS | Encounter Summary ---
Author Organization [employer] Address [address] [place] [address] [address] [place] [address] Care Team Providers Care Airplane Refueler Name Role Phone Martina Chowdhury MD Primary Care Pro vider Reason for Visit * Reason Comments Med Refill Encounter Details Date Type Department Care Team (Late Contact Info) Description 11/18/2022 Refill [facility] MEDICINE [address] [place] [address] [phone] Martina Chowdhury MD [address] [place] [address] [phone] Social History Tobacco Use Types Packs/Day Years [...] Department Care Team (Late Contact Info) Description 06/05/2025 11:30 AM EST Office Visit [facility] MEDICINE [address] [place] [address] [phone] Martina Chowdhury MD [address], [place] [phone] documented as of this encounter Visit Diagnoses Not on filedocumented in this encounter Additional Health Concerns Assessment Noted Time PHQ-9 Depression Total Score: 11 023 2:11 PM EDT documented as of this encounter Care Teams Airplane Refueler Relationship Specialty Start Date End Date Martina Chowdhury MD [address] [place] [phone] PCP - General Internal Medicine 08/25/22 documented as of this encounter
[2025-04-29 17:33] VITALS: BP 114/66; PULSE 93; RESP 18; TEMP 37.5; O2SAT 95
[2025-04-29 17:40] VITALS: BP 114/66; PULSE 93; RESP 18; TEMP 37.5; O2SAT 95
== END 2025-04-29 17:44 | disposition home or self-care (01) ==
PROVIDERS: Nurse Practitioner; Emergency Provider Emergency Medicine Emergency Medical Services; PCP Student in an Organized Health Care Education/Training Program
DX: J10.1 Influenza due to other identified influenza virus with other respiratory manifestations (principal); J45.909 Unspecified asthma, uncomplicated; Z03.818 Encounter for observation for suspected exposure to other biological agents ruled out
CPT/HCPCS: 87637; 99283; J8540